=== PATIENT | male | born 1975 | race Caucasian/White ===

== ENCOUNTER 2018-07-30 10:47 | Emergency (ER) | payer MEDICARE, MEDICAID ==
[2018-07-30] MEDS ORDERED: METHYLPREDNISOLONE SOD SUCC 125MG/2ML VIAL ONE (11:43)
[2018-07-30 11:50] LABS: BASOPHILS % (AUTO) 0.8 % (0.0-5.0); EOSINOPHILS % (AUTO) 0.3 % (0.0-8.0); HEMATOCRIT 38.9 % (42-54); LYMPHOCYTES % (AUTO) 15.1 % (21.0-51.0); MEAN CORPUSCULAR HEMOGLOBIN 27.2 pg (27.0-33.0); MEAN CORPUSCULAR HGB CONC 33.5 g/dL (32.0-36.0); MEAN CORPUSCULAR VOLUME 81.3 fL (79-99); MONOCYTES % (AUTO) 5.5 % (3.0-13.0); NEUTROPHILS % (AUTO) 78.3 % (40.0-77.0); PLATELET COUNT (AUTO) 455 K/uL (130-400); RED BLOOD CELL COUNT(AUTO) 4.78 MIL/uL (4.50-6.20); WHITE BLOOD COUNT (AUTO) 10.9 K/uL (4.8-10.8)
[2018-07-30 11:55] LABS: CREATININE 1.1 mg/dL (0.5-1.5); POTASSIUM 3.8 mmol/L (3.5-5.1)
[2018-07-30] MEDS ORDERED: IPRATROPIUM/ALBUTEROL SULFATE 3 ML SOLUTION IH ONE (11:56)
[2018-07-30 12:00] LABS: INR 1.04 (0.85-1.15); PARTIAL THROMBOPLASTIN TIME 33.4 SEC (26.3-35.5); PROTHROMBIN TIME 10.9 SEC (9.6-11.6)
[2018-07-30 12:02] LABS: ALBUMIN 3.5 g/dL (3.5-5.0); BILIRUBIN,TOTAL 0.3 mg/dL (0.2-1.0); TOTAL PROTEIN, SERUM 8.4 g/dL (6.0-8.3)
[2018-07-30 12:13] LABS: B-TYPE NATRIURETIC PEPTIDE 20 pg/mL (0-100)
== END 2018-07-30 13:48 | disposition home or self-care (01) ==
LOC: EDH 10:47
DX: J20.9 Acute bronchitis, unspecified (principal); I87.2 Venous insufficiency (chronic) (peripheral); I10 Essential (primary) hypertension; F41.9 Anxiety disorder, unspecified; F32.9 Major depressive disorder, single episode, unspecified; Z87.891 Personal history of nicotine dependence; Z98.890 Other specified postprocedural states
CPT/HCPCS: 36415; 71045; 80053; 82550; 83880; 84484; 85025; 85610; 85730; 93005; 94640; 96374; 99285; J2930

== ENCOUNTER → 2018-08-22 | Outpatient (CLI) | payer MEDICARE | END | disposition home or self-care (01) | LOC: RAH 08:27 | PROVIDERS: ATTEND Internal Medicine | DX: K44.9 Diaphragmatic hernia without obstruction or gangrene (principal); K80.20 Calculus of gallbladder without cholecystitis without obstruction; M47.814 Spondylosis without myelopathy or radiculopathy, thoracic region; I71.2 Thoracic aortic aneurysm, without rupture; M51.34 Other intervertebral disc degeneration, thoracic region | CPT/HCPCS: 71250 ==

== ENCOUNTER → 2018-08-23 | Outpatient (CLI) | payer MEDICAID, MEDICARE ==
[~2018-08-23] MED LIST: ALBUTEROL SULFATE 0.083% 2.5 MG/3 ML INH IH ONE
== END | disposition home or self-care (01) ==
LOC: RESP 08:52
PROVIDERS: ATTEND Internal Medicine
DX: J40 Bronchitis, not specified as acute or chronic (principal)
CPT/HCPCS: 94060; 94727; 94729

== ENCOUNTER 2018-10-31 16:53 | Emergency (ER) | payer MEDICARE, MEDICAID ==
[2018-10-31 17:30] LABS: APPEARANCE,URINE Clear (CLEAR); BILIRUBIN,URINE Negative (NEGATIVE); COLOR,URINE Yellow (YELLOW); GLUCOSE, URINE (UA) Negative (NEGATIVE); KETONES,URINE Negative (NEGATIVE); LEUKOCYTE ESTERASE ,URINE Trace (NEGATIVE); NITRATE,URINE Negative (NEGATIVE); OCCULT BLOOD,URINE Negative (NEGATIVE); PH,URINE 6.5 (5.0-8.0); PROTEIN,URINE Negative (NEGATIVE); UROBILINOGEN,URINE 0.2 mg/dL (0.2-1.0)
[2018-10-31 17:34] LABS: AMPHET/METH SCREEN,URINE NEGATIVE (NEGATIVE); BARBITURATE SCREEN, URINE NEGATIVE (NEGATIVE); BENZODIAZEPINES SCREEN,URINE NEGATIVE (NEGATIVE); CANNABINOID SCREEN,URINE NEGATIVE (NEGATIVE); COCAINE SCREEN,URINE NEGATIVE (NEGATIVE); OPIATE SCREEN,URINE NEGATIVE (NEGATIVE); PHENCYCLIDINE SCREEN,URINE NEGATIVE (NEGATIVE)
[2018-10-31 17:54] LABS: BACTERIA,URINE Rare /HPF (None Seen); RBC,URINE None Seen /HPF (0-1); SQUAMOUS EPITHELIAL CELL,UR None Seen /HPF (0-2); WBC,URINE 0-1 /HPF (0-1)
[2018-10-31] MEDS ORDERED: MECLIZINE HCL 25 MG TABLET ONE (18:08)
[2018-10-31] MEDS ORDERED: ONDANSETRON HCL 4 MG/2 ML VIAL ONE (18:08)
[2018-10-31] MEDS ORDERED: SODIUM CHLORIDE 0.9% 1000ML 1,000 ML IV ONE (18:08)
[2018-10-31 19:05] LABS: BASOPHILS % (AUTO) 0.6 % (0.0-5.0); HEMATOCRIT 41.4 % (42-54); LYMPHOCYTES % (AUTO) 21.3 % (21.0-51.0); MEAN CORPUSCULAR HEMOGLOBIN 27.1 pg (27.0-33.0); MEAN CORPUSCULAR HGB CONC 32.5 g/dL (32.0-36.0); MEAN CORPUSCULAR VOLUME 83.5 fL (79-99); MONOCYTES % (AUTO) 12.8 % (3.0-13.0); NEUTROPHILS % (AUTO) 63.3 % (40.0-77.0); PLATELET COUNT (AUTO) 434 K/uL (130-400); RED BLOOD CELL COUNT(AUTO) 4.97 MIL/uL (4.50-6.20); RED CELL DISTRIBUTION WIDTH 15.4 % (11.0-15.5); WHITE BLOOD COUNT (AUTO) 10.6 K/uL (4.8-10.8)
[2018-10-31 19:28] LABS: POTASSIUM 3.6 mmol/L (3.5-5.1)
[2018-10-31 19:32] LABS: ALBUMIN 3.3 g/dL (3.5-5.0); BILIRUBIN,TOTAL 0.3 mg/dL (0.2-1.0); TOTAL PROTEIN, SERUM 7.9 g/dL (6.0-8.3)
== END 2018-10-31 19:46 | disposition home or self-care (01) ==
LOC: EDH 16:53
DX: R55 Syncope and collapse (principal); F32.9 Major depressive disorder, single episode, unspecified; I10 Essential (primary) hypertension; F41.9 Anxiety disorder, unspecified; Z98.890 Other specified postprocedural states
CPT/HCPCS: 36415; 70450; 80053; 80305; 81001; 84484; 85025; 93005; 96361; 96374; 99284; J2405; J7030

== ENCOUNTER 2019-01-11 07:30 | Emergency (ER) | payer MEDICARE, MEDICAID ==
[2019-01-11] MEDS ORDERED: ACETAMINOPHEN EXTRA STRENGTH 500 MG TABLET ONE (08:18)
[2019-01-11] MEDS ORDERED: ONDANSETRON HCL 4 MG/2 ML VIAL ONE (08:18)
[2019-01-11 08:22] LABS: BASOPHILS % (AUTO) 0.7 % (0.0-5.0); EOSINOPHILS % (AUTO) 2.6 % (0.0-8.0); HEMATOCRIT 37.6 % (42-54); LYMPHOCYTES % (AUTO) 21.4 % (21.0-51.0); MEAN CORPUSCULAR HEMOGLOBIN 27.3 pg (27.0-33.0); MEAN CORPUSCULAR HGB CONC 34.1 g/dL (32.0-36.0); MEAN CORPUSCULAR VOLUME 80.2 fL (79-99); MONOCYTES % (AUTO) 12.2 % (3.0-13.0); NEUTROPHILS % (AUTO) 63.1 % (40.0-77.0); PLATELET COUNT (AUTO) 396 K/uL (130-400); RED BLOOD CELL COUNT(AUTO) 4.69 MIL/uL (4.50-6.20); RED CELL DISTRIBUTION WIDTH 14.9 % (11.0-15.5); WHITE BLOOD COUNT (AUTO) 7.9 K/uL (4.8-10.8)
[2019-01-11 08:23] LABS: APPEARANCE,URINE Clear (CLEAR); BILIRUBIN,URINE Negative (NEGATIVE); COLOR,URINE Yellow (YELLOW); GLUCOSE, URINE (UA) Negative (NEGATIVE); KETONES,URINE Negative (NEGATIVE); LEUKOCYTE ESTERASE ,URINE Negative (NEGATIVE); NITRATE,URINE Negative (NEGATIVE); OCCULT BLOOD,URINE Negative (NEGATIVE); PROTEIN,URINE Negative (NEGATIVE); UROBILINOGEN,URINE 0.2 mg/dL (0.2-1.0)
[2019-01-11 08:47] LABS: POTASSIUM 3.8 mmol/L (3.5-5.1)
[2019-01-11 08:51] LABS: ALBUMIN 3.2 g/dL (3.5-5.0); BILIRUBIN,TOTAL 0.4 mg/dL (0.2-1.0)
== END 2019-01-11 10:30 | disposition home or self-care (01) ==
LOC: EDH 07:30
DX: R10.32 Left lower quadrant pain (principal); R11.2 Nausea with vomiting, unspecified; I10 Essential (primary) hypertension; F41.9 Anxiety disorder, unspecified; F32.9 Major depressive disorder, single episode, unspecified; Z98.890 Other specified postprocedural states
CPT/HCPCS: 36415; 74176; 80053; 81003; 83690; 85025; 96374; 99285; J2405

== ENCOUNTER 2019-08-05 18:12 | Emergency (ER) | payer MEDICARE, MEDICAID ==
[2019-08-05] MEDS ORDERED: ASPIRIN 81MG TAB.CHEW ONE (19:07)
[2019-08-05 19:35] LABS: BASOPHILS % (AUTO) 0.6 % (0.0-5.0); HEMATOCRIT 37.2 % (42-54); LYMPHOCYTES % (AUTO) 22.4 % (21.0-51.0); MEAN CORPUSCULAR HEMOGLOBIN 26.9 pg (27.0-33.0); MEAN CORPUSCULAR HGB CONC 33.5 g/dL (32.0-36.0); MEAN CORPUSCULAR VOLUME 80.3 fL (79-99); MONOCYTES % (AUTO) 13.3 % (3.0-13.0); NEUTROPHILS % (AUTO) 61.7 % (40.0-77.0); PLATELET COUNT (AUTO) 417 K/uL (130-400); RED BLOOD CELL COUNT(AUTO) 4.63 MIL/uL (4.50-6.20); RED CELL DISTRIBUTION WIDTH 15.3 % (11.0-15.5); WHITE BLOOD COUNT (AUTO) 8.5 K/uL (4.8-10.8)
[2019-08-05 19:41] LABS: APPEARANCE,URINE Clear (CLEAR); BILIRUBIN,URINE Negative (NEGATIVE); COLOR,URINE Yellow (YELLOW); GLUCOSE, URINE (UA) Negative (NEGATIVE); KETONES,URINE Negative (NEGATIVE); LEUKOCYTE ESTERASE ,URINE Negative (NEGATIVE); NITRATE,URINE Negative (NEGATIVE); OCCULT BLOOD,URINE Negative (NEGATIVE); PROTEIN,URINE Negative (NEGATIVE)
[2019-08-05 19:46] LABS: CREATININE 1.1 mg/dL (0.5-1.5); POTASSIUM 3.5 mmol/L (3.5-5.1)
[2019-08-05 19:47] LABS: INR 1.07 (0.85-1.15); PARTIAL THROMBOPLASTIN TIME 35.1 SEC (26.3-35.5); PROTHROMBIN TIME 11.2 SEC (9.6-11.6)
[2019-08-05 19:48] LABS: AMPHET/METH SCREEN,URINE NEGATIVE (NEGATIVE); BARBITURATE SCREEN, URINE NEGATIVE (NEGATIVE); BENZODIAZEPINES SCREEN,URINE NEGATIVE (NEGATIVE); CANNABINOID SCREEN,URINE NEGATIVE (NEGATIVE); COCAINE SCREEN,URINE NEGATIVE (NEGATIVE); OPIATE SCREEN,URINE NEGATIVE (NEGATIVE); PHENCYCLIDINE SCREEN,URINE NEGATIVE (NEGATIVE)
[2019-08-05 19:51] LABS: ALBUMIN 3.1 g/dL (3.5-5.0); BILIRUBIN,TOTAL 0.4 mg/dL (0.2-1.0); TOTAL PROTEIN, SERUM 8.4 g/dL (6.0-8.3)
[2019-08-05] MEDS ORDERED: IOHEXOL-350 75 ML VIAL IV ONE (20:32)
[2019-08-05] MEDS ORDERED: LORAZEPAM 2 MG/ML 1 ML VIAL ONE (20:41)
== END 2019-08-05 23:09 | disposition home or self-care (01) ==
LOC: EDH 18:12
DX: R07.89 Other chest pain (principal); R06.02 Shortness of breath; M79.89 Other specified soft tissue disorders; F41.9 Anxiety disorder, unspecified; F32.9 Major depressive disorder, single episode, unspecified; I10 Essential (primary) hypertension; Z90.49 Acquired absence of other specified parts of digestive tract; Z87.891 Personal history of nicotine dependence
CPT/HCPCS: 36415; 71045; 71275; 80053; 80305; 81003; 82550; 83880; 84484 ×2; 85025; 85378; 85610; 85730; 93005 ×2; 96374; 99285; J2060; Q9967

== ENCOUNTER → 2021-09-13 | Emergency (ER) | payer MEDICAID, MEDICARE | END | disposition left against medical advice (07) | LOC: EDH 12:29 | DX: M25.552 Pain in left hip (principal); Z53.21 Procedure and treatment not carried out due to patient leaving prior to being seen by health care provider ==

== ENCOUNTER 2024-09-19 10:07 | Inpatient (IN) | payer MEDICARE ==
[~2024-09-19] VITALS: Ht 193 cm; Wt 164.7 kg
[2024-09-19] MEDS ORDERED: ceFEPime HCL 1 GM VIAL IVPB SCH (11:00)
[2024-09-19] MEDS: ceFEPime HCL 1 GM VIAL IVPB ONE (11:06)
[2024-09-19 11:16] LABS: BASOPHILS # (AUTO) 0.07 K/uL (0.00-0.20); BASOPHILS % (AUTO) 0.7 % (0.0-5.0); EOSINOPHILS # (AUTO) 0.33 K/uL (0.00-0.70); EOSINOPHILS % (AUTO) 3.2 % (0.0-8.0); HEMATOCRIT 37.5 % (42-54); IMMATURE GRANULOCYTE ABSOLUTE 0.09 K/uL (0-1); LYMPHOCYTES # (AUTO) 1.6 K/uL (1.0-4.8); LYMPHOCYTES % (AUTO) 15.5 % (21.0-51.0); MEAN CORPUSCULAR HEMOGLOBIN 24.3 pg (27.0-33.0); MEAN CORPUSCULAR HGB CONC 31.2 g/dL (32.0-36.0); MONOCYTES # (AUTO) 1.2 K/uL (0.1-1.0); MONOCYTES % (AUTO) 11.3 % (3.0-13.0); NEUTROPHILS % (AUTO) 68.4 % (40.0-77.0); PLATELET COUNT (AUTO) 504 K/uL (130-400); RED BLOOD CELL COUNT(AUTO) 4.81 MIL/uL (4.50-6.20); WHITE BLOOD COUNT (AUTO) 10.2 K/uL (4.8-10.8)
[2024-09-19] MEDS: VANCOMYCIN KIT 1 GM/250 ML IV.KIT IV ONE (11:32)
[2024-09-19 11:43] LABS: CREATININE 1.2 mg/dL (0.5-1.3)
--- NOTE | 2024-09-19 11:55 | ERN ---
General Chief Complaint: Wound Check Stated Complaint: WOUND RT LEG Time Seen by MD: 10:08 History of Present Illness Initial Comments 49-year-old male came in for wound to leg with drainage in his started out as a boil however has been getting worse. Patient is a by had no concerns. Allergies: Coded Allergies: No Known Drug Allergies (Verified Allergy, 10/08/13) Past Medical History Past Medical History: Asthma, Hypertension Medical History Other: LYMPTEDEMA Past Surgical History: Cholecystectomy Surgical History Other: LEE KNEE ROS Dictation CONSTITUTIONAL: Negative except for HPI HEAD/FACE: Negative except for HPI EENT: Negative except for HPI RESPIRATORY: Negative except for HPI GASTROINTESTINAL/ABDOMINAL: Negative except for HPI GENITOURINARY: Negative except for HPI MUSCULOSKELETAL: Negative except for HPI INTEGUMENTARY: Negative except for HPI NEUROLOGICAL/PSYCH: Negative except for HPI HEMATOLOGIC/LYMPHATIC: Negative except for HPI All Systems Negative, Except as noted above. 13 point review of systems assessed and all negative except for above. Physical Exam Physical Exam Dictation There is extensive swelling along with erythema noted on the right leg wound with drainage there is some tenderness on outpatient around the draining site. Results Laboratory and Microbiology Lab and Micro Result Laboratory Tests Test 09/19/24 11:03 White Blood Count 10.2 K/uL (4.8-10.8) Red Blood Count 4.81 MIL/uL (4.50-6.20) Hemoglobin 11.7 g/dL (14.0-18.0) L Hematocrit 37.5 % (42-54) L Mean Corpuscular Volume 78.0 fL (79-99) L Mean Corpuscular Hemoglobin 24.3 pg (27.0-33.0) L Mean Corpuscular Hemoglobin Concent 31.2 g/dL (32.0-36.0) L Red Cell Distribution Width 15.0 % (11.0-15.5) Platelet Count 504 K/uL (130-400) H Mean Platelet Volume 8.5 fL (7.5-10.5) Immature Granulocyte % (Auto) 0.9 % (0-1) Neutrophils (%) (Auto) 68.4 % (40.0-77.0) Lymphocytes (%) (Auto) 15.5 % (21.0-51.0) L Monocytes (%) (Auto) 11.3 % (3.0-13.0) Eosinophils (%) (Auto) 3.2 % (0.0-8.0) Basophils (%) (Auto) 0.7 % (0.0-5.0) Neutrophils # (Auto) 7.0 K/uL (1.8-7.7) Lymphocytes # (Auto) 1.6 K/uL (1.0-4.8) Monocytes # (Auto) 1.2 K/uL (0.1-1.0) H Eosinophils # (Auto) 0.33 K/uL (0.00-0.70) Basophils # (Auto) 0.07 K/uL (0.00-0.20) Absolute Immature Granulocyte (auto 0.09 K/uL (0-1) Nucleated Red Blood Cells 0.0 % (0.0-0.19) Red Blood Cell Morphology See comments Sodium Level 141 mmol/L (136-145) Potassium Level 4.0 mmol/L (3.5-5.1) Chloride Level 105 mmol/L (101-111) Carbon Dioxide Level 31 mmol/L (21-32) Blood Urea Nitrogen 14 mg/dL (7-18) Creatinine 1.2 mg/dL (0.5-1.3) Glomerular Filtration Rate Calc 74 mL/min (>90) Random Glucose 86 mg/dL (70-105) Lactic Acid Level 1.8 mmol/L (0.8-2.5) Total Calcium 9.2 mg/dL (8.5-10.1) MDM MDM: Differential diagnosis: Rationale: Tests considered and ordered secondary to shared decision making include: Previous outside records reviewed: Old ER visits. Risk of complication and/or morbidity or mortality of patient management: None Medications-Per medication reconciliation Need for hospitalization: Patient does meet criteria for hospitalization. Need for emergency major/minor surgery: No There are no social concerns with this patient. Prescription drug management Prescriptions will include symptomatic care Patient's prior external medical records from other ER visits were reviewed by me as indicated. Prior testing and results from previous visits were reviewed. Prior tests were taken into account with medical decision making and resource utilization, independent historian/historians were used to obtain complete medical history. I independently interpreted the test that were performed, results were reviewed by me and considered findings on radiology if ordered. Medical management and examination interpretation discussions were had by me with other qualified healthcare professionals as indicated for the patient's care. ED Course Orders Procedure Category Date Status Time Cbc With Differential LAB 09/19/24 Complete 10:51 Basic Metabolic Panel LAB 09/19/24 Complete 10:51 Lactic Acid LAB 09/19/24 Complete 10:51 Procalcitonin LAB 09/19/24 In Process 10:51 Vancomycin 1g/250ml PHA 09/19/24 Complete Kit (Vancomycin 1g/2 11:00 Cefepime Hcl 1 Gm PHA 09/19/24 Complete Vial (Maxipime 1 Gm Vi 11:00 Cefepime Hcl 1 Gm PHA 09/19/24 Complete Vial (Maxipime 1 Gm Vi 11:00 Current Medications Medications (Trade) Dose Ordered Sig/Enio Route PRN Reason Start Time Stop Time Status Last Admin Dose Admin Cefepime HCl (MAXipime 1 GM vial) 1 gm ONCE IVPB 09/19/24 11:00 09/19/24 10:54 DC Cefepime HCl (MAXipime 1 GM vial) 1 gm ONCE ONCE IVPB 09/19/24 11:00 09/19/24 11:01 DC 09/19/24 11:06 Vancomycin HCl (Vancomycin 1g/ 250ml Kit) 1 gm ONCE ONCE IV 09/19/24 11:00 09/19/24 11:01 DC 09/19/24 11:32 Vital Signs Date Time Temp Pulse Resp B/P (MAP) Pulse Ox O2 Delivery O2 Flow Rate FiO2 09/19/24 10:36 77 18 150/87 99 Room Air* 0 21 09/19/24 10:14 74 16 97 Room Air 0 DX & DISP Disposition: Inpatient Departure Impression: Primary Impression: Cellulitis, leg Additional Impression: Leg abscess Condition: Stable Referrals: TANK BARNEY (PCP) ERASTO CAMPOS MD Sep 19, 2024 11:55
[2024-09-19] MEDS ORDERED: VANCOMYCIN PROTOCOL PER PHARMACY IV SCH (14:00)
[2024-09-19] MEDS ORDERED: ceFEPime HCL 2 GM VIAL IVPB SCH (14:00)
[2024-09-19] MEDS ORDERED: ondanSETRON 4MG INJ IVP PRN (14:00)
[2024-09-19] MEDS ORDERED: morPHINE 2 MG SYG IVP PRN (14:00)
--- NOTE | 2024-09-19 14:00 | HP ---
[facility] HISTORY AND PHYSICAL Date of Service: Sep 19, 2024 Time of Service: 13:49 HISTORY OF PRESENT ILLNESS: [49 [facility] with complaints of Right lower extremity redness, wound drainage and pain. According the patient's mother they saw his leg 3 days a go with a small boil, and it became progressively worse and started draining today, hence they decided to come to the ED for further evaluation. In the ED, his VS reviewed: pulse 74, respiratory rate 16, blood pressure 150/87, pulse oximetry 97% on room air. Laboratory data reviewed, WBC 10.2, HGB 11.7, HCT 37.5, no left shift noted. His chemistry is fairly unremarkable, procalcitonin 0.10. Patient is afebrile. Denies any pain at this time. Patient was seen and examined in ED 19, his right lower extremity noted with draining wound with serosanguineous drainage noted. He was referred to the hospitalist for further evaluation and management. ] REVIEW OF SYSTEMS CONSTITUTIONAL: Denies fevers, chills, or night sweats. No unintentional weight loss reported. NEUROLOGICAL: Denies headache, amaurosis fugax, motor weakness, sensory deficit, vertigo/spinning sensation, gait abnormalities, or tremors. ENT: No hearing loss, otalgia, otorrhea, rhinitis, rhinorrhea, hoarseness, or sore throat. CARDIOVASCULAR: Denies any exertional angina, dyspnea on exertion, orthopnea, paroxysmal nocturnal dyspnea, palpitations, life-threatening arrhythmias, claudication. PULMONARY: Denies any shortness of breath, cough, phlegm/sputum, hemoptysis, pleuritic chest pain. SLEEP: Denies morning headaches, daytime somnolence or napping. Denies difficulty falling asleep, staying asleep, waking from sleep. Denies knowledge of snoring. GASTROINTESTINAL: Denies any type of dysphagia to either liquids or solids. Denies nausea, vomiting, pyrosis, early satiety, abdominal pain, diarrhea, constipation, or changes in stool consistency or caliber. Denies coffee-ground emesis, hematemesis, hematochezia, or melanotic stools. GENITOURINARY: Denies frequency, urgency, nocturia, hematuria or incontinence (Storage/Irritative symptoms.) Low urinary stream, straining to void, urinary intermittency or hesitancy, splitting of the voiding stream, terminal dribbling. ENDOCRINOLOGIC: Denies polyuria, polydipsia, polyphagia or heat/cold intolerances. HEMATOLOGIC: Denies thrombophilia/previous clots, or coagulopathy/bleeding disorders. ONCOLOGIC: Denies personal history of malignancy. DERMATOLOGIC: Reports redness to right LE, with pus noted PSYCHIATRIC: Denies any suicidal or homicidal ideation. Denies hallucinations. PAST MEDICAL HISTORY: [ ] PAST SURGICAL HISTORY: [ ] PAST SOCIAL HISTORY: [ ] FAMILY HISTORY: [ ] Coded Allergies: No Known Drug Allergies (Verified Allergy, 10/08/13) PHYSICAL EXAM GENERAL APPEARANCE: The patient is awake, alert, and oriented, in no acute cardiopulmonary distress. NEUROLOGICAL: Cranial nerves II-XII grossly intact. Motor is 5/5 in bilateral upper and lower extremities proximal to distal. No sensory deficits. HEENT: Face is symmetric. Pupils are equal and reactive. Extraocular movements are intact. NECK: Supple. No JVD. No thyromegaly. No submental, submandibular, pre- /postauricular, occipital or supraclavicular lymphadenopathy. CHEST: Normal chest expansion. No Telemetry. LUNGS: Absence of any rales, rhonchi or any wheezing. CARDIOVASCULAR: Regular. S1 and S2 normal. No appreciable rubs, murmurs or gallops. ABDOMEN: Soft, nontender, and nondistended. There is no rebound, voluntary guarding, or rigidity. : Deferred. No Bennett. EXTREMITIES: BLE lymphedema with right LE drainage noted SKIN: Lymphedema, RLE wound Vital Sign (Last 24 Hours) 09/19/24 12:11 Pulse 80 Resp 16 B/P (MAP) 151/78 Pulse Ox 96 O2 Delivery Room Air* O2 Flow Rate 0 FiO2 21 LABS: Laboratory: Test 09/19/24 11:03 Range/Units White Blood Count 10.2 4.8-10.8 K/uL Red Blood Count 4.81 4.50-6.20 MIL/uL Hemoglobin 11.7 L 14.0-18.0 g/dL Hematocrit 37.5 L 42-54 % Mean Corpuscular Volume 78.0 L 79-99 fL Mean Corpuscular Hemoglobin 24.3 L 27.0-33.0 pg Mean Corpuscular Hemoglobin Concent 31.2 L 32.0-36.0 g/dL Red Cell Distribution Width 15.0 11.0-15.5 % Platelet Count 504 H 130-400 K/uL Mean Platelet Volume 8.5 7.5-10.5 fL Immature Granulocyte % (Auto) 0.9 0-1 % Neutrophils (%) (Auto) 68.4 40.0-77.0 % Lymphocytes (%) (Auto) 15.5 L 21.0-51.0 % Monocytes (%) (Auto) 11.3 3.0-13.0 % Eosinophils (%) (Auto) 3.2 0.0-8.0 % Basophils (%) (Auto) 0.7 0.0-5.0 % Neutrophils # (Auto) 7.0 1.8-7.7 K/uL Lymphocytes # (Auto) 1.6 1.0-4.8 K/uL Monocytes # (Auto) 1.2 H 0.1-1.0 K/uL Eosinophils # (Auto) 0.33 0.00-0.70 K/uL Basophils # (Auto) 0.07 0.00-0.20 K/uL Absolute Immature Granulocyte (auto 0.09 0-1 K/uL Nucleated Red Blood Cells 0.0 0.0-0.19 % Red Blood Cell Morphology See comments Sodium Level 141 136-145 mmol/L Potassium Level 4.0 3.5-5.1 mmol/L Chloride Level 105 101-111 mmol/L Carbon Dioxide Level 31 21-32 mmol/L Blood Urea Nitrogen 14 7-18 mg/dL Creatinine 1.2 0.5-1.3 mg/dL Glomerular Filtration Rate Calc 74 >90 mL/min Random Glucose 86 70-105 mg/dL Lactic Acid Level 1.8 0.8-2.5 mmol/L Total Calcium 9.2 8.5-10.1 mg/dL Procalcitonin 0.10 0.05-0.5 ng/mL Current Medications Medications (Trade) Dose Ordered Sig/Enio Route PRN Reason Start Time Stop Time Status Last Admin Dose Admin Cefepime HCl (MAXipime 1 GM vial) 1 gm ONCE IVPB 09/19/24 11:00 09/19/24 10:54 DC DIAGNOSTICS / RADIOLOGY: [ ] ASSESSMENT: [Right lower extremity cellulitis with abscess, POA Morbid obesity, BMI 48.8 kg/M2 History of bilateral lower extremity lymphedema ] PLAN: [Patient will be admitted in medical-surgical floor We will be consulting general surgeon Patient we will start with IV antibiotic with cefepime and vancomycin per renal protocol We will be consulting Infectious Disease due to abscess and IV antibiotic stewardship We will consult Wound Care team to evaluate and treat We will order hemoglobin A1c, lipid panel Patient will have heart healthy diet We will order arterial Doppler, venous Doppler, soft tissue ultrasound to the right lower extremity and CT without contrast of the right lower extremities We will continue with pain management GI and DVT prophylaxis We will repeat labs tomorrow Patient is a full code Discussed the plan with the patient's mother at bedside, they verbalized understanding and is in agreement with the plan Case discussed with attending physician, Dr. Maurer, above plan was formulated] ADVANCED CARE PLANNING 1. Which of the following were discussed? Hospice Care - Yes / No Therapeutic options - Yes / No Advance Directives - Yes / No Other discussions - 2. Discussed with who? Mother and Patient 3. Voluntary nature of this service was explained to the patient? Yes / No 4. Amount of time spent - _20 mins 5. Reviewed by Physician? (if this service was performed by NPP) Yes / No ATTESTATION BY PHYSICIAN I have seen and examined the patient. I reviewed the documentation, medical decision making, and treatment plan as noted by the mid-level provider above. I agree with the findings and plan of care. REMBERTO MAURER MD, JANICE B AGPCAGBI Sep 19, 2024 14:00
[2024-09-19 14:14] LABS: HEMOGLOBIN A1C 5.5 % (4.0-6.0)
[2024-09-19 14:15] LABS: CHOLESTEROL 123 mg/dL (<200); HDL CHOLESTEROL 43 mg/dL (29-71); LDL DIRECT 67 mg/dL (0-99); TRIGLYCERIDES 65 mg/dL (30-200)
--- NOTE | 2024-09-19 14:26 | NUR ---
WOUND CARE CONSULT: PATIENT REPORT GIVEN TO DR FRANK
--- NOTE | 2024-09-19 14:43 | HMCIMG ---
ULTRASOUND SOFT TISSUE LOWER EXTREMITY RIGHT INDICATION: Abscess evaluation. COMPARISON: None TECHNIQUE: Multiplanar sonographic images of the posterolateral right calf were obtained earlier in real-time using grayscale and color Doppler technique, and subsequently made available for review. FINDINGS/IMPRESSION: 10.3 cm long by 1.9 cm wide complex nonorganized nondrainable fluid collection demonstrated along the posterolateral right calf with surrounding hyperemia, but still suggesting evolving abscess.
--- NOTE | 2024-09-19 15:26 | NUR ---
GEN SURGERY CONSULT: PATIENT REPORT GIVEN TO DR THORNTON.
--- NOTE | 2024-09-19 17:19 | HMCIMG ---
US VENOUS DOPPLER BILATERAL CLINICAL HISTORY: Lower extremity edema COMPARISON: None FINDINGS: Bilateral lower extremity venous Doppler ultrasound was performed. The greater saphenous, common femoral, deep femoral, femoral , popliteal veins are widely patent and easily compressible with the ultrasound probe. Calf veins were not visualized nor was the distal right superficial femoral vein.. IMPRESSION: Limited study with no identified deep venous thrombosis in the visualized veins.
[2024-09-19 18:00] VITALS: BP 158/84; PULSE 78; RESP 18; TEMP 97.9
--- NOTE | 2024-09-19 18:34 | CONS ---
GENERAL SURGERY CONSULTATION NOTE Date/Time Patient Seen: 09/19/2024 3:30 p.m. Requesting Physician: GABI Segura Reason for Consultation: Right lower extremity cellulitis History of Present Illness: This is a 49-year-old male with a history of lymphedema of the right lower extremity. He intermittently uses compression or pneumatic devices to assist in decreasing swelling. Over the last four days patient and mother who was present at the bedside report that redness and pain had developed in the right calf. He has been unable to use his compression or pneumatic devices for about a month. The redness and swelling continued to worsen and began draining about two days ago. They reported a green drainage. The next day the redness improved significantly. He was brought here to the emergency department for antibiotics if necessary. Patient is afebrile and hemodynamically stable. He has no leukocytosis. Ultrasound was performed of the area which showed a complex developing fluid collection in the right calf. Surgery was consulted for possib le abscess. Past Medical History: High blood pressure Past Surgical History: Cholecystectomy Family History: Noncontributory Social History: Nonsmoker Nondrinker Current Medications Medications (Trade) Dose Ordered Sig/Enio Route Start Time Stop Time Status Last Admin Dose Admin Cefepime HCl (MAXipime 1 GM vial) 1 gm ONCE IVPB 09/19/24 11:00 09/19/24 10:54 DC Cefepime HCl (MAXipime 2 gm vial) 2 gm Q8H IVPB 09/19/24 14:00 09/19/24 14:08 DC Cefepime HCl (MAXipime 2 gm vial) 2 gm Q8H IVPB 09/19/24 19:00 09/29/24 18:59 Enoxaparin Sodium (Lovenox (Pharmacy To Dose)) 1 unit Q24H SQ 09/19/24 14:00 09/19/24 14:02 DC Enoxaparin Sodium (Lovenox) 40 mg BID SQ 09/19/24 21:00 10/19/24 20:59 Famotidine (Pepcid 20mg Tab) 20 mg BID PO 09/19/24 21:00 10/19/24 20:59 Vancomycin HCl 250 ml @ 125 mls/hr Q12H IV 09/19/24 23:00 09/29/24 22:59 Vancomycin HCl (Vancomycin Protocol) 1 each AD IV 09/19/24 14:00 10/03/24 13:59 Review of Systems: CONST: No fever, fatigue, or weight changes. EYES: No recent vision problems. ENT: No congestion, ear pain, or sore throat. C/V: No chest pain, palpitations, or edema. RESP: No cough, congestion, wheezing or shortness of breath. GI: No abdominal pain, nausea, vomiting, constipation, or diarrhea. : No incontinence or dysuria. SKIN: Positive erythema at the right calf NEURO: No headache, focal numbness or weakness, dizziness, or seizures. PSYCH: No depression or anxiety. HEME: No abnormal bruising or bleeding. LYMPH: No swollen glands. Physical Examination: GENERAL: No acute distress. HEAD: Normal with no signs of head trauma. LUNGS: Respirations nonlabored HEART: Regular rate and rhythm VASC: Peripheral pulses +2 bilaterally. ABD: Soft, nondistended, nontender, no rebound, no guarding : Not examined LYMPH: No lymphadenopathy noted. EXT: Significant nonpitting edema of the right lower extremity, well-demarcated area of erythema with two punctate draining ulcers. No fluctuance SKIN: No rashes or lesions noted. NEURO: Awake, alert, and oriented x3. No focal sensory or strength deficits noted. Vital Signs (last 8hr) Date Time Temp Pulse Resp B/P (MAP) Pulse Ox O2 Delivery O2 Flow Rate FiO2 09/19/24 16:11 78 16 136/60 99 Room Air* 0 21 09/19/24 14:43 97.9 71 16 151/78 96 Room Air* 0 21 09/19/24 12:11 80 16 151/78 96 Room Air* 0 21 09/19/24 10:36 77 18 150/87 99 Room Air* 0 21 Laboratory: Hematology Labs: Test 09/19/24 11:03 Range/Units White Blood Count 10.2 4.8-10.8 K/uL Red Blood Count 4.81 4.50-6.20 MIL/uL Hemoglobin 11.7 L 14.0-18.0 g/dL Hematocrit 37.5 L 42-54 % Mean Corpuscular Volume 78.0 L 79-99 fL Mean Corpuscular Hemoglobin 24.3 L 27.0-33.0 pg Mean Corpuscular Hemoglobin Concent 31.2 L 32.0-36.0 g/dL Red Cell Distribution Width 15.0 11.0-15.5 % Platelet Count 504 H 130-400 K/uL Mean Platelet Volume 8.5 7.5-10.5 fL Immature Granulocyte % (Auto) 0.9 0-1 % Neutrophils (%) (Auto) 68.4 40.0-77.0 % Lymphocytes (%) (Auto) 15.5 L 21.0-51.0 % Monocytes (%) (Auto) 11.3 3.0-13.0 % Eosinophils (%) (Auto) 3.2 0.0-8.0 % Basophils (%) (Auto) 0.7 0.0-5.0 % Neutrophils # (Auto) 7.0 1.8-7.7 K/uL Lymphocytes # (Auto) 1.6 1.0-4.8 K/uL Monocytes # (Auto) 1.2 H 0.1-1.0 K/uL Eosinophils # (Auto) 0.33 0.00-0.70 K/uL Basophils # (Auto) 0.07 0.00-0.20 K/uL Absolute Immature Granulocyte (auto 0.09 0-1 K/uL Nucleated Red Blood Cells 0.0 0.0-0.19 % Red Blood Cell Morphology See comments Chemistry Labs: Test 09/19/24 11:03 Range/Units Sodium Level 141 136-145 mmol/L Potassium Level 4.0 3.5-5.1 mmol/L Chloride Level 105 101-111 mmol/L Carbon Dioxide Level 31 21-32 mmol/L Blood Urea Nitrogen 14 7-18 mg/dL Creatinine 1.2 0.5-1.3 mg/dL Glomerular Filtration Rate Calc 74 >90 mL/min Random Glucose 86 70-105 mg/dL Hemoglobin A1c 5.5 4.0-6.0 % Estimated Average Glucose (eAG) 111 70-126 mg/dL Lactic Acid Level 1.8 0.8-2.5 mmol/L Total Calcium 9.2 8.5-10.1 mg/dL Triglycerides Level 65 30-200 mg/dL Cholesterol Level 123 <200 mg/dL LDL Cholesterol 67 0-99 mg/dL HDL Cholesterol 43 29-71 mg/dL Procalcitonin 0.10 0.05-0.5 ng/mL Diagnostics / Radiology: PATIENT: RODRIGUE RICHARD MR#: [id number] : 1975 SEX: M AGE: 49 LOCATION: [facility] ORDER 1349 STATUS: ADM IN HOSPITAL REPORT#: [id number] SERVICE 1344 REASON: R/O DVT ORDERING PHYSICIAN: LEVI DAIGLE PROCEDURE: VENOUS LEE - US VENOUS DOPPLER BILATERAL US VENOUS DOPPLER BILATERAL CLINICAL HISTORY: Lower extremity edema COMPARISON: None FINDINGS: Bilateral lower extremity venous Doppler ultrasound was performed. The greater saphenous, common femoral, deep femoral, femoral , popliteal veins are widely patent and easily compressible with the ultrasound probe. Calf veins were not visualized nor was the distal right superficial femoral vein.. IMPRESSION: Limited study with no identified deep venous thrombosis in the visualized veins. DICTATED BY: MAYA MARIO DO DATE: 09/19/241713 ELECTRONICALLY SIGNED BY: MAYA MARIO DO DATE: 09/19/24 171 PATIENT: RODRIGUE RICHARD MR#: [id number] : 1975 SEX: M AGE: 49 LOCATION: [facility] ORDER [id number] STATUS: ADM IN REPORT#: [id number] SERVICE 1405 REASON: ABSCESS ORDERING PHYSICIAN: LEVI DAIGLE PROCEDURE: SOFT LOW E - US SOFT TISSUE LOWER EXTREMITY ULTRASOUND SOFT TISSUE LOWER EXTREMITY RIGHT INDICATION: Abscess evaluation. COMPARISON: None TECHNIQUE: Multiplanar sonographic images of the posterolateral right calf were obtained earlier in real-time using grayscale and color Doppler technique, and subsequently made available for review. FINDINGS/IMPRESSION: 10.3 cm long by 1.9 cm wide complex nonorganized nondrainable fluid collection demonstrated along the posterolateral right calf with surrounding hyperemia, but still suggesting evolving abscess. DICTATED BY: ISA ALTAMIRANO MD DATE: 09/19/24 1439 ELECTRONICALLY SIGNED BY: ISA ALTAMIRANO MD DATE: 09/19/24 1443 Assessment: This is a 49-year-old male with severe right lower extremity lymphedema and skin and soft tissue infection of the right calf. On physical exam there does not appear to be an abscess or drainable fluid collection. Plan: I have asked the nurse to patrick the erythema to assess for improvement over the next 24-48 hours. If the erythema continues to improve patient will not likely need surgical intervention. If the patient is not improving over the next 24-48 hours we will likely take the patient to the OR for exploration and drainage. JIM PAK DO Sep 19, 2024 18:34
[2024-09-19] MEDS ORDERED: LEVO25CA4 PO (18:47)
[2024-09-19] MEDS ORDERED: CITA-108 PO (18:47)
[2024-09-19] MEDS ORDERED: SENN8.6T32 PO (18:57)
[2024-09-19] MEDS ORDERED: OMEP40CA21 PO (18:57)
[2024-09-19] MEDS ORDERED: BUPR-49 PO (18:57)
[2024-09-19] MEDS ORDERED: ASPI-1443 PO (18:57)
[2024-09-19] MEDS ORDERED: FURO80TA3 PO (18:57)
[2024-09-19] MEDS ORDERED: VITAMIN D PO (18:57)
[2024-09-19] MEDS ORDERED: IRBE300T26 PO (18:57)
[2024-09-19] MEDS ORDERED: ALEGRA (18:57)
[2024-09-19] MEDS ORDERED: HYDR25TA67 PO (18:58)
[2024-09-19] MEDS ORDERED: FERR-82 PO (18:59)
[2024-09-19] MEDS ORDERED: TIMXE255OS OS (19:04)
[2024-09-19] MEDS ORDERED: LATA2.5D14 OS (19:04)
[2024-09-19] MEDS ORDERED: BRIM5DRO5 OS (19:04)
[2024-09-19] MEDS ORDERED: LORA-192 PO (19:05)
[2024-09-19] MEDS: ceFEPime HCL 2 GM VIAL IVPB SCH (20:25)
[2024-09-19] MEDS: ENOXAPARIN SODIUM 40 MG/0.4 ML SYRINGE SQ SCH (20:26)
[2024-09-19] MEDS: FAMOTIDINE 20MG TAB PO SCH (20:26)
[2024-09-19 20:31] VITALS: BP 157/83; PULSE 83; RESP 20; TEMP 98.2
[2024-09-19] MEDS ORDERED: COMPOUND IV REFRIGERATED 1 EACH IVSOLN MISC PRN (23:30)
[2024-09-19] MEDS: VANCOMYCIN 1.5 GM/250 ML BAG 250 ML IV SCH (23:48)
[2024-09-20] VITALS (8 sets, daily range): BP systolic 94–174; BP diastolic 45–92; PULSE 75–100; RESP 17–21; TEMP 97.5–98.2; O2SAT 98
[2024-09-20 04:49] LABS: BASOPHILS # (AUTO) 0.04 K/uL (0.00-0.20); BASOPHILS % (AUTO) 0.5 % (0.0-5.0); EOSINOPHILS # (AUTO) 0.21 K/uL (0.00-0.70); EOSINOPHILS % (AUTO) 2.7 % (0.0-8.0); HEMATOCRIT 31.8 % (42-54); IMMATURE GRANULOCYTE ABSOLUTE 0.07 K/uL (0-1); LYMPHOCYTES # (AUTO) 1.4 K/uL (1.0-4.8); LYMPHOCYTES % (AUTO) 17.8 % (21.0-51.0); MEAN CORPUSCULAR HEMOGLOBIN 24.3 pg (27.0-33.0); MEAN CORPUSCULAR HGB CONC 31.1 g/dL (32.0-36.0); MEAN CORPUSCULAR VOLUME 78.1 fL (79-99); MONOCYTES % (AUTO) 12.1 % (3.0-13.0); NEUTROPHILS # (AUTO) 5.2 K/uL (1.8-7.7); PLATELET COUNT (AUTO) 469 K/uL (130-400); RED BLOOD CELL COUNT(AUTO) 4.07 MIL/uL (4.50-6.20); WHITE BLOOD COUNT (AUTO) 7.9 K/uL (4.8-10.8)
[2024-09-20 05:12] LABS: ALBUMIN 2.1 g/dL (3.5-5.0); BILIRUBIN,TOTAL 0.3 mg/dL (0.2-1.0); CREATININE 1.2 mg/dL (0.5-1.3); POTASSIUM 3.3 mmol/L (3.5-5.1); TOTAL PROTEIN, SERUM 6.6 g/dL (6.0-8.3)
[2024-09-20] MEDS: PoTASSium chloRIDE 20MEQ ER 20 MEQ ERTAB PO ONE (06:21)
--- NOTE | 2024-09-20 08:23 | PN ---
[facility] PROGRESS NOTE Date of Service: Sep 20, 2024 Time of Service: 08:23 SUBJECTIVE: The patient is a 49-year-old male with a past medical history of bilateral lower limb lymphedema, hypertension, anemia, hypothyroidism presented to ED yesterday with a chief complaint of right lower extremity calf redness, greenish wound discharge and pain. It started with a small boil 3 days ago and became progressively worsened started draining yesterday. In the emergency department, serosanguineous discharge was noted. Labs were nonsignificant. He was started on cefepime and vancomycin. Ultrasound soft tissue lower extremity showed 10.3 cm long and 1.9 cm wide non drainable fluid collection on the posterolateral right calf with surrounding hyperemia, evolving abscess. He was admitted to [facility] on medical surgical floor for the management of right lower extremity cellulitis with abscess. 09/20/2024- patient was examined at bedside, lying comfortably, not in acute distress. The patient has a dressing over the draining abscess. No any acute overnight episodes, running slightly hypertensive. Labs: Hemoglobin 9.9, thrombocytosis with platelets 469, potassium 3.3, hemoglobin A1c 5.5. Per Dr. Lopez, the patient will be monitored for 24-48 hours for evolving abscess. If the condition not improve, exploration with drainage will be performed. ID recommendations are pending REVIEW OF SYSTEMS CONSTITUTIONAL: Denies fevers, chills, or night sweats. No unintentional weight loss reported. NEUROLOGICAL: Denies headache, amaurosis fugax, motor weakness, sensory deficit, vertigo/spinning sensation, gait abnormalities, or tremors. ENT: No hearing loss, otalgia, otorrhea, rhinitis, rhinorrhea, hoarseness, or sore throat. CARDIOVASCULAR: Denies any exertional angina, dyspnea on exertion, orthopnea, paroxysmal nocturnal dyspnea, palpitations, life-threatening arrhythmias, claudication. PULMONARY: Denies any shortness of breath, cough, phlegm/sputum, hemoptysis, pleuritic chest pain. SLEEP: Denies morning headaches, daytime somnolence or napping. Denies difficulty falling asleep, staying asleep, waking from sleep. Denies knowledge of snoring. GASTROINTESTINAL: Denies any type of dysphagia to either liquids or solids. Denies nausea, vomiting, pyrosis, early satiety, abdominal pain, diarrhea, constipation, or changes in stool consistency or caliber. Denies coffee-ground emesis, hematemesis, hematochezia, or melanotic stools. GENITOURINARY: Denies frequency, urgency, nocturia, hematuria or incontinence (Storage/Irritative symptoms.) Low urinary stream, straining to void, urinary intermittency or hesitancy, splitting of the voiding stream, terminal dribbling. ENDOCRINOLOGIC: Denies polyuria, polydipsia, polyphagia or heat/cold intolerances. HEMATOLOGIC: Denies thrombophilia/previous clots, or coagulopathy/bleeding disorders. ONCOLOGIC: Denies personal history of malignancy. DERMATOLOGIC: Reports redness to right LE, with pus noted, bilateral lymphedema noted PSYCHIATRIC: Denies any suicidal or homicidal ideation. Denies hallucinations. PHYSICAL EXAM GENERAL APPEARANCE: The patient is awake, alert, and oriented, in no acute cardiopulmonary distress. NEUROLOGICAL: Cranial nerves II-XII grossly intact. Motor is 5/5 in bilateral upper and lower extremities proximal to distal. No sensory deficits. HEENT: Face is symmetric. Pupils are equal and reactive. Extraocular movements are intact. NECK: Supple. No JVD. No thyromegaly. No submental, submandibular, pre- /postauricular, occipital or supraclavicular lymphadenopathy. CHEST: Normal chest expansion. No Telemetry. LUNGS: Absence of any rales, rhonchi or any wheezing. CARDIOVASCULAR: Regular. S1 and S2 normal. No appreciable rubs, murmurs or gallops. ABDOMEN: Soft, nontender, and nondistended. There is no rebound, voluntary guarding, or rigidity. : Deferred. No Bennett. EXTREMITIES: BLE lymphedema with right LE drainage noted SKIN: Lymphedema, RLE wound Vital Signs (last 8hr) Date Time Temp Pulse Resp B/P (MAP) Pulse Ox O2 Delivery O2 Flow Rate FiO2 09/20/24 04:54 97.9 100 21 164/88 98 Room Air LABS: Laboratory: Test 09/20/24 04:11 09/19/24 11:03 Range/Units White Blood Count 7.9 4.8-10.8 K/uL Red Blood Count 4.07 L 4.50-6.20 MIL/uL Hemoglobin 9.9 L 14.0-18.0 g/dL Hematocrit 31.8 L 42-54 % Mean Corpuscular Volume 78.1 L 79-99 fL Mean Corpuscular Hemoglobin 24.3 L 27.0-33.0 pg Mean Corpuscular Hemoglobin Concent 31.1 L 32.0-36.0 g/dL Red Cell Distribution Width 15.0 11.0-15.5 % Platelet Count 469 H 130-400 K/uL Mean Platelet Volume 8.5 7.5-10.5 fL Immature Granulocyte % (Auto) 0.9 0-1 % Neutrophils (%) (Auto) 66.0 40.0-77.0 % Lymphocytes (%) (Auto) 17.8 L 21.0-51.0 % Monocytes (%) (Auto) 12.1 3.0-13.0 % Eosinophils (%) (Auto) 2.7 0.0-8.0 % Basophils (%) (Auto) 0.5 0.0-5.0 % Neutrophils # (Auto) 5.2 1.8-7.7 K/uL Lymphocytes # (Auto) 1.4 1.0-4.8 K/uL Monocytes # (Auto) 1.0 0.1-1.0 K/uL Eosinophils # (Auto) 0.21 0.00-0.70 K/uL Basophils # (Auto) 0.04 0.00-0.20 K/uL Absolute Immature Granulocyte (auto 0.07 0-1 K/uL Nucleated Red Blood Cells 0.0 0.0-0.19 % Sodium Level 144 136-145 mmol/L Potassium Level 3.3 L 3.5-5.1 mmol/L Chloride Level 107 101-111 mmol/L Carbon Dioxide Level 27 21-32 mmol/L Blood Urea Nitrogen 14 7-18 mg/dL Creatinine 1.2 0.5-1.3 mg/dL Glomerular Filtration Rate Calc 74 >90 mL/min Random Glucose 106 H 70-105 mg/dL Total Calcium 8.6 8.5-10.1 mg/dL Total Bilirubin 0.3 0.2-1.0 mg/dL Aspartate Amino Transf (AST/SGOT) 19 10-37 U/L Alanine Aminotransferase (ALT/SGPT) 21 12-78 U/L Alkaline Phosphatase 132 50-136 U/L Total Protein 6.6 6.0-8.3 g/dL Albumin 2.1 L 3.5-5.0 g/dL Red Blood Cell Morphology See comments Hemoglobin A1c 5.5 4.0-6.0 % Estimated Average Glucose (eAG) 111 70-126 mg/dL Lactic Acid Level 1.8 0.8-2.5 mmol/L Triglycerides Level 65 30-200 mg/dL Cholesterol Level 123 <200 mg/dL LDL Cholesterol 67 0-99 mg/dL HDL Cholesterol 43 29-71 mg/dL Procalcitonin 0.10 0.05-0.5 ng/mL Current Medications Medications (Trade) Dose Ordered Sig/Enio Route PRN Reason Start Time Stop Time Status Last Admin Dose Admin Acetaminophen (TYLenol 500MG TAB) 500 mg Q6H PRN PO MILD PAIN (1-3) 09/19/24 14:00 10/19/24 13:59 Cefepime HCl (MAXipime 1 GM vial) 1 gm ONCE IVPB 09/19/24 11:00 09/19/24 10:54 DC Cefepime HCl (MAXipime 2 gm vial) 2 gm Q8H IVPB 09/19/24 14:00 09/19/24 14:08 DC Cefepime HCl (MAXipime 2 gm vial) 2 gm Q8H IVPB 09/19/24 19:00 09/29/24 18:59 09/20/24 02:59 2 GM Enoxaparin Sodium (Lovenox (Pharmacy To Dose)) 1 unit Q24H SQ 09/19/24 14:00 09/19/24 14:02 DC Enoxaparin Sodium (Lovenox) 40 mg BID SQ 09/19/24 21:00 10/19/24 20:59 09/19/24 20:26 40 MG Famotidine (Pepcid 20mg Tab) 20 mg BID PO 09/19/24 21:00 10/19/24 20:59 09/19/24 20:26 20 MG Morphine Sulfate (morPHINE 2MG SYG) 2 mg Q4H PRN IVP SEVERE PAIN (7-10) 09/19/24 14:00 09/26/24 13:59 Ondansetron HCl (zoFRAN 4MG INJ) 4 mg Q6H PRN IVP NAUSEA/VOMITING 09/19/24 14:00 10/19/24 13:59 Vancomycin HCl 250 ml @ 125 mls/hr Q12H IV 09/19/24 23:00 09/29/24 22:59 09/19/24 23:48 125 MLS/HR Vancomycin HCl (Vancomycin Protocol) 1 each AD IV 09/19/24 14:00 10/03/24 13:59 DIAGNOSTICS / RADIOLOGY: [facility] [address] [place], [place] [id number] IMAGING REPORT Signed PATIENT: RODRIGUE RICHARD MR#: [id number] : 1975 SEX: M AGE: 49 LOCATION: [facility]BH ORDER 1345 STATUS: ADM IN [facility] REPORT#: [id number] SERVICE 1346 REASON: PAD VS PVD ORDERING PHYSICIAN: LEVI DAIGLE PROCEDURE: ART B LE - US ARTERIAL BILAT LOW EXT DUPL US ARTERIAL BILAT LOW EXT DUPL REASON: PAD VS PVD COMPARISON: None TECHNIQUE: Bilateral lower extremity arterial Doppler was attempted. This was limited due to, particularly on the right, due to patient body habitus and a large amount of edema. FINDINGS: There is triphasic waveform in the right common femoral artery. There is elevated velocity in the proximal superficial femoral artery consistent with stenosis. Mid and distal SFA as well as the popliteal arteries were not visualized, posterior tibial and anterior tibial arteries also appear not well seen. There is triphasic flow present in the dorsalis pedis artery with preservation of flow velocity. Left leg shows triphasic waveforms present from common femoral artery through the popliteal artery, flow velocities are preserved. The posterior tibial and anterior tibial were not well visualized, there is biphasic waveform dorsalis pedis with a normal volume of flow. IMPRESSION: 1. Markedly limited exam with multiple vessels not well seen. 2. There is persistent triphasic waveform right dorsalis pedis artery suggesting absence of significant inflow occlusion. 3. There is biphasic waveform with good flow velocity left dorsalis pedis artery suggestive of absence of significant inflow occlusion. DICTATED BY: JAMES HUITRON MD DATE: 09/20/2442 ELECTRONICALLY SIGNED BY: JAMES HUITRON MD DATE: 09/20/2401 [facility] [address] [place], [place] [id number] IMAGING REPORT Signed PATIENT: RODRIGUE RICHARD MR#: [id number] : 1975 SEX: M AGE: 49 LOCATION: [facility] ORDER 48 STATUS: ADM IN REPORT#: [id number] SERVICE 134 REASON: R/O ABSCESS ORDERING PHYSICIAN: LEVI DAIGLE PROCEDURE: LOW EXT WO - CT LOW EXT W/O CONTRAST CT LOW EXT W/O CONTRAST REASON: R/O ABSCESS COMPARISON: None TECHNIQUE: Images are obtained from distal femur through the tibiotalar joint in the axial plane. Sagittal and coronal reconstruction images were performed. Exam was performed without IV contrast. FINDINGS: There is extensive edema in the subcutaneous soft tissues. Underlying muscle bundles appears unremarkable. There are no discrete focal fluid collections to suggest a drainable abscess. There is no evidence of gas forming infection. The exam is somewhat limited by absence of IV contrast. Bones appear normal. There are no fractures and there is no evidence of osteomyelitis. IMPRESSION: 1. Extensive subcutaneous soft tissue swelling. 2. No focal abscess collection identified. DICTATED BY: JAMES HUITRON MD DATE: 09/20/24 0853 ELECTRONICALLY SIGNED BY: JAMES HUITRON MD DATE: 09/20/[address] [address] IMAGING REPORT Signed PATIENT: RODRIGUE RICHARD MR#: [id number] : 1975 SEX: M AGE: 49 [facility] ORDER 48 [facility]US: [facility]#: [id number] SERVICE 134 REASON: R/O DVT ORDERING PHYSICIAN: LEVI DAIGLE PROCEDURE: VENOUS LEE - US VENOUS DOPPLER BILATERAL US VENOUS DOPPLER BILATERAL CLINICAL HISTORY: Lower extremity edema COMPARISON: None FINDINGS: Bilateral lower extremity venous Doppler ultrasound was performed. The greater saphenous, common femoral, deep femoral, femoral , popliteal veins are widely patent and easily compressible with the ultrasound probe. Calf veins were not visualized nor was the distal right superficial femoral vein.. IMPRESSION: Limited study with no identified deep venous thrombosis in the visualized veins. DICTATED BY: MAYA MARIO DO DATE: 09/19/241713 ELECTRONICALLY SIGNED BY: MAYA MARIO DO DATE: 09/19/241718 [facility] [address] [place] [address] IMAGING REPORT Signed PATIENT: RODRIGUE RICHARD MR#: [id number] : 1975 SEX: M AGE: 49 LOCATION: [facility] ORDER 05 STATUS: ADM IN REPORT#: [id number] SERVICE 140 REASON: ABSCESS ORDERING PHYSICIAN: LEVI DAIGLE PROCEDURE: SOFT LOW E - US SOFT TISSUE LOWER EXTREMITY ULTRASOUND SOFT TISSUE LOWER EXTREMITY RIGHT INDICATION: Abscess evaluation. COMPARISON: None TECHNIQUE: Multiplanar sonographic images of the posterolateral right calf were obtained earlier in real-time using grayscale and color Doppler technique, and subsequently made available for review. FINDINGS/IMPRESSION: 10.3 cm long by 1.9 cm wide complex nonorganized nondrainable fluid collection demonstrated along the posterolateral right calf with surrounding hyperemia, but still suggesting evolving abscess. DICTATED BY: ISA ALTAMIRANO MD DATE: 09/19/241438 ELECTRONICALLY SIGNED BY: ISA ALTAMIRANO MD DATE: 09/19/24 1443 ASSESSMENT: Right lower extremity cellulitis with abscess, POA Morbid obesity, BMI 48.8 kg/M2 History of bilateral lower extremity lymphedema Hypertension Anemia Hypothyroidism PLAN:- The patient remains admitted on the medical surgical floor. Right lower extremity cellulitis with abscess, POA * Continue with IV antibiotic with cefepime and vancomycin per renal protocol * Per general surgery, the patient will be monitored for 24-48 hours for the improvement of the cellulitis and evolving abscess. If the patient's condition does not improve, surgical exploration with drainage will be performed. * Aerobic and anaerobic wound culture is pending. Follow up on the results are available. * Infectious Disease consult is pending. Follow up with the recommendations when available * Wound management consult is pending. Follow up with the recommendations when available * Continue with heart healthy diet. * Blood pressure medications were put on hold because of an episode of hypotension per documented vital signs. Medications will be resumed based on the vitals. * Home medications were resumed. * Continue with pain management * GI prophylaxis famotidine 20 mg p.o. b.i.d. daily * DVT prophylaxis with Lovenox 30 mg subQ daily A.m. labs: CBC, BMP ATTESTATION BY PHYSICIAN I have seen and examined the patient. I reviewed the documentation, medical decision making, and treatment plan as noted by the resident provider above. I agree with the findings and plan of care. Kaleigh Tobar MD, MANALI MD Sep 20, 2024 08:23
--- NOTE | 2024-09-20 08:48 | HMCIMG ---
US ARTERIAL BILAT LOW EXT DUPL REASON: PAD VS PVD COMPARISON: None TECHNIQUE: Bilateral lower extremity arterial Doppler was attempted. This was limited due to, particularly on the right, due to patient body habitus and a large amount of edema. FINDINGS: There is triphasic waveform in the right common femoral artery. There is elevated velocity in the proximal superficial femoral artery consistent with stenosis. Mid and distal SFA as well as the popliteal arteries were not visualized, posterior tibial and anterior tibial arteries also appear not well seen. There is triphasic flow present in the dorsalis pedis artery with preservation of flow velocity. Left leg shows triphasic waveforms present from common femoral artery through the popliteal artery, flow velocities are preserved. The posterior tibial and anterior tibial were not well visualized, there is biphasic waveform dorsalis pedis with a normal volume of flow. IMPRESSION: 1. Markedly limited exam with multiple vessels not well seen. 2. There is persistent triphasic waveform right dorsalis pedis artery suggesting absence of significant inflow occlusion. 3. There is biphasic waveform with good flow velocity left dorsalis pedis artery suggestive of absence of significant inflow occlusion.
--- NOTE | 2024-09-20 08:59 | HMCIMG ---
CT LOW EXT W/O CONTRAST REASON: R/O ABSCESS COMPARISON: None TECHNIQUE: Images are obtained from distal femur through the tibiotalar joint in the axial plane. Sagittal and coronal reconstruction images were performed. Exam was performed without IV contrast. FINDINGS: There is extensive edema in the subcutaneous soft tissues. Underlying muscle bundles appears unremarkable. There are no discrete focal fluid collections to suggest a drainable abscess. There is no evidence of gas forming infection. The exam is somewhat limited by absence of IV contrast. Bones appear normal. There are no fractures and there is no evidence of osteomyelitis. IMPRESSION: 1. Extensive subcutaneous soft tissue swelling. 2. No focal abscess collection identified.
[2024-09-20] MEDS ORDERED: PoTASSium chloRIDE 20MEQ/100ML 100 ML IV PRN (09:00)
[2024-09-20] MEDS ORDERED: PoTASSium chloRIDE 20MEQ ER 20 MEQ ERTAB PO PRN (09:00)
[2024-09-20] MEDS ORDERED: PoTASSium chl 10% ELIXIR 20MEQ 20 MEQ/15 ML UDCUP PO PRN (09:00)
[2024-09-20] MEDS: TIMOLOL MALEATE OS SCH (09:00)
[2024-09-20] MEDS: buPROPion HCL 150 MG TABLET.SA PO SCH (10:31)
--- NOTE | 2024-09-20 13:30 | NUR ---
[facility] Consult: Patient assessed by wound healing team. See wound assessment. Assessment and recommendations provided to primary nurse. Education provided. Wound care done. Addendum: 09/20/24 at 1552 by GROVER HI RN RN/ Amended: Links added.
--- NOTE | 2024-09-20 14:00 | NUR ---
NURSE NOTE vancomycin late, was pending pharmacy to prepare and bring.
--- NOTE | 2024-09-20 14:19 | NUR ---
DCP Pt awake, alert in bed. Mother Amina Tan [phone] at bedside, Pt and mother Amina Tan are [place]. PCP is Nanette Puckett. Pt has a cane, walker, able to perform ADLs. Anticipates discharge is for home. Addendum: 09/20/24 at 1422 by THUY MACEDO RN CM Amended: Links added.
--- NOTE | 2024-09-20 15:55 | CONS ---
CONSULTATION NOTE Date of Service: Sep 20, 2024 Reason for Consultation: [ Right lower extremity cellulitis with evolving abscess ] Requesting Physician: [ Hospitalist ] HISTORY OF PRESENT ILLNESS: [ 09/20/24 49 yo male presents to ED for right lower extremity redness with greenish wound drainage and pain. As per Dr. Lopez, patient will be monitored for evolving abscess. If condition does not improve, exploration with drainage performed. Wound care consulted for right lower extremity cellulitis with abscesses. Pt seen at bedside. Primary nurse Neci at visit. Family present during visit. ] REVIEW OF SYSTEMS CONSTITUTIONAL: Denies fever, chills, or fatigue. HEAD/FACE: No signs of trauma. EENT: Denies eye pain, blurred vision, double vision, or light sensitivity. RESPIRATORY: Denies shortness of breath, cough, wheezing CARDIOVASCULAR: Denies chest pain, palpitation, syncope GASTROINTESTINAL/ABDOMINAL: Denies abdominal pain, constipation, diarrhea, nausea or vomiting GENITOURINARY: Denies dysuria or hematuria. MUSCULOSKELETAL: Denies joint pain, tenderness, or trauma. INTEGUMENTARY: Denies rash or itchiness ; Right lower extremity redness with abscess, pain NEUROLOGICAL/PSYCH: Denies anxiety, depression, heat or cold intolerance. PAST MEDICAL HISTORY: [ Asthma, HTN, bilateral lymphedema, anemia, hypothyroidism ] PAST SURGICAL HISTORY: [ Cholecystectomy, bilateral knees] PAST SOCIAL HISTORY: [Negative ] FAMILY HISTORY: [ Noncontributory ] Coded Allergies: No Known Drug Allergies (Verified Allergy, 10/08/13) PHYSICAL EXAM EYES: Anicteric. Pupils equal and reactive. HENT: No oral thrush seen, moist Oral mucosa NECK: Supple, no JVD or thyromegaly. LUNGS: Good air entry. No rales, no rhonchi. CARDIOVASCULAR: S1, S2 regular. No murmur heard. ABDOMEN: Soft, non tender, bowel sounds present, no organomegaly CENTRAL NERVOUS SYSTEM: Awake, alert, oriented x 3. No focal deficits. SKIN: No rashes, no swelling. LYMPHATICS: No peripheral lymphadenopathy MUSCULOSKELETAL: No joint swelling, erythema or tenderness. EXTREMITIES: No cyanosis or clubbing; Right lower extremity slight erythema, abscess with several small openings, minimal drainage BACK: No deformity, no pressure ulcer. GENITOURINARY: No dysuria or hematuria Vital Sign (Last 24 Hours) 09/20/24 09/20/24 08:00 12:00 Temp 97.5 Pulse 78 Resp 20 B/P (MAP) 156/77 Pulse Ox 98 O2 Delivery Room Air O2 Flow Rate 0 FiO2 21 Intake & Output (last 24hrs) 09/19/24 09/19/24 09/20/24 15:00 23:00 07:00 Intake Total 600 ml Output Total 1050 ml Balance -450 ml LABS: Laboratory: Test 09/20/24 04:11 09/19/24 11:03 Range/Units White Blood Count 7.9 4.8-10.8 K/uL Red Blood Count 4.07 L 4.50-6.20 MIL/uL Hemoglobin 9.9 L 14.0-18.0 g/dL Hematocrit 31.8 L 42-54 % Mean Corpuscular Volume 78.1 L 79-99 fL Mean Corpuscular Hemoglobin 24.3 L 27.0-33.0 pg Mean Corpuscular Hemoglobin Concent 31.1 L 32.0-36.0 g/dL Red Cell Distribution Width 15.0 11.0-15.5 % Platelet Count 469 H 130-400 K/uL Mean Platelet Volume 8.5 7.5-10.5 fL Immature Granulocyte % (Auto) 0.9 0-1 % Neutrophils (%) (Auto) 66.0 40.0-77.0 % Lymphocytes (%) (Auto) 17.8 L 21.0-51.0 % Monocytes (%) (Auto) 12.1 3.0-13.0 % Eosinophils (%) (Auto) 2.7 0.0-8.0 % Basophils (%) (Auto) 0.5 0.0-5.0 % Neutrophils # (Auto) 5.2 1.8-7.7 K/uL Lymphocytes # (Auto) 1.4 1.0-4.8 K/uL Monocytes # (Auto) 1.0 0.1-1.0 K/uL Eosinophils # (Auto) 0.21 0.00-0.70 K/uL Basophils # (Auto) 0.04 0.00-0.20 K/uL Absolute Immature Granulocyte (auto 0.07 0-1 K/uL Nucleated Red Blood Cells 0.0 0.0-0.19 % Sodium Level 144 136-145 mmol/L Potassium Level 3.3 L 3.5-5.1 mmol/L Chloride Level 107 101-111 mmol/L Carbon Dioxide Level 27 21-32 mmol/L Blood Urea Nitrogen 14 7-18 mg/dL Creatinine 1.2 0.5-1.3 mg/dL Glomerular Filtration Rate Calc 74 >90 mL/min Random Glucose 106 H 70-105 mg/dL Total Calcium 8.6 8.5-10.1 mg/dL Total Bilirubin 0.3 0.2-1.0 mg/dL Aspartate Amino Transf (AST/SGOT) 19 10-37 U/L Alanine Aminotransferase (ALT/SGPT) 21 12-78 U/L Alkaline Phosphatase 132 50-136 U/L Total Protein 6.6 6.0-8.3 g/dL Albumin 2.1 L 3.5-5.0 g/dL Red Blood Cell Morphology See comments Hemoglobin A1c 5.5 4.0-6.0 % Estimated Average Glucose (eAG) 111 70-126 mg/dL Lactic Acid Level 1.8 0.8-2.5 mmol/L Triglycerides Level 65 30-200 mg/dL Cholesterol Level 123 <200 mg/dL LDL Cholesterol 67 0-99 mg/dL HDL Cholesterol 43 29-71 mg/dL Procalcitonin 0.10 0.05-0.5 ng/mL DIAGNOSTICS / RADIOLOGY: [ ] PROBLEM LIST : Medical Problems: (1) Cellulitis, leg ICD Codes: L03.119 - Cellulitis of unspecified part of limb (2) Leg abscess ICD Codes: L02.419 - Cutaneous abscess of limb, unspecified PLAN: [ Anicep to abscesses Continue IV medications ] SHELLIE SUMMERS Sep 20, 2024 15:55
[2024-09-20] MEDS: FERROUS SULFATE 325 MG TABLET.DR PO SCH (20:03)
[2024-09-21] VITALS (8 sets, daily range): BP systolic 146–187; BP diastolic 82–103; PULSE 75–86; RESP 17–21; TEMP 97.5–98.7; O2SAT 96–97
[2024-09-21 05:20] LABS: BASOPHILS # (AUTO) 0.05 K/uL (0.00-0.20); BASOPHILS % (AUTO) 0.6 % (0.0-5.0); EOSINOPHILS # (AUTO) 0.24 K/uL (0.00-0.70); EOSINOPHILS % (AUTO) 2.9 % (0.0-8.0); HEMATOCRIT 33.6 % (42-54); IMMATURE GRANULOCYTE ABSOLUTE 0.09 K/uL (0-1); LYMPHOCYTES # (AUTO) 1.4 K/uL (1.0-4.8); LYMPHOCYTES % (AUTO) 17.6 % (21.0-51.0); MEAN CORPUSCULAR HGB CONC 30.1 g/dL (32.0-36.0); MEAN CORPUSCULAR VOLUME 79.8 fL (79-99); MONOCYTES # (AUTO) 1.1 K/uL (0.1-1.0); MONOCYTES % (AUTO) 13.1 % (3.0-13.0); NEUTROPHILS # (AUTO) 5.3 K/uL (1.8-7.7); NEUTROPHILS % (AUTO) 64.7 % (40.0-77.0); PLATELET COUNT (AUTO) 385 K/uL (130-400); RED BLOOD CELL COUNT(AUTO) 4.21 MIL/uL (4.50-6.20); RED CELL DISTRIBUTION WIDTH 14.8 % (11.0-15.5); WHITE BLOOD COUNT (AUTO) 8.2 K/uL (4.8-10.8)
[2024-09-21 05:32] LABS: CREATININE 1.1 mg/dL (0.5-1.3); POTASSIUM 3.7 mmol/L (3.5-5.1)
[2024-09-21] MEDS: levoTHYROxine 25 MCG TABLET PO SCH (05:49)
[2024-09-21] MEDS: LoSARTan 100 MG TABLET PO SCH (08:19)
[2024-09-21] MEDS: furoSEMIDE 40 MG TABLET PO SCH (08:20)
--- NOTE | 2024-09-21 09:58 | PN ---
[facility] PROGRESS NOTE Date of Service: Sep 21, 2024 Time of Service: 09:58 SUBJECTIVE: The patient is a 49-year-old male with a past medical history of bilateral lower limb lymphedema, hypertension, anemia, hypothyroidism presented to ED yesterday with a chief complaint of right lower extremity calf redness, greenish wound discharge and pain. It started with a small boil 3 days ago and became progressively worsened started draining yesterday. In the emergency department, serosanguineous discharge was noted. Labs were nonsignificant. He was started on cefepime and vancomycin. Ultrasound soft tissue lower extremity showed 10.3 cm long and 1.9 cm wide non drainable fluid collection on the posterolateral right calf with surrounding hyperemia, evolving abscess. He was admitted to [facility] on medical surgical floor for the management of right lower extremity cellulitis with abscess. 09/20/2024- patient was examined at bedside, lying comfortably, not in acute distress. The patient has a dressing over the draining abscess. No any acute overnight episodes, running slightly hypertensive. Labs: Hemoglobin 9.9, thrombocytosis with platelets 469, potassium 3.3, hemoglobin A1c 5.5. Per Dr. Lopez, the patient will be monitored for 24-48 hours for evolving abscess. If the condition not improve, exploration with drainage will be performed. ID recommendations are pending REVIEW OF SYSTEMS CONSTITUTIONAL: Denies fevers, chills, or night sweats. No unintentional weight loss reported. NEUROLOGICAL: Denies headache, amaurosis fugax, motor weakness, sensory deficit, vertigo/spinning sensation, gait abnormalities, or tremors. ENT: No hearing loss, otalgia, otorrhea, rhinitis, rhinorrhea, hoarseness, or sore throat. CARDIOVASCULAR: Denies any exertional angina, dyspnea on exertion, orthopnea, paroxysmal nocturnal dyspnea, palpitations, life-threatening arrhythmias, claudication. PULMONARY: Denies any shortness of breath, cough, phlegm/sputum, hemoptysis, pleuritic chest pain. SLEEP: Denies morning headaches, daytime somnolence or napping. Denies difficulty falling asleep, staying asleep, waking from sleep. Denies knowledge of snoring. GASTROINTESTINAL: Denies any type of dysphagia to either liquids or solids. Denies nausea, vomiting, pyrosis, early satiety, abdominal pain, diarrhea, constipation, or changes in stool consistency or caliber. Denies coffee-ground emesis, hematemesis, hematochezia, or melanotic stools. GENITOURINARY: Denies frequency, urgency, nocturia, hematuria or incontinence (Storage/Irritative symptoms.) Low urinary stream, straining to void, urinary intermittency or hesitancy, splitting of the voiding stream, terminal dribbling. ENDOCRINOLOGIC: Denies polyuria, polydipsia, polyphagia or heat/cold intolerances. HEMATOLOGIC: Denies thrombophilia/previous clots, or coagulopathy/bleeding disorders. ONCOLOGIC: Denies personal history of malignancy. DERMATOLOGIC: Reports redness to right LE, with pus noted, bilateral lymphedema noted PSYCHIATRIC: Denies any suicidal or homicidal ideation. Denies hallucinations. PHYSICAL EXAM GENERAL APPEARANCE: The patient is awake, alert, and oriented, in no acute cardiopulmonary distress. NEUROLOGICAL: Cranial nerves II-XII grossly intact. Motor is 5/5 in bilateral upper and lower extremities proximal to distal. No sensory deficits. HEENT: Face is symmetric. Pupils are equal and reactive. Extraocular movements are intact. NECK: Supple. No JVD. No thyromegaly. No submental, submandibular, pre- /postauricular, occipital or supraclavicular lymphadenopathy. CHEST: Normal chest expansion. No Telemetry. LUNGS: Absence of any rales, rhonchi or any wheezing. CARDIOVASCULAR: Regular. S1 and S2 normal. No appreciable rubs, murmurs or gallops. ABDOMEN: Soft, nontender, and nondistended. There is no rebound, voluntary guarding, or rigidity. : Deferred. No Bennett. EXTREMITIES: BLE lymphedema with right LE drainage noted SKIN: Lymphedema, RLE wound Vital Signs (last 8hr) Date Time Temp Pulse Resp B/P (MAP) Pulse Ox O2 Delivery O2 Flow Rate FiO2 09/21/24 08:00 98.8 76 20 155/89 96 Room Air 21 09/21/24 05:12 97.5 86 20 182/94 95 Room Air LABS: Laboratory: Test 09/21/24 04:52 09/20/24 04:11 09/19/24 11:03 Range/Units White Blood Count 8.2 4.8-10.8 K/uL Red Blood Count 4.21 L 4.50-6.20 MIL/uL Hemoglobin 10.1 L 14.0-18.0 g/dL Hematocrit 33.6 L 42-54 % Mean Corpuscular Volume 79.8 79-99 fL Mean Corpuscular Hemoglobin 24.0 L 27.0-33.0 pg Mean Corpuscular Hemoglobin Concent 30.1 L 32.0-36.0 g/dL Red Cell Distribution Width 14.8 11.0-15.5 % Platelet Count 385 130-400 K/uL Mean Platelet Volume 8.3 7.5-10.5 fL Immature Granulocyte % (Auto) 1.1 H 0-1 % Neutrophils (%) (Auto) 64.7 40.0-77.0 % Lymphocytes (%) (Auto) 17.6 L 21.0-51.0 % Monocytes (%) (Auto) 13.1 H 3.0-13.0 % Eosinophils (%) (Auto) 2.9 0.0-8.0 % Basophils (%) (Auto) 0.6 0.0-5.0 % Neutrophils # (Auto) 5.3 1.8-7.7 K/uL Lymphocytes # (Auto) 1.4 1.0-4.8 K/uL Monocytes # (Auto) 1.1 H 0.1-1.0 K/uL Eosinophils # (Auto) 0.24 0.00-0.70 K/uL Basophils # (Auto) 0.05 0.00-0.20 K/uL Absolute Immature Granulocyte (auto 0.09 0-1 K/uL Nucleated Red Blood Cells 0.0 0.0-0.19 % Sodium Level 142 136-145 mmol/L Potassium Level 3.7 3.5-5.1 mmol/L Chloride Level 107 101-111 mmol/L Carbon Dioxide Level 27 21-32 mmol/L Blood Urea Nitrogen 11 7-18 mg/dL Creatinine 1.1 0.5-1.3 mg/dL Glomerular Filtration Rate Calc 82 >90 mL/min Random Glucose 97 70-105 mg/dL Total Calcium 9.0 8.5-10.1 mg/dL Total Bilirubin 0.3 0.2-1.0 mg/dL Aspartate Amino Transf (AST/SGOT) 19 10-37 U/L Alanine Aminotransferase (ALT/SGPT) 21 12-78 U/L Alkaline Phosphatase 132 50-136 U/L Total Protein 6.6 6.0-8.3 g/dL Albumin 2.1 L 3.5-5.0 g/dL Red Blood Cell Morphology See comments Hemoglobin A1c 5.5 4.0-6.0 % Estimated Average Glucose (eAG) 111 70-126 mg/dL Lactic Acid Level 1.8 0.8-2.5 mmol/L Triglycerides Level 65 30-200 mg/dL Cholesterol Level 123 <200 mg/dL LDL Cholesterol 67 0-99 mg/dL HDL Cholesterol 43 29-71 mg/dL Procalcitonin 0.10 0.05-0.5 ng/mL Current Medications Medications (Trade) Dose Ordered Sig/Enio Route PRN Reason Start Time Stop Time Status Last Admin Dose Admin Acetaminophen (TYLenol 500MG TAB) 500 mg Q6H PRN PO MILD PAIN (1-3) 09/19/24 14:00 10/19/24 13:59 Bupropion HCl (WellBUTrin SR 150MG) 300 mg DAILY PO 09/20/24 09:00 10/20/24 08:59 09/21/24 08:19 300 MG Cefepime HCl (MAXipime 1 GM vial) 1 gm ONCE IVPB 09/19/24 11:00 09/19/24 10:54 DC Cefepime HCl (MAXipime 2 gm vial) 2 gm Q8H IVPB 09/19/24 14:00 09/19/24 14:08 DC Cefepime HCl (MAXipime 2 gm vial) 2 gm Q8H IVPB 09/19/24 19:00 09/29/24 18:59 09/21/24 03:59 2 GM Enoxaparin Sodium (Lovenox (Pharmacy To Dose)) 1 unit Q24H SQ 09/19/24 14:00 09/19/24 14:02 DC Enoxaparin Sodium (Lovenox) 40 mg BID SQ 09/19/24 21:00 10/19/24 20:59 09/21/24 08:19 40 MG Famotidine (Pepcid 20mg Tab) 20 mg BID PO 09/19/24 21:00 10/19/24 20:59 09/21/24 08:20 20 MG Ferrous Sulfate (Ferrous Sulfate) 325 mg HS PO 09/20/24 21:00 10/20/24 20:59 09/20/24 20:03 325 MG Furosemide (LASix 40MG TAB) 40 mg DAILY PO 09/21/24 09:00 10/21/24 08:59 09/21/24 08:20 40 MG Home Med (Home Medication) (Timolol Maleate 1 DROP) DAILY OS 09/20/24 09:00 10/20/24 08:59 Levothyroxine Sodium (SYNTHroid 25MCG TAB) 25 mcg SYN PO 09/21/24 06:30 10/21/24 06:29 09/21/24 05:49 25 MCG Losartan Potassium (CozAAR 100MG TAB) 100 mg DAILY PO 09/21/24 09:00 10/21/24 08:59 09/21/24 08:19 100 MG Morphine Sulfate (morPHINE 2MG SYG) 2 mg Q4H PRN IVP SEVERE PAIN (7-10) 09/19/24 14:00 09/26/24 13:59 Ondansetron HCl (zoFRAN 4MG INJ) 4 mg Q6H PRN IVP NAUSEA/VOMITING 09/19/24 14:00 10/19/24 13:59 Potassium Chloride 100 ml @ 100 mls/hr AD PRN IV POTASSIUM PROTOCOL 09/20/24 09:00 10/20/24 08:59 Potassium Chloride (K-Dur/Klor-Con 20meq) 20 meq AD PRN PO POTASSIUM PROTOCOL 09/20/24 09:00 10/20/24 08:59 Potassium Chloride (KCl 10% Elixir 20meq/15ml) 20 meq AD PRN PO POTASSIUM PROTOCOL 09/20/24 09:00 10/20/24 08:59 Vancomycin HCl 250 ml @ 125 mls/hr Q12H IV 09/19/24 23:00 09/29/24 22:59 09/20/24 22:56 125 MLS/HR Vancomycin HCl (Vancomycin Protocol) 1 each AD IV 09/19/24 14:00 10/03/24 13:59 DIAGNOSTICS / RADIOLOGY: [ ] ASSESSMENT: Right lower extremity cellulitis with abscess, POA Morbid obesity, BMI 48.8 kg/M2 History of bilateral lower extremity lymphedema Hypertension Anemia Hypothyroidism PLAN:- The patient remains admitted on the medical surgical floor. Right lower extremity cellulitis with abscess, POA * Continue with IV antibiotic with cefepime and vancomycin per renal protocol * Per general surgery, the patient will be monitored for 24-48 hours for the improvement of the cellulitis and evolving abscess. If the patient's condition does not improve, surgical exploration with drainage will be performed. * Aerobic and anaerobic wound culture is pending. Follow up on the results are available. * Infectious Disease consult is pending. Follow up with the recommendations when available * Wound management consult is pending. Follow up with the recommendations when available * Continue with heart healthy diet. * Blood pressure medications were put on hold because of an episode of hypotension per documented vital signs. Medications will be resumed based on the vitals. * Home medications were resumed. * Continue with pain management * GI prophylaxis famotidine 20 mg p.o. b.i.d. daily * DVT prophylaxis with Lovenox 30 mg subQ daily A.m. labs: CBC, BMP KANDIS ALTAMIRANO MD Sep 21, 2024 09:58
--- NOTE | 2024-09-21 10:57 | PN ---
This is a 49-year-old male with severe right lower extremity lymphedema Interval history: This 49-year-old male seen in his room resting Patient is started back on home medications yesterday with significant improvement of if lift and D with to right lower extremity Less drainage noted Significant regression of erythema from borders marked Labs and vitals unremarkable Physical exam General: Awake alert and oriented Heart: Regular rate and rhythm} Lungs: [Clear to auscultation no distress Abdomen: [Soft, nontender, nondistended significantly less edema noted Assessment : This is a 49-year-old male with severe right lower extremity lymphedema with concerns of potential abscess ruled out on imaging Plan: No immediate surgical intervention planned at this time Dr. Chen updated on patient's status Continue with conservative management Surgery team to be reconsulted if any surgical issues present For now we will sign off patient will continue with current medical management. Thank you Vitals/Labs Vital Signs Date Time Temp Pulse Resp B/P (MAP) Pulse Ox O2 Delivery O2 Flow Rate FiO2 09/21/24 08:00 98.8 76 20 155/89 96 Room Air 21 09/20/24 20:00 0 Laboratory Tests 09/21/24 04:52 Medications Current Medications Vancomycin HCl 1 gm ONCE ONCE IV Last administered on 09/19/24at 11:32; Start 09/19/24 at 11:00; Stop 09/19/24 at 11:01; Status DC Cefepime HCl 1 gm ONCE IVPB; Start 09/19/24 at 11:00; Stop 09/19/24 at 10:54; Status DC Cefepime HCl 1 gm ONCE ONCE IVPB Last administered on 09/19/24at 11:06; Start 09/19/24 at 11:00; Stop 09/19/24 at 11:01; Status DC Cefepime HCl 2 gm Q8H IVPB; Start 09/19/24 at 14:00; Stop 09/19/24 at 14:08; Status DC Vancomycin HCl 1 each AD IV; Start 09/19/24 at 14:00; Stop 10/03/24 at 13:59 Acetaminophen 500 mg Q6H PRN PO; Start 09/19/24 at 14:00; Stop 10/19/24 at 13:59 Ondansetron HCl 4 mg Q6H PRN IVP; Start 09/19/24 at 14:00; Stop 10/19/24 at 13:59 Morphine Sulfate 2 mg Q4H PRN IVP; Start 09/19/24 at 14:00; Stop 09/26/24 at 13:59 Famotidine 20 mg BID PO Last administered on 09/21/24at 08:20; Start 09/19/24 at 21:00; Stop 10/19/24 at 20:59 Enoxaparin Sodium 1 unit Q24H SQ; Start 09/19/24 at 14:00; Stop 09/19/24 at 14:02; Status DC Vancomycin HCl 250 ml @ 125 mls/hr Q12H IV Last administered on 09/20/24at 22:56; Start 09/19/24 at 23:00; Stop 09/21/24 at 10:45; Status DC Enoxaparin Sodium 40 mg BID SQ Last administered on 09/21/24at 08:19; Start 09/19/24 at 21:00; Stop 10/19/24 at 20:59 Cefepime HCl 2 gm Q8H IVPB Last administered on 09/21/24at 03:59; Start 09/19/24 at 19:00; Stop 09/29/24 at 18:59 Potassium Chloride 40 meq ONCE ONCE PO Last administered on 09/20/24at 06:21; Start 09/20/24 at 06:30; Stop 09/20/24 at 06:31; Status DC Bupropion HCl 300 mg DAILY PO Last administered on 09/21/24at 08:19; Start 09/20/24 at 09:00; Stop 10/20/24 at 08:59 Ferrous Sulfate 325 mg HS PO Last administered on 09/20/24at 20:03; Start 09/20/24 at 21:00; Stop 10/20/24 at 20:59 Levothyroxine Sodium 25 mcg SYN PO Last administered on 09/21/24at 05:49; Start 09/21/24 at 06:30; Stop 10/21/24 at 06:29 Home Med (Timolol Maleate 1 DROP) DAILY OS; Start 09/20/24 at 09:00; Stop 10/20/24 at 08:59 Potassium Chloride 100 ml @ 100 mls/hr AD PRN IV; Start 09/20/24 at 09:00; Stop 10/20/24 at 08:59 Potassium Chloride 20 meq AD PRN PO; Start 09/20/24 at 09:00; Stop 10/20/24 at 08:59 Potassium Chloride 20 meq AD PRN PO; Start 09/20/24 at 09:00; Stop 10/20/24 at 08:59 Furosemide 40 mg DAILY PO Last administered on 09/21/24at 08:20; Start 09/21/24 at 09:00; Stop 10/21/24 at 08:59 Losartan Potassium 100 mg DAILY PO Last administered on 09/21/24at 08:19; Start 09/21/24 at 09:00; Stop 10/21/24 at 08:59 THEODORE SONI Jr. Sep 21, 2024 10:57
--- NOTE | 2024-09-21 10:57 | PN ---
Date of service 11/18/2024, unable to dictate yesterday due to system being down Interval history: This 49-year-old male seen in his room resting Patient reports significant improvement of swelling to lower extremity. Minor seeping concerning site on the leg No extension of erythema from borders marked yesterday No fluctuance present palpation No abscesses seen on imaging White count and vitals unremarkable Physical exam General: Awake alert and oriented Heart: Regular rate and rhythm} Lungs: Clear to auscultation no distress Abdomen: Soft, nontender, nondistended Right lower extremity with continued edema no fluctuance and minor seeping Assessment : This is a 49-year-old male with severe right lower extremity lymphedema with concerns of potential abscess ruled out on imaging Plan: Patient to start back on home meds Possible repeat imaging in the next several days Continue to monitor progression of erythema No immediate surgical intervention planned at this time Vitals/Labs Vital Signs Date Time Temp Pulse Resp B/P (MAP) Pulse Ox O2 Delivery O2 Flow Rate FiO2 09/21/24 08:00 98.8 76 20 155/89 96 Room Air 21 09/20/24 20:00 0 Laboratory Tests 09/21/24 04:52 Medications Current Medications Vancomycin HCl 1 gm ONCE ONCE IV Last administered on 09/19/24at 11:32; Start 09/19/24 at 11:00; Stop 09/19/24 at 11:01; Status DC Cefepime HCl 1 gm ONCE IVPB; Start 09/19/24 at 11:00; Stop 09/19/24 at 10:54; Status DC Cefepime HCl 1 gm ONCE ONCE IVPB Last administered on 09/19/24at 11:06; Start 09/19/24 at 11:00; Stop 09/19/24 at 11:01; Status DC Cefepime HCl 2 gm Q8H IVPB; Start 09/19/24 at 14:00; Stop 09/19/24 at 14:08; Status DC Vancomycin HCl 1 each AD IV; Start 09/19/24 at 14:00; Stop 10/03/24 at 13:59 Acetaminophen 500 mg Q6H PRN PO; Start 09/19/24 at 14:00; Stop 10/19/24 at 13:59 Ondansetron HCl 4 mg Q6H PRN IVP; Start 09/19/24 at 14:00; Stop 10/19/24 at 13:59 Morphine Sulfate 2 mg Q4H PRN IVP; Start 09/19/24 at 14:00; Stop 09/26/24 at 13:59 Famotidine 20 mg BID PO Last administered on 09/21/24at 08:20; Start 09/19/24 at 21:00; Stop 10/19/24 at 20:59 Enoxaparin Sodium 1 unit Q24H SQ; Start 09/19/24 at 14:00; Stop 09/19/24 at 14:02; Status DC Vancomycin HCl 250 ml @ 125 mls/hr Q12H IV Last administered on 09/20/24at 22:56; Start 09/19/24 at 23:00; Stop 09/21/24 at 10:45; Status DC Enoxaparin Sodium 40 mg BID SQ Last administered on 09/21/24at 08:19; Start 09/19/24 at 21:00; Stop 10/19/24 at 20:59 Cefepime HCl 2 gm Q8H IVPB Last administered on 09/21/24at 03:59; Start 09/19/24 at 19:00; Stop 09/29/24 at 18:59 Potassium Chloride 40 meq ONCE ONCE PO Last administered on 09/20/24at 06:21; Start 09/20/24 at 06:30; Stop 09/20/24 at 06:31; Status DC Bupropion HCl 300 mg DAILY PO Last administered on 09/21/24at 08:19; Start 09/20/24 at 09:00; Stop 10/20/24 at 08:59 Ferrous Sulfate 325 mg HS PO Last administered on 09/20/24at 20:03; Start 09/20/24 at 21:00; Stop 10/20/24 at 20:59 Levothyroxine Sodium 25 mcg SYN PO Last administered on 09/21/24at 05:49; Start 09/21/24 at 06:30; Stop 10/21/24 at 06:29 Home Med (Timolol Maleate 1 DROP) DAILY OS; Start 09/20/24 at 09:00; Stop 10/20/24 at 08:59 Potassium Chloride 100 ml @ 100 mls/hr AD PRN IV; Start 09/20/24 at 09:00; Stop 10/20/24 at 08:59 Potassium Chloride 20 meq AD PRN PO; Start 09/20/24 at 09:00; Stop 10/20/24 at 08:59 Potassium Chloride 20 meq AD PRN PO; Start 09/20/24 at 09:00; Stop 10/20/24 at 08:59 Furosemide 40 mg DAILY PO Last administered on 09/21/24at 08:20; Start 09/21/24 at 09:00; Stop 10/21/24 at 08:59 Losartan Potassium 100 mg DAILY PO Last administered on 09/21/24at 08:19; Start 09/21/24 at 09:00; Stop 10/21/24 at 08:59 THEODORE SONI Jr. Sep 21, 2024 10:57
[2024-09-21] MEDS: VANCOMYCIN 1.25 GM/250 ML BAG 250 ML IV SCH (12:39)
--- NOTE | 2024-09-21 15:15 | PN ---
[facility] PROGRESS NOTE Date of Service: Sep 21, 2024 Time of Service: 15:06 SUBJECTIVE: The patient is a 49-year-old male with a past medical history of bilateral lower limb lymphedema, hypertension, anemia, hypothyroidism presented to ED yesterday with a chief complaint of right lower extremity calf redness, greenish wound discharge and pain. It started with a small boil 3 days ago and became progressively worsened started draining yesterday. In the emergency department, serosanguineous discharge was noted. Labs were nonsignificant. He was started on cefepime and vancomycin. Ultrasound soft tissue lower extremity showed 10.3 cm long and 1.9 cm wide non drainable fluid collection on the posterolateral right calf with surrounding hyperemia, evolving abscess. He was admitted to [facility] on medical surgical floor for the management of right lower extremity cellulitis with abscess. 09/20/2024- patient was examined at bedside, lying comfortably, not in acute distress. The patient has a dressing over the draining abscess. No any acute overnight episodes, running slightly hypertensive. Labs: Hemoglobin 9.9, thrombocytosis with platelets 469, potassium 3.3, hemoglobin A1c 5.5. Per Dr. Lopez, the patient will be monitored for 24-48 hours for evolving abscess. If the condition not improve, exploration with drainage will be performed. ID recommendations are pending. 09/21/24- The patient was examined today at bedside, lying comfortably, not in acute distress. The abscess has significantly drained and appears to be improved. He has been running hypertensive with SBP in 150s and 160s. Home medications were resumed, we will closely monitor vitals. No any acute overnight episodes were noted. Per Surgery, no surgical intervention. We will continue with IV antibiotics Cefepime and Vancomycin today. REVIEW OF SYSTEMS CONSTITUTIONAL: Denies fevers, chills, or night sweats. No unintentional weight loss reported. NEUROLOGICAL: Denies headache, amaurosis fugax, motor weakness, sensory deficit, vertigo/spinning sensation, gait abnormalities, or tremors. ENT: No hearing loss, otalgia, otorrhea, rhinitis, rhinorrhea, hoarseness, or sore throat. CARDIOVASCULAR: Denies any exertional angina, dyspnea on exertion, orthopnea, paroxysmal nocturnal dyspnea, palpitations, life-threatening arrhythmias, claudication. PULMONARY: Denies any shortness of breath, cough, phlegm/sputum, hemoptysis, pleuritic chest pain. SLEEP: Denies morning headaches, daytime somnolence or napping. Denies difficulty falling asleep, staying asleep, waking from sleep. Denies knowledge of snoring. GASTROINTESTINAL: Denies any type of dysphagia to either liquids or solids. Denies nausea, vomiting, pyrosis, early satiety, abdominal pain, diarrhea, constipation, or changes in stool consistency or caliber. Denies coffee-ground emesis, hematemesis, hematochezia, or melanotic stools. GENITOURINARY: Denies frequency, urgency, nocturia, hematuria or incontinence (Storage/Irritative symptoms.) Low urinary stream, straining to void, urinary intermittency or hesitancy, splitting of the voiding stream, terminal dribbling. ENDOCRINOLOGIC: Denies polyuria, polydipsia, polyphagia or heat/cold intolerances. HEMATOLOGIC: Denies thrombophilia/previous clots, or coagulopathy/bleeding disorders. ONCOLOGIC: Denies personal history of malignancy. DERMATOLOGIC: Reports redness to right LE, with pus noted, bilateral lymphedema noted PSYCHIATRIC: Denies any suicidal or homicidal ideation. Denies hallucinations. PHYSICAL EXAM GENERAL APPEARANCE: The patient is awake, alert, and oriented, in no acute cardiopulmonary distress. NEUROLOGICAL: Cranial nerves II-XII grossly intact. Motor is 5/5 in bilateral upper and lower extremities proximal to distal. No sensory deficits. HEENT: Face is symmetric. Pupils are equal and reactive. Extraocular movements are intact. NECK: Supple. No JVD. No thyromegaly. No submental, submandibular, pre- /postauricular, occipital or supraclavicular lymphadenopathy. CHEST: Normal chest expansion. No Telemetry. LUNGS: Absence of any rales, rhonchi or any wheezing. CARDIOVASCULAR: Regular. S1 and S2 normal. No appreciable rubs, murmurs or gallops. ABDOMEN: Soft, nontender, and nondistended. There is no rebound, voluntary guarding, or rigidity. : Deferred. No Bennett. EXTREMITIES: BLE lymphedema with right LE drainage noted SKIN: Lymphedema, RLE wound Vital Signs (last 8hr) Date Time Temp Pulse Resp B/P (MAP) Pulse Ox O2 Delivery O2 Flow Rate FiO2 09/21/24 12:00 82 146/82 1/3/25 11:50 98.2 75 18 187/103 98 Room Air 21 09/21/24 08:00 98.8 76 20 155/89 96 Room Air 21 09/21/24 08:00 96 Room Air* 0 21 LABS: Laboratory: Test 09/21/24 10:05 09/21/24 04:52 09/20/24 04:11 Range/Units Vancomycin Level Trough 19.6 10.0-20.0 UG/ML White Blood Count 8.2 4.8-10.8 K/uL Red Blood Count 4.21 L 4.50-6.20 MIL/uL Hemoglobin 10.1 L 14.0-18.0 g/dL Hematocrit 33.6 L 42-54 % Mean Corpuscular Volume 79.8 79-99 fL Mean Corpuscular Hemoglobin 24.0 L 27.0-33.0 pg Mean Corpuscular Hemoglobin Concent 30.1 L 32.0-36.0 g/dL Red Cell Distribution Width 14.8 11.0-15.5 % Platelet Count 385 130-400 K/uL Mean Platelet Volume 8.3 7.5-10.5 fL Immature Granulocyte % (Auto) 1.1 H 0-1 % Neutrophils (%) (Auto) 64.7 40.0-77.0 % Lymphocytes (%) (Auto) 17.6 L 21.0-51.0 % Monocytes (%) (Auto) 13.1 H 3.0-13.0 % Eosinophils (%) (Auto) 2.9 0.0-8.0 % Basophils (%) (Auto) 0.6 0.0-5.0 % Neutrophils # (Auto) 5.3 1.8-7.7 K/uL Lymphocytes # (Auto) 1.4 1.0-4.8 K/uL Monocytes # (Auto) 1.1 H 0.1-1.0 K/uL Eosinophils # (Auto) 0.24 0.00-0.70 K/uL Basophils # (Auto) 0.05 0.00-0.20 K/uL Absolute Immature Granulocyte (auto 0.09 0-1 K/uL Nucleated Red Blood Cells 0.0 0.0-0.19 % Sodium Level 142 136-145 mmol/L Potassium Level 3.7 3.5-5.1 mmol/L Chloride Level 107 101-111 mmol/L Carbon Dioxide Level 27 21-32 mmol/L Blood Urea Nitrogen 11 7-18 mg/dL Creatinine 1.1 0.5-1.3 mg/dL Glomerular Filtration Rate Calc 82 >90 mL/min Random Glucose 97 70-105 mg/dL Total Calcium 9.0 8.5-10.1 mg/dL Total Bilirubin 0.3 0.2-1.0 mg/dL Aspartate Amino Transf (AST/SGOT) 19 10-37 U/L Alanine Aminotransferase (ALT/SGPT) 21 12-78 U/L Alkaline Phosphatase 132 50-136 U/L Total Protein 6.6 6.0-8.3 g/dL Albumin 2.1 L 3.5-5.0 g/dL Current Medications Medications (Trade) Dose Ordered Sig/Enio Route PRN Reason Start Time Stop Time Status Last Admin Dose Admin Acetaminophen (TYLenol 500MG TAB) 500 mg Q6H PRN PO MILD PAIN (1-3) 09/19/24 14:00 10/19/24 13:59 Bupropion HCl (WellBUTrin SR 150MG) 300 mg DAILY PO 09/20/24 09:00 10/20/24 08:59 09/21/24 08:19 300 MG Cefepime HCl (MAXipime 1 GM vial) 1 gm ONCE IVPB 09/19/24 11:00 09/19/24 10:54 DC Cefepime HCl (MAXipime 2 gm vial) 2 gm Q8H IVPB 09/19/24 14:00 09/19/24 14:08 DC Cefepime HCl (MAXipime 2 gm vial) 2 gm Q8H IVPB 09/19/24 19:00 09/29/24 18:59 09/21/24 11:07 2 GM Enoxaparin Sodium (Lovenox (Pharmacy To Dose)) 1 unit Q24H SQ 09/19/24 14:00 09/19/24 14:02 DC Enoxaparin Sodium (Lovenox) 40 mg BID SQ 09/19/24 21:00 10/19/24 20:59 09/21/24 08:19 40 MG Famotidine (Pepcid 20mg Tab) 20 mg BID PO 09/19/24 21:00 10/19/24 20:59 09/21/24 08:20 20 MG Ferrous Sulfate (Ferrous Sulfate) 325 mg HS PO 09/20/24 21:00 10/20/24 20:59 09/20/24 20:03 325 MG Furosemide (LASix 40MG TAB) 40 mg DAILY PO 09/21/24 09:00 10/21/24 08:59 09/21/24 08:20 40 MG Home Med (Home Medication) (Timolol Maleate 1 DROP) DAILY OS 09/20/24 09:00 10/20/24 08:59 Levothyroxine Sodium (SYNTHroid 25MCG TAB) 25 mcg SYN PO 09/21/24 06:30 10/21/24 06:29 09/21/24 05:49 25 MCG Losartan Potassium (CozAAR 100MG TAB) 100 mg DAILY PO 09/21/24 09:00 10/21/24 08:59 09/21/24 08:19 100 MG Morphine Sulfate (morPHINE 2MG SYG) 2 mg Q4H PRN IVP SEVERE PAIN (7-10) 09/19/24 14:00 09/26/24 13:59 Ondansetron HCl (zoFRAN 4MG INJ) 4 mg Q6H PRN IVP NAUSEA/VOMITING 09/19/24 14:00 10/19/24 13:59 Potassium Chloride 100 ml @ 100 mls/hr AD PRN IV POTASSIUM PROTOCOL 09/20/24 09:00 10/20/24 08:59 Potassium Chloride (K-Dur/Klor-Con 20meq) 20 meq AD PRN PO POTASSIUM PROTOCOL 09/20/24 09:00 10/20/24 08:59 Potassium Chloride (KCl 10% Elixir 20meq/15ml) 20 meq AD PRN PO POTASSIUM PROTOCOL 09/20/24 09:00 10/20/24 08:59 Vancomycin HCl 250 ml @ 125 mls/hr Q12H IV 09/19/24 23:00 09/21/24 10:45 DC 09/20/24 22:56 125 MLS/HR Vancomycin HCl 250 ml @ 125 mls/hr Q12H IV 09/21/24 11:00 10/01/24 10:59 09/21/24 12:39 125 MLS/HR Vancomycin HCl (Vancomycin Protocol) 1 each AD IV 09/19/24 14:00 10/03/24 13:59 DIAGNOSTICS / RADIOLOGY: [facility] [address] [place] [address] IMAGING REPORT Signed PATIENT: RODRIGUE RICHARD MR#: [id number] : 1975 SEX: M AGE: 49 LOCATION: 4BH ORDER STATUS: [facility] REPORT#: [id number] SERVICE 43 REASON: PAD VS PVD ORDERING PHYSICIAN: LEVI DAIGLE PROCEDURE: ART B LE - US ARTERIAL BILAT LOW EXT DUPL US ARTERIAL BILAT LOW EXT DUPL REASON: PAD VS PVD COMPARISON: None TECHNIQUE: Bilateral lower extremity arterial Doppler was attempted. This was limited due to, particularly on the right, due to patient body habitus and a large amount of edema. FINDINGS: There is triphasic waveform in the right common femoral artery. There is elevated velocity in the proximal superficial femoral artery consistent with stenosis. Mid and distal SFA as well as the popliteal arteries were not visualized, posterior tibial and anterior tibial arteries also appear not well seen. There is triphasic flow present in the dorsalis pedis artery with preservation of flow velocity. Left leg shows triphasic waveforms present from common femoral artery through the popliteal artery, flow velocities are preserved. The posterior tibial and anterior tibial were not well visualized, there is biphasic waveform dorsalis pedis with a normal volume of flow. IMPRESSION: 1. Markedly limited exam with multiple vessels not well seen. 2. There is persistent triphasic waveform right dorsalis pedis artery suggesting absence of significant inflow occlusion. 3. There is biphasic waveform with good flow velocity left dorsalis pedis artery suggestive of absence of significant inflow occlusion. DICTATED BY: JAMES HUITRON MD DATE: 09/20/24841 ELECTRONICALLY SIGNED BY: JAMES HUITRON MD DATE: 09/20/2448 [facility] [address] [place] [address] IMAGING REPORT Signed PATIENT: RODRIGUE RICHARD MR#: [id number] : 1975 SEX: M AGE: 49 LOCATION: 4BH ORDER STATUS: ADM IN REPORT#: [id number] SERVICE 134 REASON: R/O ABSCESS ORDERING PHYSICIAN: LEVI DAIGLE PROCEDURE: LOW EXT WO - CT LOW EXT W/O CONTRAST CT LOW EXT W/O CONTRAST REASON: R/O ABSCESS COMPARISON: None TECHNIQUE: Images are obtained from distal femur through the tibiotalar joint in the axial plane. Sagittal and coronal reconstruction images were performed. Exam was performed without IV contrast. FINDINGS: There is extensive edema in the subcutaneous soft tissues. Underlying muscle bundles appears unremarkable. There are no discrete focal fluid collections to suggest a drainable abscess. There is no evidence of gas forming infection. The exam is somewhat limited by absence of IV contrast. Bones appear normal. There are no fractures and there is no evidence of osteomyelitis. IMPRESSION: 1. Extensive subcutaneous soft tissue swelling. 2. No focal abscess collection identified. DICTATED BY: JAMES HUITRON MD DATE: 09/20/2453 ELECTRONICALLY SIGNED BY: JAMES HUITRON MD DATE: 09/20/24 0859 [place] [address] [address] IMAGING REPORT Signed PATIENT: RODRIGUE RICHARD MR#: [id number] : 1975 SEX: M AGE: 49 LOCATION: [facility] ORDER 48 STATUS: [facility] REPORT#: [id number] SERVICE [id number] REASON: R/O DVT ORDERING PHYSICIAN: LEVI DAIGLE PROCEDURE: VENOUS LEE - US VENOUS DOPPLER BILATERAL US VENOUS DOPPLER BILATERAL CLINICAL HISTORY: Lower extremity edema COMPARISON: None FINDINGS: Bilateral lower extremity venous Doppler ultrasound was performed. The greater saphenous, common femoral, deep femoral, femoral , popliteal veins are widely patent and easily compressible with the ultrasound probe. Calf veins were not visualized nor was the distal right superficial femoral vein.. IMPRESSION: Limited study with no identified deep venous thrombosis in the visualized veins. DICTATED BY: MAYA MARIO DO DATE: 09/19/241713 ELECTRONICALLY SIGNED BY: MAYA MARIO DO DATE: 09/19/241718 [place] [address] [place] [address] IMAGING REPORT Signed PATIENT: RODRIGUE RICHARD MR#: [id number] : 1975 SEX: M AGE: 49 LOCATION: ED[facility]IP ORDER 140 STATUS: ADM IN REPORT#: [id number] SERVICE 140 REASON: ABSCESS ORDERING PHYSICIAN: LEVI DAIGLE PROCEDURE: SOFT LOW E - US SOFT TISSUE LOWER EXTREMITY ULTRASOUND SOFT TISSUE LOWER EXTREMITY RIGHT INDICATION: Abscess evaluation. COMPARISON: None TECHNIQUE: Multiplanar sonographic images of the posterolateral right calf were obtained earlier in real-time using grayscale and color Doppler technique, and subsequently made available for review. FINDINGS/IMPRESSION: 10.3 cm long by 1.9 cm wide complex nonorganized nondrainable fluid collection demonstrated along the posterolateral right calf with surrounding hyperemia, but still suggesting evolving abscess. DICTATED BY: ISA ALTAMIRANO MD DATE: 09/19/241438 ELECTRONICALLY SIGNED BY: ISA ALTAMIRANO MD DATE: 09/19/24 144 ASSESSMENT: Right lower extremity cellulitis with abscess, improving POA Morbid obesity, BMI 48.8 kg/M2 History of bilateral lower extremity lymphedema Hypertension Anemia Hypothyroidism PLAN:- The patient remains admitted on the medical surgical floor. Right lower extremity cellulitis with abscess, POA * Continue with IV antibiotic with cefepime and vancomycin per renal protocol * Aerobic and anaerobic wound culture is pending. Follow up on the results are available. * Per surgery team, no surgical intervention required. They have signed off from the case, recommendations appreciated. * Anicep to abscesses per wound management. Recommendations appreciated. * Continue with heart healthy diet. * Continue with pain management * GI prophylaxis famotidine 20 mg p.o. b.i.d. daily * DVT prophylaxis with Lovenox 30 mg subQ daily We will evaluate the draining abscess tomorrow a.m. Wound aerobic and anaerobic cultures are pending. Patient is a possible discharge tomorrow, can be sent home with oral antibiotics based on the cultures and sensitivity. ATTESTATION BY PHYSICIAN I have seen and examined the patient. I reviewed the documentation, medical decision making, and treatment plan as noted by the resident provider above. I agree with the findings and plan of care. Kaleigh Tobar MD, MANALI MD Sep 21, 2024 15:15
[2024-09-22] VITALS (8 sets, daily range): BP systolic 146–166; BP diastolic 80–95; PULSE 72–82; RESP 17–20; TEMP 97.7–98.1; O2SAT 97
--- NOTE | 2024-09-22 11:11 | PN ---
This is a 49-year-old male with cysts severe obesity that has been follow because of cellulitis into the right leg. Patient has started spontaneously draining in the area of the right leg and the cellulitis erythema has not getting any worse. I probed that area and I instructed the nurses to pack it with iodoform gauze. At this point we agree with current management continue packing and like previous note says there is no surgical intervention at this point because there is no imaging showing any presence of an abscess. We will send of the case and please let us know something changes in the clinical condition of the patient Vitals/Labs Vital Signs Date Time Temp Pulse Resp B/P (MAP) Pulse Ox O2 Delivery O2 Flow Rate FiO2 09/22/24 08:25 97.9 74 20 166/87 97 Room Air 09/21/24 20:43 0 21 TRISHA PAZ MD Sep 22, 2024 11:11
--- NOTE | 2024-09-22 12:29 | PN ---
[facility] PROGRESS NOTE Date of Service: Sep 22, 2024 Time of Service: 12:26 SUBJECTIVE: The patient is a 49-year-old male with a past medical history of bilateral lower limb lymphedema, hypertension, anemia, hypothyroidism presented to ED yesterday with a chief complaint of right lower extremity calf redness, greenish wound discharge and pain. It started with a small boil 3 days ago and became progressively worsened started draining yesterday. In the emergency department, serosanguineous discharge was noted. Labs were nonsignificant. He was started on cefepime and vancomycin. Ultrasound soft tissue lower extremity showed 10.3 cm long and 1.9 cm wide non drainable fluid collection on the posterolateral right calf with surrounding hyperemia, evolving abscess. He was admitted to [facility] on medical surgical floor for the management of right lower extremity cellulitis with abscess. 09/20/2024- patient was examined at bedside, lying comfortably, not in acute distress. The patient has a dressing over the draining abscess. No any acute overnight episodes, running slightly hypertensive. Labs: Hemoglobin 9.9, thrombocytosis with platelets 469, potassium 3.3, hemoglobin A1c 5.5. Per Dr. Lopez, the patient will be monitored for 24-48 hours for evolving abscess. If the condition not improve, exploration with drainage will be performed. ID recommendations are pending. 09/21/24- The patient was examined today at bedside, lying comfortably, not in acute distress. The abscess has significantly drained and appears to be improved. He has been running hypertensive with SBP in 150s and 160s. Home medications were resumed, we will closely monitor vitals. No any acute overnight episodes were noted. Per Surgery, no surgical intervention. We will continue with IV antibiotics Cefepime and Vancomycin today. 09/22/24- patient was evaluated in the room with his mother at bedside. I discussed lab results and culture results as patient is positive with Staphylococcus aureus on the wound culture. We will continue with current IV antibiotics. We are consulting Infectious Disease, pending to be seen. So far patient is afebrile. We will continue to monitor. REVIEW OF SYSTEMS CONSTITUTIONAL: Denies fevers, chills, or night sweats. No unintentional weight loss reported. NEUROLOGICAL: Denies headache, amaurosis fugax, motor weakness, sensory deficit, vertigo/spinning sensation, gait abnormalities, or tremors. ENT: No hearing loss, otalgia, otorrhea, rhinitis, rhinorrhea, hoarseness, or sore throat. CARDIOVASCULAR: Denies any exertional angina, dyspnea on exertion, orthopnea, paroxysmal nocturnal dyspnea, palpitations, life-threatening arrhythmias, claudication. PULMONARY: Denies any shortness of breath, cough, phlegm/sputum, hemoptysis, pleuritic chest pain. SLEEP: Denies morning headaches, daytime somnolence or napping. Denies difficulty falling asleep, staying asleep, waking from sleep. Denies knowledge of snoring. GASTROINTESTINAL: Denies any type of dysphagia to either liquids or solids. Denies nausea, vomiting, pyrosis, early satiety, abdominal pain, diarrhea, constipation, or changes in stool consistency or caliber. Denies coffee-ground emesis, hematemesis, hematochezia, or melanotic stools. GENITOURINARY: Denies frequency, urgency, nocturia, hematuria or incontinence (Storage/Irritative symptoms.) Low urinary stream, straining to void, urinary intermittency or hesitancy, splitting of the voiding stream, terminal dribbling. ENDOCRINOLOGIC: Denies polyuria, polydipsia, polyphagia or heat/cold intolerances. HEMATOLOGIC: Denies thrombophilia/previous clots, or coagulopathy/bleeding disorders. ONCOLOGIC: Denies personal history of malignancy. DERMATOLOGIC: Reports redness to right LE, with pus noted, bilateral lymphedema noted PSYCHIATRIC: Denies any suicidal or homicidal ideation. Denies hallucinations. PHYSICAL EXAM GENERAL APPEARANCE: The patient is awake, alert, and oriented, in no acute cardiopulmonary distress. NEUROLOGICAL: Cranial nerves II-XII grossly intact. Motor is 5/5 in bilateral upper and lower extremities proximal to distal. No sensory deficits. HEENT: Face is symmetric. Pupils are equal and reactive. Extraocular movements are intact. NECK: Supple. No JVD. No thyromegaly. No submental, submandibular, pre- /postauricular, occipital or supraclavicular lymphadenopathy. CHEST: Normal chest expansion. No Telemetry. LUNGS: Absence of any rales, rhonchi or any wheezing. CARDIOVASCULAR: Regular. S1 and S2 normal. No appreciable rubs, murmurs or gallops. ABDOMEN: Soft, nontender, and nondistended. There is no rebound, voluntary guarding, or rigidity. : Deferred. No Bennett. EXTREMITIES: BLE lymphedema with right LE drainage noted SKIN: Lymphedema, RLE wound Vital Signs (last 8hr) Date Time Temp Pulse Resp B/P (MAP) Pulse Ox O2 Delivery O2 Flow Rate FiO2 09/22/24 11:21 97.9 76 20 154/90 97 Room Air 09/22/24 08:25 97.9 74 20 166/87 97 Room Air LABS: Laboratory: Test 09/21/24 10:05 09/21/24 04:52 Range/Units Vancomycin Level Trough 19.6 10.0-20.0 UG/ML White Blood Count 8.2 4.8-10.8 K/uL Red Blood Count 4.21 L 4.50-6.20 MIL/uL Hemoglobin 10.1 L 14.0-18.0 g/dL Hematocrit 33.6 L 42-54 % Mean Corpuscular Volume 79.8 79-99 fL Mean Corpuscular Hemoglobin 24.0 L 27.0-33.0 pg Mean Corpuscular Hemoglobin Concent 30.1 L 32.0-36.0 g/dL Red Cell Distribution Width 14.8 11.0-15.5 % Platelet Count 385 130-400 K/uL Mean Platelet Volume 8.3 7.5-10.5 fL Immature Granulocyte % (Auto) 1.1 H 0-1 % Neutrophils (%) (Auto) 64.7 40.0-77.0 % Lymphocytes (%) (Auto) 17.6 L 21.0-51.0 % Monocytes (%) (Auto) 13.1 H 3.0-13.0 % Eosinophils (%) (Auto) 2.9 0.0-8.0 % Basophils (%) (Auto) 0.6 0.0-5.0 % Neutrophils # (Auto) 5.3 1.8-7.7 K/uL Lymphocytes # (Auto) 1.4 1.0-4.8 K/uL Monocytes # (Auto) 1.1 H 0.1-1.0 K/uL Eosinophils # (Auto) 0.24 0.00-0.70 K/uL Basophils # (Auto) 0.05 0.00-0.20 K/uL Absolute Immature Granulocyte (auto 0.09 0-1 K/uL Nucleated Red Blood Cells 0.0 0.0-0.19 % Sodium Level 142 136-145 mmol/L Potassium Level 3.7 3.5-5.1 mmol/L Chloride Level 107 101-111 mmol/L Carbon Dioxide Level 27 21-32 mmol/L Blood Urea Nitrogen 11 7-18 mg/dL Creatinine 1.1 0.5-1.3 mg/dL Glomerular Filtration Rate Calc 82 >90 mL/min Random Glucose 97 70-105 mg/dL Total Calcium 9.0 8.5-10.1 mg/dL Current Medications Medications (Trade) Dose Ordered Sig/Enio Route PRN Reason Start Time Stop Time Status Last Admin Dose Admin Acetaminophen (TYLenol 500MG TAB) 500 mg Q6H PRN PO MILD PAIN (1-3) 09/19/24 14:00 10/19/24 13:59 Aspirin (Aspirin 81mg Ec Tab) 81 mg DAILY PO 09/23/24 09:00 10/23/24 08:59 Brimonidine Tartrate (Alphagan P) 1 DROP OS HS HS OS 09/22/24 21:00 10/22/24 20:59 Bupropion HCl (WellBUTrin SR 150MG) 300 mg DAILY PO 09/20/24 09:00 10/20/24 08:59 09/22/24 08:45 300 MG Cefepime HCl (MAXipime 1 GM vial) 1 gm ONCE IVPB 09/19/24 11:00 09/19/24 10:54 DC Cefepime HCl (MAXipime 2 gm vial) 2 gm Q8H IVPB 09/19/24 14:00 09/19/24 14:08 DC Cefepime HCl (MAXipime 2 gm vial) 2 gm Q8H IVPB 09/19/24 19:00 09/29/24 18:59 09/22/24 11:26 2 GM Citalopram Hydrobromide (CeleXA 20MG TAB) 90 mg DAILY PO 09/23/24 09:00 10/23/24 08:59 Enoxaparin Sodium (Lovenox (Pharmacy To Dose)) 1 unit Q24H SQ 09/19/24 14:00 09/19/24 14:02 DC Enoxaparin Sodium (Lovenox) 40 mg BID SQ 09/19/24 21:00 10/19/24 20:59 09/22/24 08:47 40 MG Famotidine (Pepcid 20mg Tab) 20 mg BID PO 09/19/24 21:00 10/19/24 20:59 09/22/24 08:45 20 MG Ferrous Sulfate (Ferrous Sulfate) 325 mg HS PO 09/20/24 21:00 10/20/24 20:59 09/21/24 20:35 325 MG Furosemide (LASix 40MG TAB) 40 mg DAILY PO 09/21/24 09:00 10/21/24 08:59 09/22/24 08:45 40 MG Home Med (Home Medication) (Timolol Maleate 1 DROP) DAILY OS 09/20/24 09:00 10/20/24 08:59 Hydralazine HCl (VMWIUVOcns29MH TAB) 50 mg BID PO 09/22/24 21:00 10/22/24 20:59 Latanoprost (Xalatan) 1 DROP OS HS HS OS 09/22/24 21:00 10/22/24 20:59 Levothyroxine Sodium (SYNTHroid 25MCG TAB) 25 mcg SYN PO 09/21/24 06:30 10/21/24 06:29 09/22/24 06:04 25 MCG Losartan Potassium (CozAAR 100MG TAB) 100 mg DAILY PO 09/21/24 09:00 10/21/24 08:59 09/22/24 08:45 100 MG Morphine Sulfate (morPHINE 2MG SYG) 2 mg Q4H PRN IVP SEVERE PAIN (7-10) 09/19/24 14:00 09/26/24 13:59 Ondansetron HCl (zoFRAN 4MG INJ) 4 mg Q6H PRN IVP NAUSEA/VOMITING 09/19/24 14:00 10/19/24 13:59 Potassium Chloride 100 ml @ 100 mls/hr AD PRN IV POTASSIUM PROTOCOL 09/20/24 09:00 10/20/24 08:59 Potassium Chloride (K-Dur/Klor-Con 20meq) 20 meq AD PRN PO POTASSIUM PROTOCOL 09/20/24 09:00 10/20/24 08:59 Potassium Chloride (KCl 10% Elixir 20meq/15ml) 20 meq AD PRN PO POTASSIUM PROTOCOL 09/20/24 09:00 10/20/24 08:59 Vancomycin HCl 250 ml @ 125 mls/hr Q12H IV 09/19/24 23:00 09/21/24 10:45 DC 09/20/24 22:56 125 MLS/HR Vancomycin HCl 250 ml @ 125 mls/hr Q12H IV 09/21/24 11:00 10/01/24 10:59 09/21/24 23:20 125 MLS/HR Vancomycin HCl (Vancomycin Protocol) 1 each AD IV 09/19/24 14:00 10/03/24 13:59 DIAGNOSTICS / RADIOLOGY: [ ] ASSESSMENT: Right lower extremity cellulitis with abscess, improving POA Morbid obesity, BMI 48.8 kg/M2 History of bilateral lower extremity lymphedema Hypertension Anemia Hypothyroidism PLAN:- The patient remains admitted on the medical surgical floor. Right lower extremity cellulitis with abscess, POA * Continue with IV antibiotic with cefepime and vancomycin per renal protocol * Aerobic and anaerobic wound culture is positive with Staphylococcus aureus. Infectious disease consulted, continue with vancomycin and cefepime * Per surgery team, no surgical intervention required. They have signed off from the case, recommendations appreciated. * Anicep to abscesses per wound management. Recommendations appreciated. * Continue with heart healthy diet. * Continue with pain management * GI prophylaxis famotidine 20 mg p.o. b.i.d. daily * DVT prophylaxis with Lovenox 30 mg subQ daily Case discussed with Dr. Maurer, above was formulated ATTESTATION BY PHYSICIAN I have seen and examined the patient. I reviewed the documentation, medical decision making, and treatment plan as noted by the mid-level provider above. I agree with the findings and plan of care. REMBERTO MAURER MD, [facility] Sep 22, 2024 12:29
[2024-09-22] MEDS: BRIMONIDINE TARTRATE 0.2% 5 ML BOTTLE OS SCH (21:00)
[2024-09-22] MEDS: LATANOPROST 2.5 ML DROPS OS SCH (21:00)
[2024-09-22] MEDS: hydrALAZine 25MG TABLET PO SCH (21:04)
[2024-09-22] MEDS: SENNOSIDES 8.6 MG TABLET PO SCH (21:04)
[2024-09-23] VITALS (8 sets, daily range): BP systolic 152–156; BP diastolic 81–101; PULSE 68–78; RESP 16–20; TEMP 98–98.6; O2SAT 96–98
[2024-09-23] MEDS: ceFEPime HCL 2 GM VIAL IVPB SCH (05:31)
--- NOTE | 2024-09-23 05:49 | CONS ---
INFECTIOUS DISEASE CONSULTATION DATE OF SERVICE: 09/22/2024 REQUESTING PHYSICIAN: Imelda Holland NP REASON FOR CONSULTATION: Right leg abscess and cellulitis. HISTORY OF PRESENT ILLNESS: A 49-year-old male with history of hypertension, morbid obesity, lymphedema, presented to the hospital with right leg pain, swelling and redness. The patient also complained of subjective fever and chills. No history of trauma or fall. The patient had imaging done, which showed area of abscess formation. The patient's wound culture is growing MSSA. The patient is presently on vancomycin and cefepime. The patient has been seen by surgical team. Denied trauma or fall. PAST MEDICAL HISTORY: * Asthma. * Morbid obesity. * Hypertension. * Chronic lymphedema. PAST SURGICAL HISTORY: * Cholecystectomy. * Bilateral knee surgery. ALLERGIES: No known drug allergy. CURRENT MEDICATIONS: Reviewed. SOCIAL HISTORY: Lives with parents. The patient is from [place]. No alcohol, tobacco or illicit drug use. FAMILY HISTORY: Noncontributory. REVIEW OF SYSTEMS: CONSTITUTIONAL: No fever or chills. No weight loss or night sweats. EYES: No eye pain, no photophobia or diplopia. HENT: No sore throat, no rhinorrhea or earache. NECK: No neck pain or neck swelling. RESPIRATORY: No cough, no hemoptysis or pleuritic pain. CARDIOVASCULAR: No chest pain, no palpitation or orthopnea. GASTROINTESTINAL: Denied nausea, vomiting or abdominal pain. GENITOURINARY: No dysuria, urgency or urinary frequency. CENTRAL NERVOUS SYSTEM: No headache, dizziness or slurred speech. PSYCHIATRY: No depression, no suicidal ideation. EXTREMITIES: Positive for right leg pain, swelling and redness. PHYSICAL EXAMINATION: GENERAL: Young male, awake. VITAL SIGNS: Temperature 97.9, pulse 76, respiratory rate 20, BP 154/90. EYES: No icterus. Pupils equal and reactive. HENT: No oral thrush seen. Moist oral mucosa. NECK: Supple. No JVD or thyromegaly. LUNGS: Good air entry. No rales, no rhonchi. CARDIOVASCULAR: S1, S2 regular. No murmur heard. ABDOMEN: Morbidly obese, soft, nontender. Bowel sound is present. CENTRAL NERVOUS SYSTEM: Awake, alert, oriented x 3. No focal deficits. SKIN: No rashes, no itchiness. LYMPHATIC: Right inguinal lymphadenopathy. BACK: No deformity, no pressure ulcer. EXTREMITIES: Lymphedema of both lower extremities. Area of with abscess involving the right lower leg. There is surrounding cellulitis. LABORATORY DATA: Sodium 142, potassium 3.3, BUN 11, creatinine 1.1. WBC 8.2, hemoglobin 10.1, platelets 385. Right leg wound culture growing Staphylococcus aureus. RADIOLOGY: Venous Doppler negative. ASSESSMENT: A 49-year-old male presented with right leg pain, swelling, redness. Current problems include: * Right leg abscess. * Right lower extremity cellulitis. * Morbid obesity. * Lymphedema. * Possible obstructive sleep apnea. * Anemia. PLAN: * Follow up cultures. * Continue wound care. * Continue cefepime. * Continue vancomycin. * Continue DVT prophylaxis. * Continue pain management. * Continue antiemetic. The patient will need surgical intervention, incision and drainage. Thank you for allowing me to participate in the care of this patient. TID: [id number] RECEIPT: [id number]
[2024-09-23] MEDS: ASPIRIN 81 MG EC TAB PO SCH (08:50)
[2024-09-23] MEDS: citaLOPram 20 MG TABLET PO SCH (08:50)
[2024-09-23 10:05] LABS: BASOPHILS # (AUTO) 0.06 K/uL (0.00-0.20); BASOPHILS % (AUTO) 0.8 % (0.0-5.0); EOSINOPHILS # (AUTO) 0.25 K/uL (0.00-0.70); EOSINOPHILS % (AUTO) 3.2 % (0.0-8.0); HEMATOCRIT 33.9 % (42-54); IMMATURE GRANULOCYTE ABSOLUTE 0.09 K/uL (0-1); LYMPHOCYTES # (AUTO) 1.4 K/uL (1.0-4.8); LYMPHOCYTES % (AUTO) 17.4 % (21.0-51.0); MEAN CORPUSCULAR HEMOGLOBIN 23.7 pg (27.0-33.0); MEAN CORPUSCULAR HGB CONC 30.7 g/dL (32.0-36.0); MEAN CORPUSCULAR VOLUME 77.4 fL (79-99); MONOCYTES # (AUTO) 1.1 K/uL (0.1-1.0); MONOCYTES % (AUTO) 14.1 % (3.0-13.0); NEUTROPHILS # (AUTO) 4.9 K/uL (1.8-7.7); NEUTROPHILS % (AUTO) 63.3 % (40.0-77.0); PLATELET COUNT (AUTO) 391 K/uL (130-400); RED BLOOD CELL COUNT(AUTO) 4.38 MIL/uL (4.50-6.20); RED CELL DISTRIBUTION WIDTH 15.1 % (11.0-15.5); WHITE BLOOD COUNT (AUTO) 7.7 K/uL (4.8-10.8)
[2024-09-23 10:17] LABS: ALBUMIN 2.2 g/dL (3.5-5.0); BILIRUBIN,TOTAL 0.3 mg/dL (0.2-1.0); CREATININE 1.1 mg/dL (0.5-1.3); POTASSIUM 3.6 mmol/L (3.5-5.1)
--- NOTE | 2024-09-23 12:44 | PN ---
[facility] PROGRESS NOTE Date of Service: Sep 23, 2024 Time of Service: 12:41 SUBJECTIVE: The patient is a 49-year-old male with a past medical history of bilateral lower limb lymphedema, hypertension, anemia, hypothyroidism presented to ED yesterday with a chief complaint of right lower extremity calf redness, greenish wound discharge and pain. It started with a small boil 3 days ago and became progressively worsened started draining yesterday. In the emergency department, serosanguineous discharge was noted. Labs were nonsignificant. He was started on cefepime and vancomycin. Ultrasound soft tissue lower extremity showed 10.3 cm long and 1.9 cm wide non drainable fluid collection on the posterolateral right calf with surrounding hyperemia, evolving abscess. He was admitted to [facility] on medical surgical floor for the management of right lower extremity cellulitis with abscess. 09/20/2024- patient was examined at bedside, lying comfortably, not in acute distress. The patient has a dressing over the draining abscess. No any acute overnight episodes, running slightly hypertensive. Labs: Hemoglobin 9.9, thrombocytosis with platelets 469, potassium 3.3, hemoglobin A1c 5.5. Per Dr. Lopez, the patient will be monitored for 24-48 hours for evolving abscess. If the condition not improve, exploration with drainage will be performed. ID recommendations are pending. 09/21/24- The patient was examined today at bedside, lying comfortably, not in acute distress. The abscess has significantly drained and appears to be improved. He has been running hypertensive with SBP in 150s and 160s. Home medications were resumed, we will closely monitor vitals. No any acute overnight episodes were noted. Per Surgery, no surgical intervention. We will continue with IV antibiotics Cefepime and Vancomycin today. 09/22/24- patient was evaluated in the room with his mother at bedside. I discussed lab results and culture results as patient is positive with Staphylococcus aureus on the wound culture. We will continue with current IV antibiotics. We are consulting Infectious Disease, pending to be seen. So far patient is afebrile. We will continue to monitor. 09/23/24 patient was evaluated in the room, mother at bedside. Patient has been evaluated by Infectious Disease who recommended to continue with vancomycin and cefepime. We will follow up with general surgeon on further recommendations. REVIEW OF SYSTEMS CONSTITUTIONAL: Denies fevers, chills, or night sweats. No unintentional weight loss reported. NEUROLOGICAL: Denies headache, amaurosis fugax, motor weakness, sensory deficit, vertigo/spinning sensation, gait abnormalities, or tremors. ENT: No hearing loss, otalgia, otorrhea, rhinitis, rhinorrhea, hoarseness, or sore throat. CARDIOVASCULAR: Denies any exertional angina, dyspnea on exertion, orthopnea, paroxysmal nocturnal dyspnea, palpitations, life-threatening arrhythmias, claudi cation. PULMONARY: Denies any shortness of breath, cough, phlegm/sputum, hemoptysis, pleuritic chest pain. SLEEP: Denies morning headaches, daytime somnolence or napping. Denies difficulty falling asleep, staying asleep, waking from sleep. Denies knowledge of snoring. GASTROINTESTINAL: Denies any type of dysphagia to either liquids or solids. Denies nausea, vomiting, pyrosis, early satiety, abdominal pain, diarrhea, constipation, or changes in stool consistency or caliber. Denies coffee-ground emesis, hematemesis, hematochezia, or melanotic stools. GENITOURINARY: Denies frequency, urgency, nocturia, hematuria or incontinence (Storage/Irritative symptoms.) Low urinary stream, straining to void, urinary intermittency or hesitancy, splitting of the voiding stream, terminal dribbling. ENDOCRINOLOGIC: Denies polyuria, polydipsia, polyphagia or heat/cold intolerances. HEMATOLOGIC: Denies thrombophilia/previous clots, or coagulopathy/bleeding disorders. ONCOLOGIC: Denies personal history of malignancy. DERMATOLOGIC: Reports redness to right LE, with pus noted, bilateral lymphedema noted PSYCHIATRIC: Denies any suicidal or homicidal ideation. Denies hallucinations. PHYSICAL EXAM GENERAL APPEARANCE: The patient is awake, alert, and oriented, in no acute cardiopulmonary distress. NEUROLOGICAL: Cranial nerves II-XII grossly intact. Motor is 5/5 in bilateral upper and lower extremities proximal to distal. No sensory deficits. HEENT: Face is symmetric. Pupils are equal and reactive. Extraocular movements are intact. NECK: Supple. No JVD. No thyromegaly. No submental, submandibular, pre- /postauricular, occipital or supraclavicular lymphadenopathy. CHEST: Normal chest expansion. No Telemetry. LUNGS: Absence of any rales, rhonchi or any wheezing. CARDIOVASCULAR: Regular. S1 and S2 normal. No appreciable rubs, murmurs or gallops. ABDOMEN: Soft, nontender, and nondistended. There is no rebound, voluntary guarding, or rigidity. : Deferred. No Bennett. EXTREMITIES: BLE lymphedema with right LE drainage noted SKIN: Lymphedema, RLE wound Vital Signs (last 8hr) Date Time Temp Pulse Resp B/P (MAP) Pulse Ox O2 Delivery O2 Flow Rate FiO2 09/23/24 11:20 98.6 72 20 155/101 100 Room Air 09/23/24 08:16 98.6 70 16 155/99 98 Room Air 09/23/24 08:00 98 Room Air* 0 21 LABS: Laboratory: Test 09/23/24 09:41 Range/Units White Blood Count 7.7 4.8-10.8 K/uL Red Blood Count 4.38 L 4.50-6.20 MIL/uL Hemoglobin 10.4 L 14.0-18.0 g/dL Hematocrit 33.9 L 42-54 % Mean Corpuscular Volume 77.4 L 79-99 fL Mean Corpuscular Hemoglobin 23.7 L 27.0-33.0 pg Mean Corpuscular Hemoglobin Concent 30.7 L 32.0-36.0 g/dL Red Cell Distribution Width 15.1 11.0-15.5 % Platelet Count 391 130-400 K/uL Mean Platelet Volume 8.1 7.5-10.5 fL Immature Granulocyte % (Auto) 1.2 H 0-1 % Neutrophils (%) (Auto) 63.3 40.0-77.0 % Lymphocytes (%) (Auto) 17.4 L 21.0-51.0 % Monocytes (%) (Auto) 14.1 H 3.0-13.0 % Eosinophils (%) (Auto) 3.2 0.0-8.0 % Basophils (%) (Auto) 0.8 0.0-5.0 % Neutrophils # (Auto) 4.9 1.8-7.7 K/uL Lymphocytes # (Auto) 1.4 1.0-4.8 K/uL Monocytes # (Auto) 1.1 H 0.1-1.0 K/uL Eosinophils # (Auto) 0.25 0.00-0.70 K/uL Basophils # (Auto) 0.06 0.00-0.20 K/uL Absolute Immature Granulocyte (auto 0.09 0-1 K/uL Nucleated Red Blood Cells 0.0 0.0-0.19 % Sodium Level 144 136-145 mmol/L Potassium Level 3.6 3.5-5.1 mmol/L Chloride Level 106 101-111 mmol/L Carbon Dioxide Level 32 21-32 mmol/L Blood Urea Nitrogen 12 7-18 mg/dL Creatinine 1.1 0.5-1.3 mg/dL Glomerular Filtration Rate Calc 82 >90 mL/min Random Glucose 99 70-105 mg/dL Total Calcium 8.8 8.5-10.1 mg/dL Total Bilirubin 0.3 0.2-1.0 mg/dL Aspartate Amino Transf (AST/SGOT) 26 10-37 U/L Alanine Aminotransferase (ALT/SGPT) 25 12-78 U/L Alkaline Phosphatase 140 H 50-136 U/L Total Protein 7.0 6.0-8.3 g/dL Albumin 2.2 L 3.5-5.0 g/dL Vancomycin Level Trough 22.1 H 10.0-20.0 UG/ML Current Medications Medications (Trade) Dose Ordered Sig/Enio Route PRN Reason Start Time Stop Time Status Last Admin Dose Admin Acetaminophen (TYLenol 500MG TAB) 500 mg Q6H PRN PO MILD PAIN (1-3) 09/19/24 14:00 10/19/24 13:59 Aspirin (Aspirin 81mg Ec Tab) 81 mg DAILY PO 09/23/24 09:00 10/23/24 08:59 09/23/24 08:50 81 MG Brimonidine Tartrate (Alphagan P) 1 DROP OS HS HS OS 09/22/24 21:00 10/22/24 20:59 Bupropion HCl (WellBUTrin SR 150MG) 300 mg DAILY PO 09/20/24 09:00 10/20/24 08:59 09/23/24 08:52 300 MG Cefepime HCl (MAXipime 1 GM vial) 1 gm ONCE IVPB 09/19/24 11:00 09/19/24 10:54 DC Cefepime HCl (MAXipime 2 gm vial) 2 gm Q8H IVPB 09/19/24 14:00 09/19/24 14:08 DC Cefepime HCl (MAXipime 2 gm vial) 2 gm Q8H IVPB 09/19/24 19:00 09/23/24 03:37 DC 09/22/24 21:07 2 GM Cefepime HCl (MAXipime 2 gm vial) 2 gm Q8H IVPB 09/23/24 06:00 09/29/24 05:59 09/23/24 05:31 2 GM Citalopram Hydrobromide (CeleXA 20MG TAB) 90 mg DAILY PO 09/23/24 09:00 10/23/24 08:59 09/23/24 08:50 90 MG Enoxaparin Sodium (Lovenox (Pharmacy To Dose)) 1 unit Q24H SQ 09/19/24 14:00 09/19/24 14:02 DC Enoxaparin Sodium (Lovenox) 40 mg BID SQ 09/19/24 21:00 10/19/24 20:59 09/23/24 08:52 40 MG Famotidine (Pepcid 20mg Tab) 20 mg BID PO 09/19/24 21:00 10/19/24 20:59 09/23/24 08:49 20 MG Ferrous Sulfate (Ferrous Sulfate) 325 mg HS PO 09/20/24 21:00 10/20/24 20:59 09/22/24 21:04 325 MG Furosemide (LASix 40MG TAB) 40 mg DAILY PO 09/21/24 09:00 10/21/24 08:59 09/23/24 08:50 40 MG Home Med (Home Medication) (Timolol Maleate 1 DROP) DAILY OS 09/20/24 09:00 10/20/24 08:59 Hydralazine HCl ([id number] TAB) 25 mg TID PO 09/23/24 14:00 10/23/24 13:59 Hydralazine HCl ([id number] TAB) 50 mg BID PO 09/22/24 21:00 09/23/24 11:24 DC 09/23/24 08:51 50 MG Latanoprost (Xalatan) 1 DROP OS HS HS OS 09/22/24 21:00 10/22/24 20:59 Levothyroxine Sodium (SYNTHroid 25MCG TAB) 25 mcg SYN PO 09/21/24 06:30 10/21/24 06:29 09/23/24 05:31 25 MCG Losartan Potassium (CozAAR 100MG TAB) 100 mg DAILY PO 09/21/24 09:00 10/21/24 08:59 09/23/24 08:50 100 MG Morphine Sulfate (morPHINE 2MG SYG) 2 mg Q4H PRN IVP SEVERE PAIN (7-10) 09/19/24 14:00 09/26/24 13:59 Ondansetron HCl (zoFRAN 4MG INJ) 4 mg Q6H PRN IVP NAUSEA/VOMITING 09/19/24 14:00 10/19/24 13:59 Potassium Chloride 100 ml @ 100 mls/hr AD PRN IV POTASSIUM PROTOCOL 09/20/24 09:00 10/20/24 08:59 Potassium Chloride (K-Dur/Klor-Con 20meq) 20 meq AD PRN PO POTASSIUM PROTOCOL 09/20/24 09:00 10/20/24 08:59 Potassium Chloride (KCl 10% Elixir 20meq/15ml) 20 meq AD PRN PO POTASSIUM PROTOCOL 09/20/24 09:00 10/20/24 08:59 Sennosides (Senna) 2 tab BID PO 09/22/24 21:00 10/22/24 20:59 09/23/24 08:50 2 TAB Vancomycin HCl 250 ml @ 125 mls/hr Q12H IV 09/19/24 23:00 09/21/24 10:45 DC 09/20/24 22:56 125 MLS/HR Vancomycin HCl 250 ml @ 125 mls/hr Q12H IV 09/21/24 11:00 09/23/24 10:39 DC 09/22/24 23:04 125 MLS/HR Vancomycin HCl 250 ml @ 125 mls/hr Q12H IV 09/23/24 23:00 10/03/24 22:59 Vancomycin HCl (Vancomycin Protocol) 1 each AD IV 09/19/24 14:00 10/03/24 13:59 DIAGNOSTICS / RADIOLOGY: [ ] ASSESSMENT: Right lower extremity cellulitis with abscess, improving POA Morbid obesity, BMI 48.8 kg/M2 History of bilateral lower extremity lymphedema Hypertension Anemia Hypothyroidism PLAN:- The patient remains admitted on the medical surgical floor. Right lower extremity cellulitis with abscess, POA * Continue with IV antibiotic with cefepime and vancomycin per renal protocol * Aerobic and anaerobic wound culture is positive with Staphylococcus aureus. Infectious disease consulted, continue with vancomycin and cefepime * We will reconsult surgery, we will continue to follow * Anicep to abscesses per wound management. Recommendations appreciated. * Continue with heart healthy diet. * Continue with pain management * GI prophylaxis famotidine 20 mg p.o. b.i.d. daily * DVT prophylaxis with Lovenox 30 mg subQ daily Case discussed with Dr. Maurer, above was formulated ATTESTATION BY PHYSICIAN I have seen and examined the patient. I reviewed the documentation, medical decision making, and treatment plan as noted by the mid-level provider above. I agree with the findings and plan of care. REMBERTO MAURER MD, [facility] Sep 23, 2024 12:44
[2024-09-23] MEDS: hydrALAZine 25MG TABLET PO SCH (13:51)
[2024-09-23] MEDS: ceFAZolin SODIUM 2 GM VIAL IVPB SCH (13:52)
--- NOTE | 2024-09-23 20:24 | PN ---
DATE OF 09/23/2024 INFECTIOUS DISEASE FOLLOWUP NOTE SUBJECTIVE: The patient is seen. No fever, no chills. No bleeding tendency. No chest pain, no palpitation or orthopnea. Denied depression. No suicidal ideation. Has continued with the antibiotic. Pain and swelling to the right leg are better. PHYSICAL EXAMINATION: VITAL SIGNS: Temperature today 98.1. EYES: No icterus. Pupils equal and reactive. HENT: No oral thrush seen. Moist oral mucosa. NECK: Supple. No JVD or thyromegaly. LUNGS: Good air entry. No rales, no rhonchi. CARDIOVASCULAR SYSTEM: S1, S2 regular. No murmur heard. ABDOMEN: Morbidly obese, soft, nontender. Bowel sounds are still present. CENTRAL NERVOUS SYSTEM: Awake, alert, and oriented x 3. No focal deficits. SKIN: No rashes, no itchiness. LYMPHATICS: There is right inguinal lymphadenopathy. BACK: No deformity, no pressure ulcer. EXTREMITIES: Area of cellulitis and abscess involving the lateral aspect of the right lower leg. ASSESSMENT: A 49-year-old male with multiple problems including: * Right lower extremity abscess. * Right leg cellulitis. * Lymphedema. * Morbid obesity. * Obstructive sleep apnea. PLAN: * Continue wound care. * Continue pain management. * Continue antibiotic. * Continue DVT prophylaxis. * Monitor electrolytes. * The patient will need incision and drainage of abscess. TID: [id number] RECEIPT: [id number] MTDD
[2024-09-23] MEDS: LORazepam 1 MG TABLET PO PRN (20:36)
[2024-09-23] MEDS ORDERED: VANCOMYCIN 1G/250ML KIT 250 ML IV SCH (23:00)
[2024-09-24] VITALS (27 sets, daily range): BP systolic 101–207; BP diastolic 34–104; PULSE 66–87; RESP 15–20; TEMP 97.3–98.1; O2SAT 96–97
[2024-09-24] MEDS ORDERED: LIDOCAINE PF 100MG/5ML (2%) SYRINGE 5ML ONE (07:53)
[2024-09-24] MEDS ORDERED: FENTanyl CITRate PF 50 MCG/1 ML 2ML VIAL ONE (07:54)
[2024-09-24] MEDS ORDERED: rocuRONium bROMide 10MG/1ML 5ML VL ONE (07:54)
[2024-09-24] MEDS ORDERED: MIDAZOLAM HCL 1 MG/ML 2ML VIAL ONE ×2 (07:54→09:53)
[2024-09-24] MEDS ORDERED: proPOFol 10 MG/ML 20ML VIAL IV ONE (07:54)
[2024-09-24] MEDS ORDERED: ketaMINE 50MG/ML SYRINGE 50 MG/ML DISP.SYRIN ONE (09:26)
[2024-09-24] MEDS ORDERED: GLYCOPYRROLATE 0.2 MG/ML 5 ML VIAL ONE (09:27)
[2024-09-24] MEDS ORDERED: ALBUTEROL INHALER 90MCG/INH IH ONE (09:37)
[2024-09-24] MEDS: BUPIvacaine/PF 0.5% 30ML VIAL ONE (09:53)
--- NOTE | 2024-09-24 10:05 | OP ---
Operative Note: DATE OF PROCEDURE: 09/24/24 SURGEON: TRISHA PAZ MD [employer] CONSULTANT: [] ANESTHESIA: [] Conscious sedation and local ANESTHESIOLOGIST/INSURANCE AGENCY OWNER: [] PREOPERATIVE DIAGNOSIS: [] Abscess of the right lower leg POSTOPERATIVE DIAGNOSIS: [] The same SYNOPSIS: [] PROCEDURE: [] Incision and drainage of right lower leg abscess ESTIMATED BLOOD LOSS: [] INDICATIONS: [] DESCRIPTION OF PROCEDURE: [] Minimal with the patient prepped in usual fashion with conscious sedation I injected 5 cc of Marcaine. I then make an incision about 10 cm long in the elliptical. A cavity was found in the superficial subcutaneous tissue in the right lower leg. No significant pus was able to be obtained. Of the irrigation I packed the wound with the iodoform gauze. Procedure was completed we then any complication TRISHA PAZ MD Sep 24, 2024 10:05
--- NOTE | 2024-09-24 14:00 | PN ---
[facility] PROGRESS NOTE Date of Service: Sep 24, 2024 Time of Service: 13:46 SUBJECTIVE: The patient is a 49-year-old male with a past medical history of bilateral lower limb lymphedema, hypertension, anemia, hypothyroidism presented to ED yesterday with a chief complaint of right lower extremity calf redness, greenish wound discharge and pain. It started with a small boil 3 days ago and became progressively worsened started draining yesterday. In the emergency department, serosanguineous discharge was noted. Labs were nonsignificant. He was started on cefepime and vancomycin. Ultrasound soft tissue lower extremity showed 10.3 cm long and 1.9 cm wide non drainable fluid collection on the posterolateral right calf with surrounding hyperemia, evolving abscess. He was admitted to [facility] on medical surgical floor for the management of right lower extremity cellulitis with abscess. 09/20/2024- patient was examined at bedside, lying comfortably, not in acute distress. The patient has a dressing over the draining abscess. No any acute overnight episodes, running slightly hypertensive. Labs: Hemoglobin 9.9, thrombocytosis with platelets 469, potassium 3.3, hemoglobin A1c 5.5. Per Dr. Lopez, the patient will be monitored for 24-48 hours for evolving abscess. If the condition not improve, exploration with drainage will be performed. ID recommendations are pending. 09/21/24- The patient was examined today at bedside, lying comfortably, not in acute distress. The abscess has significantly drained and appears to be improved. He has been running hypertensive with SBP in 150s and 160s. Home medications were resumed, we will closely monitor vitals. No any acute overnight episodes were noted. Per Surgery, no surgical intervention. We will continue with IV antibiotics Cefepime and Vancomycin today. 09/22/24- patient was evaluated in the room with his mother at bedside. I discussed lab results and culture results as patient is positive with Staphylococcus aureus on the wound culture. We will continue with current IV antibiotics. We are consulting Infectious Disease, pending to be seen. So far patient is afebrile. We will continue to monitor. 09/23/24 patient was evaluated in the room, mother at bedside. Patient has been evaluated by Infectious Disease who recommended to continue with vancomycin and cefepime. We will follow up with general surgeon on further recommendations. 1/6/25 the patient was seen this morning following incision and drainage of a right lower extremity abscess. The patient reports feeling significantly better and denies any pain. Vital signs are stable, although blood pressure is elevated at 161/86. The patient will be monitored closely to assess blood pressure trends and determine if antihypertensive medication is necessary to add. Laboratory results from today include: WBC: 7.7 Previously 8.2. Myoglobin: 10.4 Previously 10.1. Platelets: 391 previously 385. Sodium: 144 Previously 142. Potassium 3.6 previously 3.7. Creatinine: 1.1. The abscess culture is positive for Staphylococcus areas. Infectious Disease has discontinued vancomycin and initiated cefazolin therapy. Patient will remain under observation with ongoing management per Infectious Disease and General surgery recommendations. REVIEW OF SYSTEMS CONSTITUTIONAL: Denies fevers, chills, or night sweats. No unintentional weight loss reported. NEUROLOGICAL: Denies headache, amaurosis fugax, motor weakness, sensory deficit, vertigo/spinning sensation, gait abnormalities, or tremors. ENT: No hearing loss, otalgia, otorrhea, rhinitis, rhinorrhea, hoarseness, or sore throat. CARDIOVASCULAR: Denies any exertional angina, dyspnea on exertion, orthopnea, paroxysmal nocturnal dyspnea, palpitations, life-threatening arrhythmias, claudication. PULMONARY: Denies any shortness of breath, cough, phlegm/sputum, hemoptysis, pleuritic chest pain. SLEEP: Denies morning headaches, daytime somnolence or napping. Denies difficulty falling asleep, staying asleep, waking from sleep. Denies knowledge of snoring. GASTROINTESTINAL: Denies any type of dysphagia to either liquids or solids. Denies nausea, vomiting, pyrosis, early satiety, abdominal pain, diarrhea, constipation, or changes in stool consistency or caliber. Denies coffee-ground emesis, hematemesis, hematochezia, or melanotic stools. GENITOURINARY: Denies frequency, urgency, nocturia, hematuria or incontinence (Storage/Irritative symptoms.) Low urinary stream, straining to void, urinary intermittency or hesitancy, splitting of the voiding stream, terminal dribbling. ENDOCRINOLOGIC: Denies polyuria, polydipsia, polyphagia or heat/cold intolerances. HEMATOLOGIC: Denies thrombophilia/previous clots, or coagulopathy/bleeding disorders. ONCOLOGIC: Denies personal history of malignancy. DERMATOLOGIC: Reports redness to right LE, with pus noted, bilateral lymphedema noted PSYCHIATRIC: Denies any suicidal or homicidal ideation. Denies hallucinations. PHYSICAL EXAM GENERAL APPEARANCE: The patient is awake, alert, and oriented, in no acute cardiopulmonary distress. NEUROLOGICAL: Cranial nerves II-XII grossly intact. Motor is 5/5 in bilateral upper and lower extremities proximal to distal. No sensory deficits. HEENT: Face is symmetric. Pupils are equal and reactive. Extraocular movements are intact. NECK: Supple. No JVD. No thyromegaly. No submental, submandibular, pre- /postauricular, occipital or supraclavicular lymphadenopathy. CHEST: Normal chest expansion. No Telemetry. LUNGS: Absence of any rales, rhonchi or any wheezing. CARDIOVASCULAR: Regular. S1 and S2 normal. No appreciable rubs, murmurs or gallops. ABDOMEN: Soft, nontender, and nondistended. There is no rebound, voluntary guarding, or rigidity. : Deferred. No Bennett. EXTREMITIES: BLE lymphedema with right LE drainage noted SKIN: Lymphedema, RLE wound Vital Signs (last 8hr) Date Time Temp Pulse Resp B/P (MAP) Pulse Ox O2 Delivery O2 Flow Rate FiO2 09/24/24 12:30 78 19 158/71 95 Room Air 09/24/24 12:00 71 19 135/64 95 Room Air 09/24/24 11:45 86 19 181/55 96 Room Air 09/24/24 11:30 71 19 147/73 95 Room Air 09/24/24 11:15 66 18 154/90 95 Room Air 09/24/24 11:00 72 18 162/94 95 Room Air 09/24/24 11:00 97 Room Air* 0 09/24/24 10:59 97.5 69 18 160/89 95 Room Air 09/24/24 10:55 97.3 70 16 153/86 94 Room Air 09/24/24 10:50 97.3 76 16 156/84 94 Room Air 09/24/24 10:45 97.3 76 16 158/85 94 Room Air 09/24/24 10:40 97.3 82 15 157/87 94 Room Air 09/24/24 10:35 97.3 76 15 159/83 95 Room Air 21 09/24/24 10:30 97.3 79 15 157/86 97 Room Air 21 09/24/24 10:25 97.3 75 15 161/89 97 Room Air 21 09/24/24 10:20 97.3 72 15 159/87 97 Nasal Cannula 1.0 22 09/24/24 10:15 97.3 72 15 157/89 97 Nasal Cannula 2.0 24 09/24/24 10:10 97.3 68 15 152/85 97 Nasal Cannula 3.0 28 09/24/24 08:00 97.9 71 19 161/86 96 Room Air LABS: Laboratory: Test 09/23/24 09:41 Range/Units White Blood Count 7.7 4.8-10.8 K/uL Red Blood Count 4.38 L 4.50-6.20 MIL/uL Hemoglobin 10.4 L 14.0-18.0 g/dL Hematocrit 33.9 L 42-54 % Mean Corpuscular Volume 77.4 L 79-99 fL Mean Corpuscular Hemoglobin 23.7 L 27.0-33.0 pg Mean Corpuscular Hemoglobin Concent 30.7 L 32.0-36.0 g/dL Red Cell Distribution Width 15.1 11.0-15.5 % Platelet Count 391 130-400 K/uL Mean Platelet Volume 8.1 7.5-10.5 fL Immature Granulocyte % (Auto) 1.2 H 0-1 % Neutrophils (%) (Auto) 63.3 40.0-77.0 % Lymphocytes (%) (Auto) 17.4 L 21.0-51.0 % Monocytes (%) (Auto) 14.1 H 3.0-13.0 % Eosinophils (%) (Auto) 3.2 0.0-8.0 % Basophils (%) (Auto) 0.8 0.0-5.0 % Neutrophils # (Auto) 4.9 1.8-7.7 K/uL Lymphocytes # (Auto) 1.4 1.0-4.8 K/uL Monocytes # (Auto) 1.1 H 0.1-1.0 K/uL Eosinophils # (Auto) 0.25 0.00-0.70 K/uL Basophils # (Auto) 0.06 0.00-0.20 K/uL Absolute Immature Granulocyte (auto 0.09 0-1 K/uL Nucleated Red Blood Cells 0.0 0.0-0.19 % Sodium Level 144 136-145 mmol/L Potassium Level 3.6 3.5-5.1 mmol/L Chloride Level 106 101-111 mmol/L Carbon Dioxide Level 32 21-32 mmol/L Blood Urea Nitrogen 12 7-18 mg/dL Creatinine 1.1 0.5-1.3 mg/dL Glomerular Filtration Rate Calc 82 >90 mL/min Random Glucose 99 70-105 mg/dL Total Calcium 8.8 8.5-10.1 mg/dL Total Bilirubin 0.3 0.2-1.0 mg/dL Aspartate Amino Transf (AST/SGOT) 26 10-37 U/L Alanine Aminotransferase (ALT/SGPT) 25 12-78 U/L Alkaline Phosphatase 140 H 50-136 U/L Total Protein 7.0 6.0-8.3 g/dL Albumin 2.2 L 3.5-5.0 g/dL Vancomycin Level Trough 22.1 H 10.0-20.0 UG/ML Current Medications Medications (Trade) Dose Ordered Sig/Enio Route PRN Reason Start Time Stop Time Status Last Admin Dose Admin Acetaminophen (TYLenol 500MG TAB) 500 mg Q6H PRN PO MILD PAIN (1-3) 09/19/24 14:00 10/19/24 13:59 Aspirin (Aspirin 81mg Ec Tab) 81 mg DAILY PO 09/23/24 09:00 10/23/24 08:59 09/24/24 11:23 81 MG Brimonidine Tartrate (Alphagan P) 1 DROP OS HS HS OS 09/22/24 21:00 10/22/24 20:59 Bupropion HCl (WellBUTrin SR 150MG) 300 mg DAILY PO 09/20/24 09:00 10/20/24 08:59 09/24/24 11:23 300 MG Cefazolin Sodium (Ancef) 2 gm Q8H IVPB 09/23/24 13:30 10/03/24 13:29 09/24/24 13:39 2 GM Cefepime HCl (MAXipime 1 GM vial) 1 gm ONCE IVPB 09/19/24 11:00 09/19/24 10:54 DC Cefepime HCl (MAXipime 2 gm vial) 2 gm Q8H IVPB 09/19/24 14:00 09/19/24 14:08 DC Cefepime HCl (MAXipime 2 gm vial) 2 gm Q8H IVPB 09/19/24 19:00 09/23/24 03:37 DC 09/22/24 21:07 2 GM Cefepime HCl (MAXipime 2 gm vial) 2 gm Q8H IVPB 09/23/24 06:00 09/23/24 13:11 DC 09/23/24 05:31 2 GM Citalopram Hydrobromide (CeleXA 20MG TAB) 90 mg DAILY PO 09/23/24 09:00 10/23/24 08:59 09/24/24 11:24 90 MG Enoxaparin Sodium (Lovenox (Pharmacy To Dose)) 1 unit Q24H SQ 09/19/24 14:00 09/19/24 14:02 DC Enoxaparin Sodium (Lovenox) 40 mg BID SQ 09/19/24 21:00 10/19/24 20:59 09/24/24 11:26 40 MG Famotidine (Pepcid 20mg Tab) 20 mg BID PO 09/19/24 21:00 10/19/24 20:59 09/24/24 11:23 20 MG Ferrous Sulfate (Ferrous Sulfate) 325 mg HS PO 09/20/24 21:00 10/20/24 20:59 09/23/24 20:36 325 MG Furosemide (LASix 40MG TAB) 40 mg DAILY PO 09/21/24 09:00 10/21/24 08:59 09/24/24 11:23 40 MG Home Med (Home Medication) (Timolol Maleate 1 DROP) DAILY OS 09/20/24 09:00 10/20/24 08:59 Hydralazine HCl ([id number] TAB) 25 mg TID PO 09/23/24 14:00 10/23/24 13:59 09/24/24 11:23 25 MG Hydralazine HCl ([id number] TAB) 50 mg BID PO 09/22/24 21:00 09/23/24 11:24 DC 09/23/24 08:51 50 MG Latanoprost (Xalatan) 1 DROP OS HS HS OS 09/22/24 21:00 10/22/24 20:59 Levothyroxine Sodium (SYNTHroid 25MCG TAB) 25 mcg SYN PO 09/21/24 06:30 10/21/24 06:29 09/23/24 05:31 25 MCG Lorazepam (AtiVAN) 1 mg Q6H PRN PO anxiety 09/23/24 19:00 10/23/24 18:59 09/23/24 20:36 1 MG Losartan Potassium (CozAAR 100MG TAB) 100 mg DAILY PO 09/21/24 09:00 10/21/24 08:59 09/24/24 11:23 100 MG Morphine Sulfate (morPHINE 2MG SYG) 2 mg Q4H PRN IVP SEVERE PAIN (7-10) 09/19/24 14:00 09/26/24 13:59 Ondansetron HCl (zoFRAN 4MG INJ) 4 mg Q6H PRN IVP NAUSEA/VOMITING 09/19/24 14:00 10/19/24 13:59 Potassium Chloride 100 ml @ 100 mls/hr AD PRN IV POTASSIUM PROTOCOL 09/20/24 09:00 10/20/24 08:59 Potassium Chloride (K-Dur/Klor-Con 20meq) 20 meq AD PRN PO POTASSIUM PROTOCOL 09/20/24 09:00 10/20/24 08:59 Potassium Chloride (KCl 10% Elixir 20meq/15ml) 20 meq AD PRN PO POTASSIUM PROTOCOL 09/20/24 09:00 10/20/24 08:59 Sennosides (Senna) 2 tab BID PO 09/22/24 21:00 10/22/24 20:59 09/24/24 11:24 2 TAB Vancomycin HCl 250 ml @ 125 mls/hr Q12H IV 09/19/24 23:00 09/21/24 10:45 DC 09/20/24 22:56 125 MLS/HR Vancomycin HCl 250 ml @ 125 mls/hr Q12H IV 09/21/24 11:00 09/23/24 10:39 DC 09/22/24 23:04 125 MLS/HR Vancomycin HCl 250 ml @ 125 mls/hr Q12H IV 09/23/24 23:00 09/23/24 13:11 DC Vancomycin HCl (Vancomycin Protocol) 1 each AD IV 09/19/24 14:00 09/23/24 13:11 DC DIAGNOSTICS / RADIOLOGY: [ ] ASSESSMENT: Right lower extremity cellulitis with abscess, improving POA Morbid obesity, BMI 48.8 kg/M2 History of bilateral lower extremity lymphedema Hypertension Anemia Hypothyroidism PLAN:- The patient remains admitted on the medical surgical floor. Right lower extremity cellulitis with abscess, POA * Aerobic and anaerobic wound culture is positive with Staphylococcus aureus. Infectious disease consulted, Discontinue vancomycin and start cefazolin. * Consult surgery, we will continue to follow recommendations * Continue with heart healthy diet. * Continue with hypertension management IV hydralazine p.r.n. * Continue with pain management * GI prophylaxis famotidine 20 mg p.o. b.i.d. daily * DVT prophylaxis with Lovenox 30 mg subQ daily ATTESTATION BY PHYSICIAN I have seen and examined the patient. I reviewed the documentation, medical deci ladonna making, and treatment plan as noted by the resident provider above. I agree with the findings and plan of care. Kaleigh Tobar MD, GERARDO MD Sep 24, 2024 14:00
[2024-09-24] MEDS: hydrALAZine 20MG/ML VIAL IV PRN (17:13)
--- NOTE | 2024-09-24 17:37 | NUR ---
Patient noted with mild-moderate bleeding to right lateral lower extremity incision site. Post op dressing changed due to being saturated with blood. Clean, 4x4 gauze with pressure dressing applied over incision site. Charge nurse Kevin aware, patient denies any discomfort or pain at this time. Vitals as charted, will follow up with Dr. Prado.
[2024-09-24] MEDS: acetaMINOPHEN 500 MG TABLET PO PRN (21:26)
--- NOTE | 2024-09-24 21:42 | PN ---
INFECTIOUS DISEASE FOLLOWUP NOTE DATE OF SERVICE: 09/24/2024 SUBJECTIVE: The patient is seen and examined at bedside today. The patient has no fever, no chills. No nausea, no vomiting. Still has pain to the right leg. No palpitation, no orthopnea. Denied depression. No suicidal ideation. No dysuria or urinary frequency. PHYSICAL EXAMINATION: VITAL SIGNS: Temperature 97.3. EYES: No icterus. Pupils equal and reactive. HENT: No oral thrush seen. Moist oral mucosa. NECK: Supple, no JVD or thyromegaly. LUNGS: Good air entry. No rales, no rhonchi. CARDIOVASCULAR: S1, S2 regular. No murmur heard. ABDOMEN: Obese, soft, nontender. Bowel sounds present. CENTRAL NERVOUS SYSTEM: Awake, alert, oriented x 3. No focal deficits. SKIN: No rashes, no itchiness. LYMPHATIC: Has inguinal lymphadenopathy. BACK: No deformity, no pressure ulcer. EXTREMITIES: Area of cellulitis involving the right lower leg. ASSESSMENT: A 49-year-old male with multiple problems which include: * Right lower leg abscess. * Lymphedema. * Right lower extremity cellulitis. * Morbid obesity. * Obstructive sleep apnea. PLAN: * Continue wound care. * Continue cefazolin. * Continue pain management. * Continue DVT prophylaxis. * Monitor electrolytes. * Continue nutritional support. TID: [id number] RECEIPT: [id number]
[2024-09-25] VITALS (7 sets, daily range): BP systolic 141–164; BP diastolic 81–91; PULSE 66–79; RESP 18–20; TEMP 97.6–98; O2SAT 97
[2024-09-25 04:49] LABS: BASOPHILS # (AUTO) 0.07 K/uL (0.00-0.20); BASOPHILS % (AUTO) 0.8 % (0.0-5.0); EOSINOPHILS # (AUTO) 0.38 K/uL (0.00-0.70); EOSINOPHILS % (AUTO) 4.1 % (0.0-8.0); IMMATURE GRANULOCYTE ABSOLUTE 0.13 K/uL (0-1); LYMPHOCYTES # (AUTO) 1.9 K/uL (1.0-4.8); LYMPHOCYTES % (AUTO) 20.8 % (21.0-51.0); MEAN CORPUSCULAR HEMOGLOBIN 23.6 pg (27.0-33.0); MEAN CORPUSCULAR HGB CONC 29.7 g/dL (32.0-36.0); MEAN CORPUSCULAR VOLUME 79.4 fL (79-99); MONOCYTES # (AUTO) 1.2 K/uL (0.1-1.0); MONOCYTES % (AUTO) 12.5 % (3.0-13.0); NEUTROPHILS # (AUTO) 5.6 K/uL (1.8-7.7); NEUTROPHILS % (AUTO) 60.4 % (40.0-77.0); PLATELET COUNT (AUTO) 404 K/uL (130-400); RED BLOOD CELL COUNT(AUTO) 4.41 MIL/uL (4.50-6.20); RED CELL DISTRIBUTION WIDTH 15.2 % (11.0-15.5); WHITE BLOOD COUNT (AUTO) 9.3 K/uL (4.8-10.8)
[2024-09-25 05:07] LABS: ALBUMIN 2.2 g/dL (3.5-5.0); BILIRUBIN,TOTAL 0.3 mg/dL (0.2-1.0); POTASSIUM 4.4 mmol/L (3.5-5.1)
--- NOTE | 2024-09-25 10:39 | PN ---
This is a 49-year-old male postop day one for I and D to right lower extremity abscess Interval history: This 49-year-old male seen in his room resting WBCs 9.3 with a hemoglobin of 10.4 No significant discomfort noted Packing in place to lower extremity Cultures pending Physical exam General: Awake alert and oriented Heart: Regular rate and rhythm} Lungs: Clear to auscultation no distress Abdomen: [Soft, nontender, nondistended Left lower extremity with packing in place Assessment : This is a 49-year-old male status post I and to right lower extremity Plan: Surgical team to recommend case management consult for potential home health and wound care to the right lower extremity Continue with IV antibiotics Family to be instructed on appropriate wound care Dr. Prado to be updated in patient's status Vitals/Labs Vital Signs Date Time Temp Pulse Resp B/P (MAP) Pulse Ox O2 Delivery O2 Flow Rate FiO2 09/25/24 09:05 97 Room Air* 0 21 09/25/24 07:35 97.9 78 18 164/81 Laboratory Tests 09/25/24 04:22 Medications Current Medications Vancomycin HCl 1 gm ONCE ONCE IV Last administered on 09/19/24at 11:32; Start 09/19/24 at 11:00; Stop 09/19/24 at 11:01; Status DC Cefepime HCl 1 gm ONCE IVPB; Start 09/19/24 at 11:00; Stop 09/19/24 at 10:54; Status DC Cefepime HCl 1 gm ONCE ONCE IVPB Last administered on 09/19/24at 11:06; Start 09/19/24 at 11:00; Stop 09/19/24 at 11:01; Status DC Cefepime HCl 2 gm Q8H IVPB; Start 09/19/24 at 14:00; Stop 09/19/24 at 14:08; Status DC Vancomycin HCl 1 each AD IV; Start 09/19/24 at 14:00; Stop 09/23/24 at 13:11; Status DC Acetaminophen 500 mg Q6H PRN PO Last administered on 09/24/24at 21:26; Start 09/19/24 at 14:00; Stop 10/19/24 at 13:59 Ondansetron HCl 4 mg Q6H PRN IVP; Start 09/19/24 at 14:00; Stop 10/19/24 at 13:59 Morphine Sulfate 2 mg Q4H PRN IVP; Start 09/19/24 at 14:00; Stop 09/24/24 at 16:59; Status DC Famotidine 20 mg BID PO Last administered on 09/25/24at 08:28; Start 09/19/24 at 21:00; Stop 10/19/24 at 20:59 Enoxaparin Sodium 1 unit Q24H SQ; Start 09/19/24 at 14:00; Stop 09/19/24 at 14:02; Status DC Vancomycin HCl 250 ml @ 125 mls/hr Q12H IV Last administered on 09/20/24at 22:56; Start 09/19/24 at 23:00; Stop 09/21/24 at 10:45; Status DC Enoxaparin Sodium 40 mg BID SQ Last administered on 09/25/24at 08:29; Start 09/19/24 at 21:00; Stop 10/19/24 at 20:59 Cefepime HCl 2 gm Q8H IVPB Last administered on 09/22/24at 21:07; Start 09/19/24 at 19:00; Stop 09/23/24 at 03:37; Status DC Potassium Chloride 40 meq ONCE ONCE PO Last administered on 09/20/24at 06:21; Start 09/20/24 at 06:30; Stop 09/20/24 at 06:31; Status DC Bupropion HCl 300 mg DAILY PO Last administered on 09/25/24at 08:28; Start 09/20/24 at 09:00; Stop 10/20/24 at 08:59 Ferrous Sulfate 325 mg HS PO Last administered on 09/24/24at 20:28; Start 09/20/24 at 21:00; Stop 10/20/24 at 20:59 Levothyroxine Sodium 25 mcg SYN PO Last administered on 09/25/24at 05:28; Start 09/21/24 at 06:30; Stop 10/21/24 at 06:29 Home Med (Timolol Maleate 1 DROP) DAILY OS; Start 09/20/24 at 09:00; Stop 10/20/24 at 08:59 Potassium Chloride 100 ml @ 100 mls/hr AD PRN IV; Start 09/20/24 at 09:00; Stop 10/20/24 at 08:59 Potassium Chloride 20 meq AD PRN PO; Start 09/20/24 at 09:00; Stop 10/20/24 at 08:59 Potassium Chloride 20 meq AD PRN PO; Start 09/20/24 at 09:00; Stop 10/20/24 at 08:59 Furosemide 40 mg DAILY PO Last administered on 09/25/24at 08:28; Start 09/21/24 at 09:00; Stop 10/21/24 at 08:59 Losartan Potassium 100 mg DAILY PO Last administered on 09/25/24at 08:28; Start 09/21/24 at 09:00; Stop 10/21/24 at 08:59 Vancomycin HCl 250 ml @ 125 mls/hr Q12H IV Last administered on 09/22/24at 23:04; Start 09/21/24 at 11:00; Stop 09/23/24 at 10:39; Status DC Aspirin 81 mg DAILY PO Last administered on 09/25/24at 08:28; Start 09/23/24 at 09:00; Stop 10/23/24 at 08:59 Hydralazine HCl 50 mg BID PO Last administered on 09/23/24at 08:51; Start 09/22/24 at 21:00; Stop 09/23/24 at 11:24; Status DC Citalopram Hydrobromide 90 mg DAILY PO Last administered on 09/25/24at 08:28; Start 09/23/24 at 09:00; Stop 10/23/24 at 08:59 Brimonidine Tartrate 1 DROP OS HS HS OS; Start 09/22/24 at 21:00; Stop 10/22/24 at 20:59 Latanoprost 1 DROP OS HS HS OS; Start 09/22/24 at 21:00; Stop 10/22/24 at 20:59 Sennosides 2 tab BID PO Last administered on 09/24/24at 20:29; Start 09/22/24 at 21:00; Stop 10/22/24 at 20:59 Cefepime HCl 2 gm Q8H IVPB Last administered on 09/23/24at 05:31; Start 09/23/24 at 06:00; Stop 09/23/24 at 13:11; Status DC Vancomycin HCl 250 ml @ 125 mls/hr Q12H IV; Start 09/23/24 at 23:00; Stop 09/23/24 at 13:11; Status DC Hydralazine HCl 25 mg TID PO Last administered on 09/25/24at 08:28; Start 09/23/24 at 14:00; Stop 09/25/24 at 10:33; Status DC Cefazolin Sodium 2 gm Q8H IVPB Last administered on 09/25/24at 05:28; Start 09/23/24 at 13:30; Stop 10/03/24 at 13:29 Lorazepam 1 mg Q6H PRN PO Last administered on 09/24/24at 21:26; Start 09/23/24 at 19:00; Stop 10/23/24 at 18:59 Lidocaine HCl 100 mg STK-MED ONCE .ROUTE; Start 09/24/24 at 07:53; Stop 09/24/24 at 07:59; Status DC Midazolam HCl 2 mg STK-MED ONCE .ROUTE; Start 09/24/24 at 07:54; Stop 09/24/24 at 07:59; Status DC Propofol 200 mg STK-MED ONCE IV; Start 09/24/24 at 07:54; Stop 09/24/24 at 07:59; Status DC Rocuronium Bruc[place] 50 mg STK-MED ONCE .ROUTE; Start 09/24/24 at 07:54; Stop 09/24/24 at 07:59; Status DC Fentanyl Citrate 100 mcg STK-MED ONCE .ROUTE; Start 09/24/24 at 07:54; Stop 09/24/24 at 07:59; Status DC Bupivacaine HCl 5 mg STK-MED ONCE .ROUTE Last administered on 09/24/24at 09:53; Start 09/24/24 at 09:17; Stop 09/24/24 at 09:18; Status DC Ketamine HCl 50 mg STK-MED ONCE .ROUTE; Start 09/24/24 at 09:26; Stop 09/24/24 at 09:26; Status DC Glycopyrrolate 1 mg STK-MED ONCE .ROUTE; Start 09/24/24 at 09:27; Stop 09/24/24 at 09:27; Status DC Albuterol Sulfate 1 inh STK-MED ONCE IH; Start 09/24/24 at 09:37; Stop 09/24/24 at 09:37; Status DC Midazolam HCl 2 mg STK-MED ONCE .ROUTE; Start 09/24/24 at 09:53; Stop 09/24/24 at 09:54; Status DC Hydralazine HCl 10 mg Q6H PRN IV Last administered on 09/24/24at 17:13; Start 09/24/24 at 17:00; Stop 10/24/24 at 16:59 Hydralazine HCl 50 mg BID PO; Start 09/25/24 at 21:00; Stop 10/23/24 at 13:59 Hydralazine HCl 25 mg ONCE ONCE PO; Start 09/25/24 at 12:30; Stop 09/25/24 at 12:31 THEODORE SONI Jr. Sep 25, 2024 10:39
[2024-09-25] MEDS: hydrALAZine 25MG TABLET PO ONE (12:42)
[2024-09-25 13:40] LABS: INR 1.07 (0.85-1.15); PROTHROMBIN TIME 11.9 SEC (9.6-11.6)
--- NOTE | 2024-09-25 14:58 | NUR ---
[facility] Follow-up: Patient re-assessed by wound healing team. See wound assessment. Assessment and recommendations provided to primary nurse. Education provided. Addendum: 09/26/24 at 1538 by GROVER HI RN RN/ Amended: Links added.
--- NOTE | 2024-09-25 15:15 | PN ---
[facility] PROGRESS NOTE Date of Service: Sep 25, 2024 Time of Service: 15:02 SUBJECTIVE: The patient is a 49-year-old male with a past medical history of bilateral lower limb lymphedema, hypertension, anemia, hypothyroidism presented to ED yesterday with a chief complaint of right lower extremity calf redness, greenish wound discharge and pain. It started with a small boil 3 days ago and became progressively worsened started draining yesterday. In the emergency department, serosanguineous discharge was noted. Labs were nonsignificant. He was started on cefepime and vancomycin. Ultrasound soft tissue lower extremity showed 10.3 cm long and 1.9 cm wide non drainable fluid collection on the posterolateral right calf with surrounding hyperemia, evolving abscess. He was admitted to [facility] on medical surgical floor for the management of right lower extremity cellulitis with abscess. 09/20/2024- patient was examined at bedside, lying comfortably, not in acute distress. The patient has a dressing over the draining abscess. No any acute overnight episodes, running slightly hypertensive. Labs: Hemoglobin 9.9, thrombocytosis with platelets 469, potassium 3.3, hemoglobin A1c 5.5. Per Dr. Lopez, the patient will be monitored for 24-48 hours for evolving abscess. If the condition not improve, exploration with drainage will be performed. ID recommendations are pending. 09/21/24- The patient was examined today at bedside, lying comfortably, not in acute distress. The abscess has significantly drained and appears to be improved. He has been running hypertensive with SBP in 150s and 160s. Home medications were resumed, we will closely monitor vitals. No any acute overnight episodes were noted. Per Surgery, no surgical intervention. We will continue with IV antibiotics Cefepime and Vancomycin today. 09/22/24- patient was evaluated in the room with his mother at bedside. I discussed lab results and culture results as patient is positive with Staphylococcus aureus on the wound culture. We will continue with current IV antibiotics. We are consulting Infectious Disease, pending to be seen. So far patient is afebrile. We will continue to monitor. 09/23/24 patient was evaluated in the room, mother at bedside. Patient has been evaluated by Infectious Disease who recommended to continue with vancomycin and cefepime. We will follow up with general surgeon on further recommendations. 09/24/24 the patient was seen this morning following incision and drainage of a right lower extremity abscess. The patient reports feeling significantly better and denies any pain. Vital signs are stable, although blood pressure is elevated at 161/86. The patient will be monitored closely to assess blood pressure trends and determine if antihypertensive medication is necessary to add. Laboratory results from today include: WBC: 7.7 Previously 8.2. Myoglobin: 10.4 Previously 10.1. Platelets: 391 previously 385. Sodium: 144 Previously 142. Potassium 3.6 previously 3.7. Creatinine: 1.1. The abscess culture is positive for Staphylococcus areas. Infectious Disease has discontinued vancomycin and initiated cefazolin therapy. Patient will remain under observation with ongoing management per Infectious Disease and General surgery recommendations. 09/25/24 the patient was seen this morning at the [facility] and is alert and oriented to person, place, and time. Vital signs are stable. The patient's hydralazine dose was adjusted from 25 mg t.i.d. to 50 mg b.i.d. the patient remains on IV cefazolin. Today's laboratory results are as follows: WBC 9.3, hemoglobin 10.4, platelets 404, sodium 141, potassium 4.4, creatinine 1.0, GFR 92. Infectious Disease has recommended placing a PICC line, and the patient will continue IV antibiotic therapy for 4 weeks. Case management is coordinating discharge to a care home facility to complete the treatment. REVIEW OF SYSTEMS CONSTITUTIONAL: Denies fevers, chills, or night sweats. No unintentional weight loss reported. NEUROLOGICAL: Denies headache, amaurosis fugax, motor weakness, sensory deficit, vertigo/spinning sensation, gait abnormalities, or tremors. ENT: No hearing loss, otalgia, otorrhea, rhinitis, rhinorrhea, hoarseness, or sore throat. CARDIOVASCULAR: Denies any exertional angina, dyspnea on exertion, orthopnea, paroxysmal nocturnal dyspnea, palpitations, life-threatening arrhythmias, claudication. PULMONARY: Denies any shortness of breath, cough, phlegm/sputum, hemoptysis, pleuritic chest pain. SLEEP: Denies morning headaches, daytime somnolence or napping. Denies difficulty falling asleep, staying asleep, waking from sleep. Denies knowledge of snoring. GASTROINTESTINAL: Denies any type of dysphagia to either liquids or solids. D enies nausea, vomiting, pyrosis, early satiety, abdominal pain, diarrhea, constipation, or changes in stool consistency or caliber. Denies coffee-ground emesis, hematemesis, hematochezia, or melanotic stools. GENITOURINARY: Denies frequency, urgency, nocturia, hematuria or incontinence (Storage/Irritative symptoms.) Low urinary stream, straining to void, urinary intermittency or hesitancy, splitting of the voiding stream, terminal dribbling. ENDOCRINOLOGIC: Denies polyuria, polydipsia, polyphagia or heat/cold intolerances. HEMATOLOGIC: Denies thrombophilia/previous clots, or coagulopathy/bleeding disorders. ONCOLOGIC: Denies personal history of malignancy. DERMATOLOGIC: Reports redness to right LE, with pus noted, bilateral lymphedema noted PSYCHIATRIC: Denies any suicidal or homicidal ideation. Denies hallucinations. PHYSICAL EXAM GENERAL APPEARANCE: The patient is awake, alert, and oriented, in no acute cardiopulmonary distress. NEUROLOGICAL: Cranial nerves II-XII grossly intact. Motor is 5/5 in bilateral upper and lower extremities proximal to distal. No sensory deficits. HEENT: Face is symmetric. Pupils are equal and reactive. Extraocular movements are intact. NECK: Supple. No JVD. No thyromegaly. No submental, submandibular, pre- /postauricular, occipital or supraclavicular lymphadenopathy. CHEST: Normal chest expansion. No Telemetry. LUNGS: Absence of any rales, rhonchi or any wheezing. CARDIOVASCULAR: Regular. S1 and S2 normal. No appreciable rubs, murmurs or gallops. ABDOMEN: Soft, nontender, and nondistended. There is no rebound, voluntary guarding, or rigidity. : Deferred. No Bennett. EXTREMITIES: BLE lymphedema with right LE drainage noted SKIN: Lymphedema, RLE wound Vital Signs (last 8hr) Date Time Temp Pulse Resp B/P (MAP) Pulse Ox O2 Delivery O2 Flow Rate FiO2 09/25/24 11:59 97.5 77 18 141/86 98 Room Air 21 09/25/24 09:05 97 Room Air* 0 21 09/25/24 07:35 97.9 78 18 164/81 100 Room Air 21 LABS: Laboratory: Test 09/25/24 13:20 09/25/24 04:22 Range/Units Prothrombin Time 11.9 H 9.6-11.6 SEC Prothromb Time International Ratio 1.07 0.85-1.15 White Blood Count 9.3 4.8-10.8 K/uL Red Blood Count 4.41 L 4.50-6.20 MIL/uL Hemoglobin 10.4 L 14.0-18.0 g/dL Hematocrit 35.0 L 42-54 % Mean Corpuscular Volume 79.4 79-99 fL Mean Corpuscular Hemoglobin 23.6 L 27.0-33.0 pg Mean Corpuscular Hemoglobin Concent 29.7 L 32.0-36.0 g/dL Red Cell Distribution Width 15.2 11.0-15.5 % Platelet Count 404 H 130-400 K/uL Mean Platelet Volume 8.5 7.5-10.5 fL Immature Granulocyte % (Auto) 1.4 H 0-1 % Neutrophils (%) (Auto) 60.4 40.0-77.0 % Lymphocytes (%) (Auto) 20.8 L 21.0-51.0 % Monocytes (%) (Auto) 12.5 3.0-13.0 % Eosinophils (%) (Auto) 4.1 0.0-8.0 % Basophils (%) (Auto) 0.8 0.0-5.0 % Neutrophils # (Auto) 5.6 1.8-7.7 K/uL Lymphocytes # (Auto) 1.9 1.0-4.8 K/uL Monocytes # (Auto) 1.2 H 0.1-1.0 K/uL Eosinophils # (Auto) 0.38 0.00-0.70 K/uL Basophils # (Auto) 0.07 0.00-0.20 K/uL Absolute Immature Granulocyte (auto 0.13 0-1 K/uL Nucleated Red Blood Cells 0.0 0.0-0.19 % Sodium Level 141 136-145 mmol/L Potassium Level 4.4 3.5-5.1 mmol/L Chloride Level 104 101-111 mmol/L Carbon Dioxide Level 31 21-32 mmol/L Blood Urea Nitrogen 14 7-18 mg/dL Creatinine 1.0 0.5-1.3 mg/dL Glomerular Filtration Rate Calc 92 >90 mL/min Random Glucose 87 70-105 mg/dL Total Calcium 8.8 8.5-10.1 mg/dL Total Bilirubin 0.3 0.2-1.0 mg/dL Aspartate Amino Transf (AST/SGOT) 25 10-37 U/L Alanine Aminotransferase (ALT/SGPT) 19 12-78 U/L Alkaline Phosphatase 142 H 50-136 U/L Total Protein 7.0 6.0-8.3 g/dL Albumin 2.2 L 3.5-5.0 g/dL Current Medications Medications (Trade) Dose Ordered Sig/Enio Route PRN Reason Start Time Stop Time Status Last Admin Dose Admin Acetaminophen (TYLenol 500MG TAB) 500 mg Q6H PRN PO MILD PAIN (1-3) 09/19/24 14:00 10/19/24 13:59 09/24/24 21:26 500 MG Aspirin (Aspirin 81mg Ec Tab) 81 mg DAILY PO 09/23/24 09:00 10/23/24 08:59 09/25/24 08:28 81 MG Brimonidine Tartrate (Alphagan P) 1 DROP OS HS HS OS 09/22/24 21:00 10/22/24 20:59 Bupropion HCl (WellBUTrin SR 150MG) 300 mg DAILY PO 09/20/24 09:00 10/20/24 08:59 09/25/24 08:28 300 MG Cefazolin Sodium (Ancef) 2 gm Q8H IVPB 09/23/24 13:30 10/03/24 13:29 09/25/24 12:42 2 GM Cefepime HCl (MAXipime 1 GM vial) 1 gm ONCE IVPB 09/19/24 11:00 09/19/24 10:54 DC Cefepime HCl (MAXipime 2 gm vial) 2 gm Q8H IVPB 09/19/24 14:00 09/19/24 14:08 DC Cefepime HCl (MAXipime 2 gm vial) 2 gm Q8H IVPB 09/19/24 19:00 09/23/24 03:37 DC 09/22/24 21:07 2 GM Cefepime HCl (MAXipime 2 gm vial) 2 gm Q8H IVPB 09/23/24 06:00 09/23/24 13:11 DC 09/23/24 05:31 2 GM Citalopram Hydrobromide (CeleXA 20MG TAB) 90 mg DAILY PO 09/23/24 09:00 10/23/24 08:59 09/25/24 08:28 90 MG Enoxaparin Sodium (Lovenox (Pharmacy To Dose)) 1 unit Q24H SQ 09/19/24 14:00 09/19/24 14:02 DC Enoxaparin Sodium (Lovenox) 40 mg BID SQ 09/19/24 21:00 10/19/24 20:59 09/25/24 08:29 40 MG Famotidine (Pepcid 20mg Tab) 20 mg BID PO 09/19/24 21:00 10/19/24 20:59 09/25/24 08:28 20 MG Ferrous Sulfate (Ferrous Sulfate) 325 mg HS PO 09/20/24 21:00 10/20/24 20:59 09/24/24 20:28 325 MG Furosemide (LASix 40MG TAB) 40 mg DAILY PO 09/21/24 09:00 10/21/24 08:59 09/25/24 08:28 40 MG Home Med (Home Medication) (Timolol Maleate 1 DROP) DAILY OS 09/20/24 09:00 10/20/24 08:59 Hydralazine HCl (APRESOLine 20MG INJ) 10 mg Q6H PRN IV ADMINISTER FOR SBP > 160 09/24/24 17:00 10/24/24 16:59 09/24/24 17:13 10 MG Hydralazine HCl ([id number] TAB) 25 mg TID PO 09/23/24 14:00 09/25/24 10:33 DC 09/25/24 08:28 25 MG Hydralazine HCl ([id number] TAB) 50 mg BID PO 09/22/24 21:00 09/23/24 11:24 DC 09/23/24 08:51 50 MG Hydralazine HCl ([id number] TAB) 50 mg BID PO 09/25/24 21:00 10/23/24 13:59 Latanoprost (Xalatan) 1 DROP OS HS HS OS 09/22/24 21:00 10/22/24 20:59 Levothyroxine Sodium (SYNTHroid 25MCG TAB) 25 mcg SYN PO 09/21/24 06:30 10/21/24 06:29 09/25/24 05:28 25 MCG Lorazepam (AtiVAN) 1 mg Q6H PRN PO anxiety 09/23/24 19:00 10/23/24 18:59 09/24/24 21:26 1 MG Losartan Potassium (CozAAR 100MG TAB) 100 mg DAILY PO 09/21/24 09:00 10/21/24 08:59 09/25/24 08:28 100 MG Morphine Sulfate (morPHINE 2MG SYG) 2 mg Q4H PRN IVP SEVERE PAIN (7-10) 09/19/24 14:00 09/24/24 16:59 DC Ondansetron HCl (zoFRAN 4MG INJ) 4 mg Q6H PRN IVP NAUSEA/VOMITING 09/19/24 14:00 10/19/24 13:59 Potassium Chloride 100 ml @ 100 mls/hr AD PRN IV POTASSIUM PROTOCOL 09/20/24 09:00 10/20/24 08:59 Potassium Chloride (K-Dur/Klor-Con 20meq) 20 meq AD PRN PO POTASSIUM PROTOCOL 09/20/24 09:00 10/20/24 08:59 Potassium Chloride (KCl 10% Elixir 20meq/15ml) 20 meq AD PRN PO POTASSIUM PROTOCOL 09/20/24 09:00 10/20/24 08:59 Sennosides (Senna) 2 tab BID PO 09/22/24 21:00 10/22/24 20:59 09/24/24 20:29 2 TAB Vancomycin HCl 250 ml @ 125 mls/hr Q12H IV 09/19/24 23:00 09/21/24 10:45 DC 09/20/24 22:56 125 MLS/HR Vancomycin HCl 250 ml @ 125 mls/hr Q12H IV 09/21/24 11:00 09/23/24 10:39 DC 09/22/24 23:04 125 MLS/HR Vancomycin HCl 250 ml @ 125 mls/hr Q12H IV 09/23/24 23:00 09/23/24 13:11 DC Vancomycin HCl (Vancomycin Protocol) 1 each AD IV 09/19/24 14:00 09/23/24 13:11 DC DIAGNOSTICS / RADIOLOGY: [ ] ASSESSMENT: Right lower extremity cellulitis with abscess, improving POA Morbid obesity, BMI 48.8 kg/M2 History of bilateral lower extremity lymphedema Hypertension Anemia Hypothyroidism PLAN:- The patient remains admitted on the medical surgical floor. Right lower extremity cellulitis with abscess, POA * Aerobic and anaerobic wound culture is positive with Staphylococcus aureus. Infectious disease consulted, Discontinue vancomycin and start cefazolin. * Consult surgery, we will continue to follow recommendations * A PICC line will be placed to facilitate long-term antibiotic therapy * the patient is being evaluated by case management for transfer to [facility] to continue antibiotic treatment * Continue with heart healthy diet. * Continue with hypertension management IV hydralazine p.r.n. * Continue with pain management * GI prophylaxis famotidine 20 mg p.o. b.i.d. daily * DVT prophylaxis with Lovenox 30 mg subQ daily ATTESTATION BY PHYSICIAN I have seen and examined the patient. I reviewed the documentation, medical decision making, and treatment plan as noted by the resident provider above. I agree with the findings and plan of care. Kaleigh Tobar MD, GERARDO MD Sep 25, 2024 15:15
--- NOTE | 2024-09-25 16:59 | NUR ---
EDITH NOTE: [facility]ITH MET WITH PT MOTHER IN ROOM, DISCUSSED MD RECOMMENDATIONS FOR SHORT TERM PLACEMENT PT WILL NEED IV ABX X 4 WEEKS. GIVEN IN NETWORK FACILITIES, CONSENT SIGNED HENRIK FOR [facility] AND [facility]. CM SENT ORDER, CLINICALS, PASRR TO [facility] AND [facility] VIA SECURE EMAIL. CM SPOKE TO [facility] VISITED PATIENT, VERBALIZED PT WEIGHTS > 350LBS, PT CURRENTLY AT 398LBS, FACILITY ONLY ABLE TO ACCOMMODATE UP TO 350LBS. PT WAS IND PRIOR TO ADMISSION, PENDING PT EVAL, REP WILL LOOK AT PT EVAL ONCE DONE AND SEE IF FACILITY WILL BE ABLE TO MAKE EXCEPTIONS, IF UNABLE PLAN B IS [facility]. CM SENT PACKET TO [facility] VIA EMAIL. CM SPOKE TO [facility], MADE AWARE OF ABOVE, WILL EVALUATE PT, REP VERBALIZED THEY'RE ABLE TO ACCEPT UP TO 400LBS, BUT WOULD LIKE TO SEE ALSO IF PT ABLE TO MOVE/AMBULATE FIRST. PT PENDING PT EVAL AT THIS TIME, WILL SEND NOTES ONCE AVAILABLE. INSTRUCTED PRIMARY NURSE MATTHIAS TO START PT ON TELEM IN CASE PT NOT ON TELEM FOR [facility] PLACEMENT IF SNF UNABLE TO ACCEPT. PT PENDING TO SECURE FACILITY. DR VELASQUEZ UPDATED. CM TO CONTINUE TO FOLLOW UP. Addendum: 09/25/24 at 1705 by JOSE SONI LVN CM Amended: Links added.
--- NOTE | 2024-09-25 17:05 | PN ---
INFECTIOUS DISEASE PROGRESS NOTE Date of Service: Sep 25, 2024 SUBJECTIVE: This is a 49-year-old male patient with past medical history of chronic lymphedema who presented to the hospital with chief complaint of a right lower extremity draining wound and redness. A right lower extremity ultrasound done on admission showed a 10.3 x 1.9 cm nondrainable fluid collection on the posterolateral right calf suggestive of evolving abscess. General surgery was consulted and patient underwent an incision and drainage on 09/24/2024. Patient was seen and examined at bedside in room 406. Patient is awake, alert and oriented x3. Patient is status post incision and drainage of the right lower leg abscess day #1. No fever this morning, temperature is 97.9 and a WBC of 9.3. The wound culture from the right leg came back positive for methicillin sensitive Staphylococcus aureus. Patient continues on cefazolin 2 g IV every 8 hours. Case management to evaluate for referral to LTAC. We will continue to monitor patient's care. PHYSICAL EXAM EYES: Anicteric. Pupils equal and reactive. HENT: No oral thrush seen, moist Oral mucosa NECK: Supple, no JVD or thyromegaly. LUNGS: Good air entry. No rales, no rhonchi. CARDIOVASCULAR: S1, S2 regular. No murmur heard. ABDOMEN: Soft, non tender, bowel sounds present, no organomegaly CENTRAL NERVOUS SYSTEM: Awake, alert, oriented x 3. No focal deficits. SKIN: No rashes, no swelling. LYMPHATICS: No peripheral lymphadenopathy MUSCULOSKELETAL: No joint swelling, erythema or tenderness. EXTREMITIES: No cyanosis or clubbing BACK: No deformity, no pressure ulcer. GENITOURINARY: No dysuria or hematuria Vital Sign (Last 12 Hours) 09/25/24 09/25/24 09/25/24 09/25/24 07:35 09:05 11:59 15:15 Temp 97.9 97.5 97.9 Pulse 78 77 78 Resp 18 18 18 B/P (MAP) 164/81 141/86 154/83 Pulse Ox 100 97 98 97 O2 Delivery Room Air Room Air* Room Air Room Air O2 Flow Rate 0 FiO2 21 21 21 21 Intake & Output (last 24hrs) 09/24/24 09/24/24 09/25/24 15:00 23:00 07:00 Intake Total 100.0 ml 1000 ml 200.0 ml Output Total 400 ml 1800 ml 600 ml Balance -300.0 ml -800 ml -400.0 ml LABS: Laboratory: Test 09/25/24 13:20 09/25/24 04:22 Range/Units Prothrombin Time 11.9 H 9.6-11.6 SEC Prothromb Time International Ratio 1.07 0.85-1.15 White Blood Count 9.3 4.8-10.8 K/uL Red Blood Count 4.41 L 4.50-6.20 MIL/uL Hemoglobin 10.4 L 14.0-18.0 g/dL Hematocrit 35.0 L 42-54 % Mean Corpuscular Volume 79.4 79-99 fL Mean Corpuscular Hemoglobin 23.6 L 27.0-33.0 pg Mean Corpuscular Hemoglobin Concent 29.7 L 32.0-36.0 g/dL Red Cell Distribution Width 15.2 11.0-15.5 % Platelet Count 404 H 130-400 K/uL Mean Platelet Volume 8.5 7.5-10.5 fL Immature Granulocyte % (Auto) 1.4 H 0-1 % Neutrophils (%) (Auto) 60.4 40.0-77.0 % Lymphocytes (%) (Auto) 20.8 L 21.0-51.0 % Monocytes (%) (Auto) 12.5 3.0-13.0 % Eosinophils (%) (Auto) 4.1 0.0-8.0 % Basophils (%) (Auto) 0.8 0.0-5.0 % Neutrophils # (Auto) 5.6 1.8-7.7 K/uL Lymphocytes # (Auto) 1.9 1.0-4.8 K/uL Monocytes # (Auto) 1.2 H 0.1-1.0 K/uL Eosinophils # (Auto) 0.38 0.00-0.70 K/uL Basophils # (Auto) 0.07 0.00-0.20 K/uL Absolute Immature Granulocyte (auto 0.13 0-1 K/uL Nucleated Red Blood Cells 0.0 0.0-0.19 % Sodium Level 141 136-145 mmol/L Potassium Level 4.4 3.5-5.1 mmol/L Chloride Level 104 101-111 mmol/L Carbon Dioxide Level 31 21-32 mmol/L Blood Urea Nitrogen 14 7-18 mg/dL Creatinine 1.0 0.5-1.3 mg/dL Glomerular Filtration Rate Calc 92 >90 mL/min Random Glucose 87 70-105 mg/dL Total Calcium 8.8 8.5-10.1 mg/dL Total Bilirubin 0.3 0.2-1.0 mg/dL Aspartate Amino Transf (AST/SGOT) 25 10-37 U/L Alanine Aminotransferase (ALT/SGPT) 19 12-78 U/L Alkaline Phosphatase 142 H 50-136 U/L Total Protein 7.0 6.0-8.3 g/dL Albumin 2.2 L 3.5-5.0 g/dL DIAGNOSTICS / RADIOLOGY: PATIENT: RODRIGUE RICHARD ACCT: [id number] LOC: [facility] U: [id number] AGE/SX: 49/M ROOM: [facility] RE09/19/[address]: REMBERTO MAURER MD : [id number] BED: 1 DIS: STATUS: ADM IN TLOC: SPEC: [id number] DAVID: 09/19/24 STATUS: COMP REQ: [id number] RECD: 09/19/24 [facility] DR: LEVI DAIGLE AGPCNP SOURCE: LEG ENTR: 09/19/24-[address] [facility] [address]: JEFF RICHARDS MD SPDESC: REMBERTO GALLOWAY MD, MARIA E. FNP RODRIGUEZ, JOSE MARIANO MD ORDERED: LILIANA CULTURE, AEROBIC CULTURE Procedure Result Rock Date-Time ANAEROBIC CULTURE Final 09/23/24-832 MRL COLONY DESCRIPTION: REPORT 1: NO ANAEROBES AT 24-35 HOURS; STUDIES TO CONTINUE REPORT 2: NO ANAEROBES AT 48-59 HOURS; STUDIES TO CONTINUE REPORT 3: NO ANAEROBES AT 72-96 HOURS Test(s) performed by: [facility] [address] [facility] [address] AEROBIC CULTURE Final 09/22/24-09 MRL COLONY DESCRIPTION: REPORT 1: 1+ GRAM POSITIVE COCCI IN CLUSTERS STAPHYLOCOCCUS AUREUS SENSITIVITY TO FOLLOW REPORT 2: NO FURTHER WORK-UP DONE STAPHYLOCOCCUS AUREUS S. AUREUS M.I.C. RX --------- ---- ERYTHROMYCIN <=0.5 S GENTAMICIN <=4 S LEVOFLOXACIN >4 R VANCOMYCIN 1 S OXACILLIN ROLAN 1 S RIFAMPIN <=1 S PENICILLIN >8 Jonathan TRIMETHOPRIM/SUFLAMETHOXAZOLE <=0.5/9.5 S -- ASSESSMENT: Right lower leg abscess, s/p incision and drainage on 09/24/2024. Infection with methicillin sensitive Staphylococcus aureus. Bilateral lower extremity lymphedema. Morbid obesity. PLAN: Continue cefazolin2 g IV every8 hours. Continue wound care. Continue pain management. Continue GI prophylaxis. Case management to evaluate for referral to LTAC. We will monitor electrolytes. This case was reviewed and discussed with my supervising physician and the above assessment and plan was formulated and agreed upon. ATTESTATION BY PHYSICIAN I have seen and examined the patient. I reviewed the documentation, medical decision making, and treatment plan as noted by the mid-level provider above. I agree with the findings and plan of care. JEFF RICHARDS MD, MIRTA L [facility] Sep 25, 2024 17:05
[2024-09-25] MEDS: hydrALAZine 25MG TABLET PO SCH (20:01)
--- NOTE | 2024-09-25 20:11 | NUR ---
SYLWIA MARIE HELD PT HAD LARGE BOWEL MOVEMENT TODAY
[2024-09-26] VITALS (8 sets, daily range): BP systolic 132–162; BP diastolic 76–87; PULSE 67–80; RESP 18–20; TEMP 97.9–98.7; O2SAT 95–100
[2024-09-26 05:01] LABS: BASOPHILS # (AUTO) 0.09 K/uL (0.00-0.20); BASOPHILS % (AUTO) 0.9 % (0.0-5.0); EOSINOPHILS # (AUTO) 0.32 K/uL (0.00-0.70); EOSINOPHILS % (AUTO) 3.3 % (0.0-8.0); HEMATOCRIT 35.8 % (42-54); IMMATURE GRANULOCYTE ABSOLUTE 0.15 K/uL (0-1); LYMPHOCYTES # (AUTO) 2.4 K/uL (1.0-4.8); LYMPHOCYTES % (AUTO) 25.2 % (21.0-51.0); MEAN CORPUSCULAR HEMOGLOBIN 23.9 pg (27.0-33.0); MEAN CORPUSCULAR HGB CONC 30.2 g/dL (32.0-36.0); MEAN CORPUSCULAR VOLUME 79.4 fL (79-99); MONOCYTES # (AUTO) 1.2 K/uL (0.1-1.0); MONOCYTES % (AUTO) 12.7 % (3.0-13.0); NEUTROPHILS # (AUTO) 5.4 K/uL (1.8-7.7); NEUTROPHILS % (AUTO) 56.3 % (40.0-77.0); PLATELET COUNT (AUTO) 417 K/uL (130-400); RED BLOOD CELL COUNT(AUTO) 4.51 MIL/uL (4.50-6.20); RED CELL DISTRIBUTION WIDTH 15.5 % (11.0-15.5); WHITE BLOOD COUNT (AUTO) 9.7 K/uL (4.8-10.8)
[2024-09-26 05:17] LABS: ALBUMIN 2.4 g/dL (3.5-5.0); BILIRUBIN,TOTAL 0.2 mg/dL (0.2-1.0); CREATININE 1.1 mg/dL (0.5-1.3); POTASSIUM 4.2 mmol/L (3.5-5.1); TOTAL PROTEIN, SERUM 7.2 g/dL (6.0-8.3)
[2024-09-26] MEDS: citaLOPram 20 MG TABLET PO SCH (09:23)
--- NOTE | 2024-09-26 09:54 | NUR ---
CM NOTE: [facility] ACCEPTANCE CM SPOKE TO AYDE RECEIVED PT EVAL NOTES, PER REP PT HAS ACCEPTANCE. EMS ARRANGED FOR TODAY IN CASE NEEDED, PRIMARY NURSE TO CALL [facility] ONCE PT READY TO DC. PRIMARY NURSE MADE AWARE VIA NURSING COMMUNICATION ORDER. DR VELASQUEZ UPDATED. CM TO CONTINUE TO FOLLOW UP.
--- NOTE | 2024-09-26 10:04 | NUR ---
WOUND CARE PROVIDED TO RIGHT LOWER EXT. PER MD ORDERS. PATIENT DENIES PAIN AT THIS TIME. MODERATE SEROSANGUINEOUS DRAINAGE NOTED, SURROUNDING WOUND BED FREE FROM ERYTHEMA OR WARMTH.
--- NOTE | 2024-09-26 14:59 | PN ---
[facility] PROGRESS NOTE Date of Service: Sep 26, 2024 Time of Service: 14:51 SUBJECTIVE: The patient is a 49-year-old male with a past medical history of bilateral lower limb lymphedema, hypertension, anemia, hypothyroidism presented to ED yesterday with a chief complaint of right lower extremity calf redness, greenish wound discharge and pain. It started with a small boil 3 days ago and became progressively worsened started draining yesterday. In the emergency department, serosanguineous discharge was noted. Labs were nonsignificant. He was started on cefepime and vancomycin. Ultrasound soft tissue lower extremity showed 10.3 cm long and 1.9 cm wide non drainable fluid collection on the posterolateral right calf with surrounding hyperemia, evolving abscess. He was admitted to [facility] on medical surgical floor for the management of right lower extremity cellulitis with abscess. 09/20/2024- patient was examined at bedside, lying comfortably, not in acute distress. The patient has a dressing over the draining abscess. No any acute overnight episodes, running slightly hypertensive. Labs: Hemoglobin 9.9, thrombocytosis with platelets 469, potassium 3.3, hemoglobin A1c 5.5. Per Dr. Lopez, the patient will be monitored for 24-48 hours for evolving abscess. If the condition not improve, exploration with drainage will be performed. ID recommendations are pending. 09/21/24- The patient was examined today at bedside, lying comfortably, not in acute distress. The abscess has significantly drained and appears to be improved. He has been running hypertensive with SBP in 150s and 160s. Home medications were resumed, we will closely monitor vitals. No any acute overnight episodes were noted. Per Surgery, no surgical intervention. We will continue with IV antibiotics Cefepime and Vancomycin today. 09/22/24- patient was evaluated in the room with his mother at bedside. I discussed lab results and culture results as patient is positive with Staphylococcus aureus on the wound culture. We will continue with current IV antibiotics. We are consulting Infectious Disease, pending to be seen. So far patient is afebrile. We will continue to monitor. 09/23/24 patient was evaluated in the room, mother at bedside. Patient has been evaluated by Infectious Disease who recommended to continue with vancomycin and cefepime. We will follow up with general surgeon on further recommendations. 09/24/24 the patient was seen this morning following incision and drainage of a right lower extremity abscess. The patient reports feeling significantly better and denies any pain. Vital signs are stable, although blood pressure is elevated at 161/86. The patient will be monitored closely to assess blood pressure trends and determine if antihypertensive medication is necessary to add. Laboratory results from today include: WBC: 7.7 Previously 8.2. Myoglobin: 10.4 Previously 10.1. Platelets: 391 previously 385. Sodium: 144 Previously 142. Potassium 3.6 previously 3.7. Creatinine: 1.1. The abscess culture is positive for Staphylococcus areas. Infectious Disease has discontinued vancomycin and initiated cefazolin therapy. Patient will remain under observation with ongoing management per Infectious Disease and General surgery recommendations. 09/25/24 [facility] and is alert and oriented to person, place, and time. Vital signs are stable. The patient's hydralazine dose was adjusted from 25 mg t.i.d. to 50 mg b.i.d. the patient remains on IV cefazolin. Today's laboratory results are as follows: WBC 9.3, hemoglobin 10.4, platelets 404, sodium 141, potassium 4.4, creatinine 1.0, GFR 92. Infectious Disease has recommended placing a PICC line, and the patient will continue IV antibiotic therapy for 4 weeks. Case management is coordinating discharge to a group home facility to complete the treatment. 09/26/24 patient was visited this morning at bedside and is oriented to person, place, and time. Infectious Disease recommended continuing the antibiotic jaymie tment for the patient's condition. Consequently, the treatment plan has been approved for transfer to [facility]. This morning, the patient was informed that the best option for continuing treatment will be to transfer to a group home facility to complete 2 weeks of intravenous antibiotics, wound care, and physical therapy. These recommendation is due to the patient overweight status and lymphedema in both legs. The patient expresses preference to be discharged home and receive IV antibiotic therapy at a clinic. It was explained to the patient that if this option is chosen, I will care coverage we will only include IV therapy at the clinic and not wound care at home. As a result, family member specifically the patient's mother we will need to be trained to performed wound care at home. The family has not yet made a decision regarding the patient's discharge plan. Additionally, placement of a PICC line remains pending and must be completed before the patient can be discharged to either the SNF or home. From our perspective, the SNF is the most appropriate setting to ensure comprehensive care, including IV antibiotics, wound care, physical therapy. REVIEW OF SYSTEMS CONSTITUTIONAL: Denies fevers, chills, or night sweats. No unintentional weight loss reported. NEUROLOGICAL: Denies headache, amaurosis fugax, motor weakness, sensory deficit, vertigo/spinning sensation, gait abnormalities, or tremors. ENT: No hearing loss, otalgia, otorrhea, rhinitis, rhinorrhea, hoarseness, or sore throat. CARDIOVASCULAR: Denies any exertional angina, dyspnea on exertion, orthopnea, paroxysmal nocturnal dyspnea, palpitations, life-threatening arrhythmias, claudication. PULMONARY: Denies any shortness of breath, cough, phlegm/sputum, hemoptysis, pleuritic chest pain. SLEEP: Denies morning headaches, daytime somnolence or napping. Denies difficul ty falling asleep, staying asleep, waking from sleep. Denies knowledge of snoring. GASTROINTESTINAL: Denies any type of dysphagia to either liquids or solids. Denies nausea, vomiting, pyrosis, early satiety, abdominal pain, diarrhea, constipation, or changes in stool consistency or caliber. Denies coffee-ground emesis, hematemesis, hematochezia, or melanotic stools. GENITOURINARY: Denies frequency, urgency, nocturia, hematuria or incontinence (Storage/Irritative symptoms.) Low urinary stream, straining to void, urinary intermittency or hesitancy, splitting of the voiding stream, terminal dribbling. ENDOCRINOLOGIC: Denies polyuria, polydipsia, polyphagia or heat/cold intole rances. HEMATOLOGIC: Denies thrombophilia/previous clots, or coagulopathy/bleeding disorders. ONCOLOGIC: Denies personal history of malignancy. DERMATOLOGIC: Reports redness to right LE, with pus noted, bilateral lymphedema noted PSYCHIATRIC: Denies any suicidal or homicidal ideation. Denies hallucinations. PHYSICAL EXAM GENERAL APPEARANCE: The patient is awake, alert, and oriented, in no acute cardiopulmonary distress. NEUROLOGICAL: Cranial nerves II-XII grossly intact. Motor is 5/5 in bilateral upper and lower extremities proximal to distal. No sensory deficits. HEENT: Face is symmetric. Pupils are equal and reactive. Extraocular movements are intact. NECK: Supple. No JVD. No thyromegaly. No submental, submandibular, pre-/p ostauricular, occipital or supraclavicular lymphadenopathy. CHEST: Normal chest expansion. No Telemetry. LUNGS: Absence of any rales, rhonchi or any wheezing. CARDIOVASCULAR: Regular. S1 and S2 normal. No appreciable rubs, murmurs or gallops. ABDOMEN: Soft, nontender, and nondistended. There is no rebound, voluntary guarding, or rigidity. : Deferred. No Bennett. EXTREMITIES: BLE lymphedema with right LE drainage noted SKIN: Lymphedema, RLE wound Vital Signs (last 8hr) Date Time Temp Pulse Resp B/P (MAP) Pulse Ox O2 Delivery O2 Flow Rate FiO2 09/26/24 11:50 98.2 80 20 157/83 96 Room Air 21 09/26/24 08:00 100 Room Air* 0 21 09/26/24 07:25 98.4 74 20 146/80 100 Room Air 21 LABS: Laboratory: Test 09/26/24 04:32 09/25/24 13:20 Range/Units White Blood Count 9.7 4.8-10.8 K/uL Red Blood Count 4.51 4.50-6.20 MIL/uL Hemoglobin 10.8 L 14.0-18.0 g/dL Hematocrit 35.8 L 42-54 % Mean Corpuscular Volume 79.4 79-99 fL Mean Corpuscular Hemoglobin 23.9 L 27.0-33.0 pg Mean Corpuscular Hemoglobin Concent 30.2 L 32.0-36.0 g/dL Red Cell Distribution Width 15.5 11.0-15.5 % Platelet Count 417 H 130-400 K/uL Mean Platelet Volume 8.4 7.5-10.5 fL Immature Granulocyte % (Auto) 1.6 H 0-1 % Neutrophils (%) (Auto) 56.3 40.0-77.0 % Lymphocytes (%) (Auto) 25.2 21.0-51.0 % Monocytes (%) (Auto) 12.7 3.0-13.0 % Eosinophils (%) (Auto) 3.3 0.0-8.0 % Basophils (%) (Auto) 0.9 0.0-5.0 % Neutrophils # (Auto) 5.4 1.8-7.7 K/uL Lymphocytes # (Auto) 2.4 1.0-4.8 K/uL Monocytes # (Auto) 1.2 H 0.1-1.0 K/uL Eosinophils # (Auto) 0.32 0.00-0.70 K/uL Basophils # (Auto) 0.09 0.00-0.20 K/uL Absolute Immature Granulocyte (auto 0.15 0-1 K/uL Nucleated Red Blood Cells 0.0 0.0-0.19 % Sodium Level 139 136-145 mmol/L Potassium Level 4.2 3.5-5.1 mmol/L Chloride Level 103 101-111 mmol/L Carbon Dioxide Level 29 21-32 mmol/L Blood Urea Nitrogen 19 H 7-18 mg/dL Creatinine 1.1 0.5-1.3 mg/dL Glomerular Filtration Rate Calc 82 >90 mL/min Random Glucose 92 70-105 mg/dL Total Calcium 9.4 8.5-10.1 mg/dL Total Bilirubin 0.2 0.2-1.0 mg/dL Aspartate Amino Transf (AST/SGOT) 21 10-37 U/L Alanine Aminotransferase (ALT/SGPT) 12 12-78 U/L Alkaline Phosphatase 148 H 50-136 U/L Total Protein 7.2 6.0-8.3 g/dL Albumin 2.4 L 3.5-5.0 g/dL Prothrombin Time 11.9 H 9.6-11.6 SEC Prothromb Time International Ratio 1.07 0.85-1.15 Current Medications Medications (Trade) Dose Ordered Sig/Enio Route PRN Reason Start Time Stop Time Status Last Admin Dose Admin Acetaminophen (TYLenol 500MG TAB) 500 mg Q6H PRN PO MILD PAIN (1-3) 09/19/24 14:00 10/19/24 13:59 09/24/24 21:26 500 MG Aspirin (Aspirin 81mg Ec Tab) 81 mg DAILY PO 09/23/24 09:00 10/23/24 08:59 09/26/24 09:22 81 MG Brimonidine Tartrate (Alphagan P) 1 DROP OS HS HS OS 09/22/24 21:00 10/22/24 20:59 Bupropion HCl (WellBUTrin SR 150MG) 300 mg DAILY PO 09/20/24 09:00 10/20/24 08:59 09/26/24 09:23 300 MG Cefazolin Sodium (Ancef) 2 gm Q8H IVPB 09/23/24 13:30 10/03/24 13:29 09/26/24 05:59 2 GM Cefepime HCl (MAXipime 1 GM vial) 1 gm ONCE IVPB 09/19/24 11:00 09/19/24 10:54 DC Cefepime HCl (MAXipime 2 gm vial) 2 gm Q8H IVPB 09/19/24 14:00 09/19/24 14:08 DC Cefepime HCl (MAXipime 2 gm vial) 2 gm Q8H IVPB 09/19/24 19:00 09/23/24 03:37 DC 09/22/24 21:07 2 GM Cefepime HCl (MAXipime 2 gm vial) 2 gm Q8H IVPB 09/23/24 06:00 09/23/24 13:11 DC 09/23/24 05:31 2 GM Citalopram Hydrobromide (CeleXA 20MG TAB) 60 mg DAILY PO 09/26/24 09:00 10/23/24 08:59 09/26/24 09:23 60 MG Citalopram Hydrobromide (CeleXA 20MG TAB) 90 mg DAILY PO 09/23/24 09:00 09/25/24 16:56 DC 09/25/24 08:28 90 MG Enoxaparin Sodium (Lovenox (Pharmacy To Dose)) 1 unit Q24H SQ 09/19/24 14:00 09/19/24 14:02 DC Enoxaparin Sodium (Lovenox) 40 mg BID SQ 09/19/24 21:00 10/19/24 20:59 09/26/24 09:26 40 MG Famotidine (Pepcid 20mg Tab) 20 mg BID PO 09/19/24 21:00 10/19/24 20:59 09/26/24 09:23 20 MG Ferrous Sulfate (Ferrous Sulfate) 325 mg HS PO 09/20/24 21:00 10/20/24 20:59 09/25/24 20:00 325 MG Furosemide (LASix 40MG TAB) 40 mg DAILY PO 09/21/24 09:00 10/21/24 08:59 09/26/24 09:23 40 MG Home Med (Home Medication) (Timolol Maleate 1 DROP) DAILY OS 09/20/24 09:00 10/20/24 08:59 Hydralazine HCl (APRESOLine 20MG INJ) 10 mg Q6H PRN IV ADMINISTER FOR SBP > 160 09/24/24 17:00 10/24/24 16:59 09/24/24 17:13 10 MG Hydralazine HCl ([id number] TAB) 25 mg TID PO 09/23/24 14:00 09/25/24 10:33 DC 09/25/24 08:28 25 MG Hydralazine HCl ([id number] TAB) 50 mg BID PO 09/22/24 21:00 09/23/24 11:24 DC 09/23/24 08:51 50 MG Hydralazine HCl ([id number] TAB) 50 mg BID PO 09/25/24 21:00 10/23/24 13:59 09/26/24 09:23 50 MG Latanoprost (Xalatan) 1 DROP OS HS HS OS 09/22/24 21:00 10/22/24 20:59 Levothyroxine Sodium (SYNTHroid 25MCG TAB) 25 mcg SYN PO 09/21/24 06:30 10/21/24 06:29 09/26/24 06:00 25 MCG Lorazepam (AtiVAN) 1 mg Q6H PRN PO anxiety 09/23/24 19:00 10/23/24 18:59 09/24/24 21:26 1 MG Losartan Potassium (CozAAR 100MG TAB) 100 mg DAILY PO 09/21/24 09:00 10/21/24 08:59 09/26/24 09:23 100 MG Morphine Sulfate (morPHINE 2MG SYG) 2 mg Q4H PRN IVP SEVERE PAIN (7-10) 09/19/24 14:00 09/24/24 16:59 DC Ondansetron HCl (zoFRAN 4MG INJ) 4 mg Q6H PRN IVP NAUSEA/VOMITING 09/19/24 14:00 10/19/24 13:59 Potassium Chloride 100 ml @ 100 mls/hr AD PRN IV POTASSIUM PROTOCOL 09/20/24 09:00 10/20/24 08:59 Potassium Chloride (K-Dur/Klor-Con 20meq) 20 meq AD PRN PO POTASSIUM PROTOCOL 09/20/24 09:00 10/20/24 08:59 Potassium Chloride (KCl 10% Elixir 20meq/15ml) 20 meq AD PRN PO POTASSIUM PROTOCOL 09/20/24 09:00 10/20/24 08:59 Sennosides (Senna) 2 tab BID PO 09/22/24 21:00 10/22/24 20:59 09/26/24 09:22 2 TAB Vancomycin HCl 250 ml @ 125 mls/hr Q12H IV 09/19/24 23:00 09/21/24 10:45 DC 09/20/24 22:56 125 MLS/HR Vancomycin HCl 250 ml @ 125 mls/hr Q12H IV 09/21/24 11:00 09/23/24 10:39 DC 09/22/24 23:04 125 MLS/HR Vancomycin HCl 250 ml @ 125 mls/hr Q12H IV 09/23/24 23:00 09/23/24 13:11 DC Vancomycin HCl (Vancomycin Protocol) 1 each AD IV 09/19/24 14:00 09/23/24 13:11 DC DIAGNOSTICS / RADIOLOGY: [ ] ASSESSMENT: Right lower extremity cellulitis with abscess, improving POA Morbid obesity, BMI 48.8 kg/M2 History of bilateral lower extremity lymphedema Hypertension Anemia Hypothyroidism PLAN:- The patient remains admitted on the medical surgical floor. Right lower extremity cellulitis with abscess, POA * Aerobic and anaerobic wound culture is positive with Staphylococcus aureus. Infectious disease consulted, Discontinue vancomycin and start cefazolin. * Consult surgery, we will continue to follow recommendations * A PICC line will be placed to facilitate long-term antibiotic therapy * Case management is coordinating outpatient IV antibiotic therapy as per the patient's preference. * Continue with heart healthy diet. * Continue with hypertension management IV hydralazine p.r.n. * Continue with pain management * GI prophylaxis famotidine 20 mg p.o. b.i.d. daily * DVT prophylaxis with Lovenox 30 mg subQ daily ATTESTATION BY PHYSICIAN I have seen and examined the patient. I reviewed the documentation, medical decision making, and treatment plan as noted by the resident provider above. I agree with the findings and plan of care. Kaleigh Tobar MD, GERARDO MD Sep 26, 2024 14:59
--- NOTE | 2024-09-26 15:25 | PN ---
INFECTIOUS DISEASE PROGRESS NOTE Date of Service: Sep 26, 2024 SUBJECTIVE: This is a 49-year-old male patient with past medical history of chronic lymphedema who presented to the hospital with chief complaint of a right lower extremity draining wound and redness. A right lower extremity ultrasound done on admission showed a 10.3 x 1.9 cm nondrainable fluid collection on the posterolateral right calf suggestive of evolving abscess. General surgery was consulted and patient underwent an incision and drainage on 09/24/2024. Patient was seen and examined at bedside in room 406. Patient is awake, alert and oriented x 3. Patient is status post incision and drainage of the right lower leg abscess day # 2. During rounding today patient stated that he does not want to go to a detention. Father who is visiting at bedside agree with patient's decision and willing to take patient to [facility] for outpatient IV antibiotic instead. Nursing to inform case management of patient's decision. Patient already has a prescription for cefazolin 2 g IV every 8 hours x 2 weeks in chart. No fever this morning, temperature is 98.2. We will continue to monitor patient's care. PHYSICAL EXAM EYES: Anicteric. Pupils equal and reactive. HENT: No oral thrush seen, moist Oral mucosa NECK: Supple, no JVD or thyromegaly. LUNGS: Good air entry. No rales, no rhonchi. CARDIOVASCULAR: S1, S2 regular. No murmur heard. ABDOMEN: Soft, non tender, bowel sounds present, no organomegaly CENTRAL NERVOUS SYSTEM: Awake, alert, oriented x 3. No focal deficits. SKIN: No rashes, no swelling. LYMPHATICS: No peripheral lymphadenopathy MUSCULOSKELETAL: No joint swelling, erythema or tenderness. EXTREMITIES: No cyanosis or clubbing BACK: No deformity, no pressure ulcer. GENITOURINARY: No dysuria or hematuria Vital Sign (Last 12 Hours) 09/26/24 09/26/24 09/26/24 09/26/24 04:00 07:25 08:00 11:50 Temp 98.4 98.4 98.2 Pulse 67 74 80 Resp 18 20 20 B/P (MAP) 146/84 146/80 157/83 Pulse Ox 97 100 100 96 O2 Delivery CPAP Room Air Room Air* Room Air O2 Flow Rate 0 FiO2 21 21 21 Intake & Output (last 24hrs) 09/25/24 09/25/2425 15:00 23:00 07:00 Intake Total 100.0 ml 875 ml 120 ml Output Total 875 ml 550 ml Balance 100.0 ml 0 ml -430 ml LABS: Laboratory: Test 09/26/24 04:32 09/25/24 13:20 Range/Units White Blood Count 9.7 4.8-10.8 K/uL Red Blood Count 4.51 4.50-6.20 MIL/uL Hemoglobin 10.8 L 14.0-18.0 g/dL Hematocrit 35.8 L 42-54 % Mean Corpuscular Volume 79.4 79-99 fL Mean Corpuscular Hemoglobin 23.9 L 27.0-33.0 pg Mean Corpuscular Hemoglobin Concent 30.2 L 32.0-36.0 g/dL Red Cell Distribution Width 15.5 11.0-15.5 % Platelet Count 417 H 130-400 K/uL Mean Platelet Volume 8.4 7.5-10.5 fL Immature Granulocyte % (Auto) 1.6 H 0-1 % Neutrophils (%) (Auto) 56.3 40.0-77.0 % Lymphocytes (%) (Auto) 25.2 21.0-51.0 % Monocytes (%) (Auto) 12.7 3.0-13.0 % Eosinophils (%) (Auto) 3.3 0.0-8.0 % Basophils (%) (Auto) 0.9 0.0-5.0 % Neutrophils # (Auto) 5.4 1.8-7.7 K/uL Lymphocytes # (Auto) 2.4 1.0-4.8 K/uL Monocytes # (Auto) 1.2 H 0.1-1.0 K/uL Eosinophils # (Auto) 0.32 0.00-0.70 K/uL Basophils # (Auto) 0.09 0.00-0.20 K/uL Absolute Immature Granulocyte (auto 0.15 0-1 K/uL Nucleated Red Blood Cells 0.0 0.0-0.19 % Sodium Level 139 136-145 mmol/L Potassium Level 4.2 3.5-5.1 mmol/L Chloride Level 103 101-111 mmol/L Carbon Dioxide Level 29 21-32 mmol/L Blood Urea Nitrogen 19 H 7-18 mg/dL Creatinine 1.1 0.5-1.3 mg/dL Glomerular Filtration Rate Calc 82 >90 mL/min Random Glucose 92 70-105 mg/dL Total Calcium 9.4 8.5-10.1 mg/dL Total Bilirubin 0.2 0.2-1.0 mg/dL Aspartate Amino Transf (AST/SGOT) 21 10-37 U/L Alanine Aminotransferase (ALT/SGPT) 12 12-78 U/L Alkaline Phosphatase 148 H 50-136 U/L Total Protein 7.2 6.0-8.3 g/dL Albumin 2.4 L 3.5-5.0 g/dL Prothrombin Time 11.9 H 9.6-11.6 SEC Prothromb Time International Ratio 1.07 0.85-1.15 ASSESSMENT: Right lower leg abscess, s/p incision and drainage on 09/24/2024. Infection with methicillin sensitive Staphylococcus aureus. Bilateral lower extremity lymphedema. Morbid obesity. PLAN: Continue cefazolin 2 g IV every 8 hours. Continue wound care. Continue pain management. Continue GI prophylaxis. We will monitor electrolytes. Patient declined SNF placement. Case management to evaluate for referral to [facility] for outpatient IV antibiotic. Place midline. This case was reviewed and discussed with my supervising physician and the above assessment and plan was formulated and agreed upon. ATTESTATION BY PHYSICIAN I have seen and examined the patient. I reviewed the documentation, medical decision making, and treatment plan as noted by the mid-level provider above. I agree with the findings and plan of care. JEFF RICHARDS MD, [facility] Sep 26, 2024 15:25
--- NOTE | 2024-09-26 17:42 | NUR ---
EDITH NOTE: [facility] PENDING APPROVAL CM MET WITH PT AND MOTHER AGAIN, PT BEEN GOING BACK AND FORTH REGARDING PLACEMENT AND DCP TO HOME. AT THIS TIME PT PREFERRED TO GO BACK HOME, STATES MOTHER WILL BE ABLE TO HELP W/TRANSPORTATION AND DRESSING CARE. CONSENT SIGNED [facility] FOR [facility]. CM SENT SCRIPT, CLINICALS TO [facility] VIA SECURE EMAIL. PENDING REP RESPONSE. PT ALSO STILL CURRENTLY PENDING MIDLINE/PICC PLACEMENT AT THIS TIME. PRIMARY NURSE REYES MADE AWARE. DR VELASQUEZ UPDATED. CM TO CONTINUE TO FOLLOW UP. Addendum: 09/26/24 at 1746 by JOSE SONI LVN CM Amended: Links added.
--- NOTE | 2024-09-26 19:12 | NUR ---
DEMONSTRATION OF WOUND CARE PROVIDED AT THIS TIME WITH PATIENT'S MOM. PATIENT'S MOM VERBALIZED UNDERSTANDING AND ABLE TO TEACH BACK.
[2024-09-27] VITALS (7 sets, daily range): BP systolic 127–171; BP diastolic 78–88; PULSE 65–77; RESP 14–20; TEMP 97.2–98.2; O2SAT 95
[2024-09-27 03:57] LABS: BASOPHILS # (AUTO) 0.09 K/uL (0.00-0.20); BASOPHILS % (AUTO) 0.9 % (0.0-5.0); EOSINOPHILS # (AUTO) 0.31 K/uL (0.00-0.70); EOSINOPHILS % (AUTO) 3.1 % (0.0-8.0); HEMATOCRIT 36.2 % (42-54); IMMATURE GRANULOCYTE ABSOLUTE 0.18 K/uL (0-1); LYMPHOCYTES # (AUTO) 2.4 K/uL (1.0-4.8); LYMPHOCYTES % (AUTO) 23.8 % (21.0-51.0); MEAN CORPUSCULAR HGB CONC 29.6 g/dL (32.0-36.0); MEAN CORPUSCULAR VOLUME 81.2 fL (79-99); MONOCYTES # (AUTO) 1.3 K/uL (0.1-1.0); MONOCYTES % (AUTO) 13.4 % (3.0-13.0); NEUTROPHILS # (AUTO) 5.6 K/uL (1.8-7.7); PLATELET COUNT (AUTO) 379 K/uL (130-400); RED BLOOD CELL COUNT(AUTO) 4.46 MIL/uL (4.50-6.20); RED CELL DISTRIBUTION WIDTH 15.5 % (11.0-15.5); WHITE BLOOD COUNT (AUTO) 9.9 K/uL (4.8-10.8)
[2024-09-27 04:10] LABS: ALBUMIN 2.3 g/dL (3.5-5.0); BILIRUBIN,TOTAL 0.2 mg/dL (0.2-1.0); CREATININE 1.1 mg/dL (0.5-1.3); POTASSIUM 4.3 mmol/L (3.5-5.1); TOTAL PROTEIN, SERUM 6.8 g/dL (6.0-8.3)
--- NOTE | 2024-09-27 12:36 | PN ---
INFECTIOUS DISEASE PROGRESS NOTE Date of Service: Sep 27, 2024 SUBJECTIVE: This is a 49-year-old male patient with past medical history of chronic lymphedema who presented to the hospital with chief complaint of a right lower extremity draining wound and redness. A right lower extremity ultrasound done on admission showed a 10.3 x 1.9 cm nondrainable fluid collection on the posterolateral right calf suggestive of evolving abscess. General surgery was consulted and patient underwent an incision and drainage on 09/24/2024. Patient was seen and examined at bedside in room 406. Patient is awake, alert and oriented x 3. Patient is status post incision and drainage of the right lower leg abscess on 09/24/2024. During rounding today patient is sitting up on the edge of the bed. Swelling to bilateral lower extremities has decreased. Patient is afebrile, temperature is 97.9. Patient is pending a midline placement and insurance authorization to [facility] for outpatient IV antibiotic. Patient continues on cefazolin IV. We will continue to monitor patient's care. PHYSICAL EXAM EYES: Anicteric. Pupils equal and reactive. HENT: No oral thrush seen, moist Oral mucosa NECK: Supple, no JVD or thyromegaly. LUNGS: Good air entry. No rales, no rhonchi. CARDIOVASCULAR: S1, S2 regular. No murmur heard. ABDOMEN: Soft, non tender, bowel sounds present, no organomegaly CENTRAL NERVOUS SYSTEM: Awake, alert, oriented x 3. No focal deficits. SKIN: No rashes, no swelling. LYMPHATICS: No peripheral lymphadenopathy MUSCULOSKELETAL: No joint swelling, erythema or tenderness. EXTREMITIES: No cyanosis or clubbing BACK: No deformity, no pressure ulcer. GENITOURINARY: No dysuria or hematuria Vital Sign (Last 12 Hours) 09/27/24 09/27/24 09/27/24 03:30 07:49 12:00 Temp 97.2 98.2 97.9 Pulse 75 77 75 Resp 20 15 15 B/P (MAP) 127/85 145/88 150/84 Pulse Ox 95 95 94 O2 Delivery Room Air Room Air Room Air O2 Flow Rate 0.0 0.0 Intake & Output (last 24hrs) 0 09/26/24 09/26/24 09/27/24 15:00 23:00 07:00 Intake Total 1000 ml 240 ml Output Total 1000 ml 450 ml Balance 0 ml -210 ml LABS: Laboratory: Test 09/27/24 11:44 09/27/24 03:40 09/25/24 13:20 Range/Units Whole Blood Glucose 92 70-110 MG/DL White Blood Count 9.9 4.8-10.8 K/uL Red Blood Count 4.46 L 4.50-6.20 MIL/uL Hemoglobin 10.7 L 14.0-18.0 g/dL Hematocrit 36.2 L 42-54 % Mean Corpuscular Volume 81.2 79-99 fL Mean Corpuscular Hemoglobin 24.0 L 27.0-33.0 pg Mean Corpuscular Hemoglobin Concent 29.6 L 32.0-36.0 g/dL Red Cell Distribution Width 15.5 11.0-15.5 % Platelet Count 379 130-400 K/uL Mean Platelet Volume 8.8 7.5-10.5 fL Immature Granulocyte % (Auto) 1.8 H 0-1 % Neutrophils (%) (Auto) 57.0 40.0-77.0 % Lymphocytes (%) (Auto) 23.8 21.0-51.0 % Monocytes (%) (Auto) 13.4 H 3.0-13.0 % Eosinophils (%) (Auto) 3.1 0.0-8.0 % Basophils (%) (Auto) 0.9 0.0-5.0 % Neutrophils # (Auto) 5.6 1.8-7.7 K/uL Lymphocytes # (Auto) 2.4 1.0-4.8 K/uL Monocytes # (Auto) 1.3 H 0.1-1.0 K/uL Eosinophils # (Auto) 0.31 0.00-0.70 K/uL Basophils # (Auto) 0.09 0.00-0.20 K/uL Absolute Immature Granulocyte (auto 0.18 0-1 K/uL Nucleated Red Blood Cells 0.0 0.0-0.19 % Red Blood Cell Morphology See comments Sodium Level 138 136-145 mmol/L Potassium Level 4.3 3.5-5.1 mmol/L Chloride Level 104 101-111 mmol/L Carbon Dioxide Level 31 21-32 mmol/L Blood Urea Nitrogen 21 H 7-18 mg/dL Creatinine 1.1 0.5-1.3 mg/dL Glomerular Filtration Rate Calc 82 >90 mL/min Random Glucose 103 70-105 mg/dL Total Calcium 9.0 8.5-10.1 mg/dL Total Bilirubin 0.2 0.2-1.0 mg/dL Aspartate Amino Transf (AST/SGOT) 27 10-37 U/L Alanine Aminotransferase (ALT/SGPT) 12 12-78 U/L Alkaline Phosphatase 144 H 50-136 U/L Total Protein 6.8 6.0-8.3 g/dL Albumin 2.3 L 3.5-5.0 g/dL Prothrombin Time 11.9 H 9.6-11.6 SEC Prothromb Time International Ratio 1.07 0.85-1.15 ASSESSMENT: Right lower leg abscess, s/p incision and drainage on 09/24/2024. Infection with methicillin sensitive Staphylococcus aureus. Bilateral lower extremity lymphedema. Morbid obesity. PLAN: Continue cefazolin IV. Continue wound care. Continue pain management. Continue GI prophylaxis. Pending insurance authorization to [facility] for outpatient IV antibiotic. Pending a midline placement. This case was reviewed and discussed with my supervising physician and the above assessment and plan was formulated and agreed upon. ATTESTATION BY PHYSICIAN I have seen and examined the patient. I reviewed the documentation, medical decision making, and treatment plan as noted by the mid-level provider above. I agree with the findings and plan of care. JEFF RICHARDS MD, [facility] Sep 27, 2024 12:36
--- NOTE | 2024-09-27 16:11 | PN ---
[facility] PROGRESS NOTE Date of Service: Sep 27, 2024 Time of Service: 16:10 SUBJECTIVE: The patient is a 49-year-old male with a past medical history of bilateral lower limb lymphedema, hypertension, anemia, hypothyroidism presented to ED yesterday with a chief complaint of right lower extremity calf redness, greenish wound discharge and pain. It started with a small boil 3 days ago and became progressively worsened started draining yesterday. In the emergency department, serosanguineous discharge was noted. Labs were nonsignificant. He was started on cefepime and vancomycin. Ultrasound soft tissue lower extremity showed 10.3 cm long and 1.9 cm wide non drainable fluid collection on the posterolateral right calf with surrounding hyperemia, evolving abscess. He was admitted to [facility] on medical surgical floor for the management of right lower extremity cellulitis with abscess. 09/20/2024- patient was examined at bedside, lying comfortably, not in acute distress. The patient has a dressing over the draining abscess. No any acute overnight episodes, running slightly hypertensive. Labs: Hemoglobin 9.9, thrombocytosis with platelets 469, potassium 3.3, hemoglobin A1c 5.5. Per Dr. Lopez, the patient will be monitored for 24-48 hours for evolving abscess. If the condition not improve, exploration with drainage will be performed. ID recommendations are pending. 09/21/24- The patient was examined today at bedside, lying comfortably, not in acute distress. The abscess has significantly drained and appears to be improved. He has been running hypertensive with SBP in 150s and 160s. Home medications were resumed, we will closely monitor vitals. No any acute overnight episodes were noted. Per Surgery, no surgical intervention. We will continue with IV antibiotics Cefepime and Vancomycin today. 09/22/24- patient was evaluated in the room with his mother at bedside. I discussed lab results and culture results as patient is positive with Staphylococcus aureus on the wound culture. We will continue with current IV antibiotics. We are consulting Infectious Disease, pending to be seen. So far patient is afebrile. We will continue to monitor. 09/23/24 patient was evaluated in the room, mother at bedside. Patient has been evaluated by Infectious Disease who recommended to continue with vancomycin and cefepime. We will follow up with general surgeon on further recommendations. 09/24/24 the patient was seen this morning following incision and drainage of a right lower extremity abscess. The patient reports feeling significantly better and denies any pain. Vital signs are stable, although blood pressure is elevated at 161/86. The patient will be monitored closely to assess blood pressure trends and determine if antihypertensive medication is necessary to add. Laboratory results from today include: WBC: 7.7 Previously 8.2. Myoglobin: 10.4 Previously 10.1. Platelets: 391 previously 385. Sodium: 144 Previously 142. Potassium 3.6 previously 3.7. Creatinine: 1.1. The abscess culture is positive for Staphylococcus areas. Infectious Disease has discontinued vancomycin and initiated cefazolin therapy. Patient will remain under observation with ongoing management per Infectious Disease and General surgery recommendations. 09/25/24 [facility] and is alert and oriented to person, place, and time. Vital signs are stable. The patient's hydralazine dose was adjusted from 25 mg t.i.d. to 50 mg b.i.d. the patient remains on IV cefazolin. Today's laboratory results are as follows: WBC 9.3, hemoglobin 10.4, platelets 404, sodium 141, potassium 4.4, creatinine 1.0, GFR 92. Infectious Disease has recommended placing a PICC line, and the patient will continue IV antibiotic therapy for 4 weeks. Case management is coordinating discharge to a alf facility to complete the treatment. 09/26/24 patient was visited this morning at bedside and is oriented to person, place, and time. Infectious Disease recommended continuing the antibiotic jaymie tment for the patient's condition. Consequently, the treatment plan has been approved for transfer to [facility]. This morning, the patient was informed that the best option for continuing treatment will be to transfer to a alf facility to complete 2 weeks of intravenous antibiotics, wound care, and physical therapy. These recommendation is due to the patient overweight status and lymphedema in both legs. The patient expresses preference to be discharged home and receive IV antibiotic therapy at a clinic. It was explained to the patient that if this option is chosen, I will care coverage we will only include IV therapy at the clinic and not wound care at home. As a result, family member specifically the patient's mother we will need to be trained to performed wound care at home. The family has not yet made a decision regarding the patient's discharge plan. Additionally, placement of a PICC line remains pending and must be completed before the patient can be discharged to either the SNF or home. From our perspective, the SNF is the most appropriate setting to ensure comprehensive care, including IV antibiotics, wound care, physical therapy. 09/27/24 the patient was evaluated at the bedside this morning. Vital signs were stable, and the patient reported no pain. WBC 9.9, hemoglobin 10.7, platelets 379, sodium 138, potassium 4.4, creatinine 1.1 The patient was ambulatory today and initiated physical therapy. Discharge planning is underway, with the patient is scheduled for discharge to home tomorrow, pending successful PICC line placement today. The patient will continue antibiotic treatment at [facility]. The patient's mother has been instructed on wound care management. REVIEW OF SYSTEMS CONSTITUTIONAL: Denies fevers, chills, or night sweats. No unintentional weight loss reported. NEUROLOGICAL: Denies headache, amaurosis fugax, motor weakness, sensory deficit, vertigo/spinning sensation, gait abnormalities, or tremors. ENT: No hearing loss, otalgia, otorrhea, rhinitis, rhinorrhea, hoarseness, or sore throat. CARDIOVASCULAR: Denies any exertional angina, dyspnea on exertion, orthopnea, paroxysmal nocturnal dyspnea, palpitations, life-threatening arrhythmias, claudication. PULMONARY: Denies any shortness of breath, cough, phlegm/sputum, hemoptysis, pleuritic chest pain. SLEEP: Denies morning headaches, daytime somnolence or napping. Denies difficulty falling asleep, staying asleep, waking from sleep. Denies knowledge of snoring. GASTROINTESTINAL: Denies any type of dysphagia to either liquids or solids. Denies nausea, vomiting, pyrosis, early satiety, abdominal pain, diarrhea, constipation, or changes in stool consistency or caliber. Denies coffee-ground emesis, hematemesis, hematochezia, or melanotic stools. GENITOURINARY: Denies frequency, urgency, nocturia, hematuria or incontinence (Storage/Irritative symptoms.) Low urinary stream, straining to void, urinary intermittency or hesitancy, splitting of the voiding stream, terminal dribbling. ENDOCRINOLOGIC: Denies polyuria, polydipsia, polyphagia or heat/cold intolerances. HEMATOLOGIC: Denies thrombophilia/previous clots, or coagulopathy/bleeding disorders. ONCOLOGIC: Denies personal history of malignancy. DERMATOLOGIC: Reports redness to right LE, with pus noted, bilateral lymphedema noted PSYCHIATRIC: Denies any suicidal or homicidal ideation. Denies hallucinations. PHYSICAL EXAM GENERAL APPEARANCE: The patient is awake, alert, and oriented, in no acute cardiopulmonary distress. NEUROLOGICAL: Cranial nerves II-XII grossly intact. Motor is 5/5 in bilateral upper and lower extremities proximal to distal. No sensory deficits. HEENT: Face is symmetric. Pupils are equal and reactive. Extraocular movements are intact. NECK: Supple. No JVD. No thyromegaly. No submental, submandibular, pre- /postauricular, occipital or supraclavicular lymphadenopathy. CHEST: Normal chest expansion. No Telemetry. LUNGS: Absence of any rales, rhonchi or any wheezing. CARDIOVASCULAR: Regular. S1 and S2 normal. No appreciable rubs, murmurs or gallops. ABDOMEN: Soft, nontender, and nondistended. There is no rebound, voluntary guarding, or rigidity. : Deferred. No Bennett. EXTREMITIES: BLE lymphedema with right LE drainage noted SKIN: Lymphedema, RLE wound Vital Signs (last 8hr) Date Time Temp Pulse Resp B/P (MAP) Pulse Ox O2 Delivery O2 Flow Rate FiO2 09/27/24 12:00 97.9 75 15 150/84 94 Room Air 0.0 LABS: Laboratory: Test 09/27/24 11:44 09/27/24 03:40 Range/Units Whole Blood Glucose 92 70-110 MG/DL White Blood Count 9.9 4.8-10.8 K/uL Red Blood Count 4.46 L 4.50-6.20 MIL/uL Hemoglobin 10.7 L 14.0-18.0 g/dL Hematocrit 36.2 L 42-54 % Mean Corpuscular Volume 81.2 79-99 fL Mean Corpuscular Hemoglobin 24.0 L 27.0-33.0 pg Mean Corpuscular Hemoglobin Concent 29.6 L 32.0-36.0 g/dL Red Cell Distribution Width 15.5 11.0-15.5 % Platelet Count 379 130-400 K/uL Mean Platelet Volume 8.8 7.5-10.5 fL Immature Granulocyte % (Auto) 1.8 H 0-1 % Neutrophils (%) (Auto) 57.0 40.0-77.0 % Lymphocytes (%) (Auto) 23.8 21.0-51.0 % Monocytes (%) (Auto) 13.4 H 3.0-13.0 % Eosinophils (%) (Auto) 3.1 0.0-8.0 % Basophils (%) (Auto) 0.9 0.0-5.0 % Neutrophils # (Auto) 5.6 1.8-7.7 K/uL Lymphocytes # (Auto) 2.4 1.0-4.8 K/uL Monocytes # (Auto) 1.3 H 0.1-1.0 K/uL Eosinophils # (Auto) 0.31 0.00-0.70 K/uL Basophils # (Auto) 0.09 0.00-0.20 K/uL Absolute Immature Granulocyte (auto 0.18 0-1 K/uL Nucleated Red Blood Cells 0.0 0.0-0.19 % Red Blood Cell Morphology See comments Sodium Level 138 136-145 mmol/L Potassium Level 4.3 3.5-5.1 mmol/L Chloride Level 104 101-111 mmol/L Carbon Dioxide Level 31 21-32 mmol/L Blood Urea Nitrogen 21 H 7-18 mg/dL Creatinine 1.1 0.5-1.3 mg/dL Glomerular Filtration Rate Calc 82 >90 mL/min Random Glucose 103 70-105 mg/dL Total Calcium 9.0 8.5-10.1 mg/dL Total Bilirubin 0.2 0.2-1.0 mg/dL Aspartate Amino Transf (AST/SGOT) 27 10-37 U/L Alanine Aminotransferase (ALT/SGPT) 12 12-78 U/L Alkaline Phosphatase 144 H 50-136 U/L Total Protein 6.8 6.0-8.3 g/dL Albumin 2.3 L 3.5-5.0 g/dL Current Medications Medications (Trade) Dose Ordered Sig/Enio Route PRN Reason Start Time Stop Time Status Last Admin Dose Admin Acetaminophen (TYLenol 500MG TAB) 500 mg Q6H PRN PO MILD PAIN (1-3) 09/19/24 14:00 10/19/24 13:59 09/24/24 21:26 500 MG Aspirin (Aspirin 81mg Ec Tab) 81 mg DAILY PO 09/23/24 09:00 10/23/24 08:59 09/27/24 08:17 81 MG Brimonidine Tartrate (Alphagan P) 1 DROP OS HS HS OS 09/22/24 21:00 10/22/24 20:59 Bupropion HCl (WellBUTrin SR 150MG) 300 mg DAILY PO 09/20/24 09:00 10/20/24 08:59 09/27/24 08:17 300 MG Cefazolin Sodium (Ancef) 2 gm Q8H IVPB 09/23/24 13:30 10/03/24 13:29 09/27/24 14:29 2 GM Cefepime HCl (MAXipime 1 GM vial) 1 gm ONCE IVPB 09/19/24 11:00 09/19/24 10:54 DC Cefepime HCl (MAXipime 2 gm vial) 2 gm Q8H IVPB 09/19/24 14:00 09/19/24 14:08 DC Cefepime HCl (MAXipime 2 gm vial) 2 gm Q8H IVPB 09/19/24 19:00 09/23/24 03:37 DC 09/22/24 21:07 2 GM Cefepime HCl (MAXipime 2 gm vial) 2 gm Q8H IVPB 09/23/24 06:00 09/23/24 13:11 DC 09/23/24 05:31 2 GM Citalopram Hydrobromide (CeleXA 20MG TAB) 60 mg DAILY PO 09/26/24 09:00 10/23/24 08:59 09/27/24 08:17 60 MG Citalopram Hydrobromide (CeleXA 20MG TAB) 90 mg DAILY PO 09/23/24 09:00 09/25/24 16:56 DC 09/25/24 08:28 90 MG Enoxaparin Sodium (Lovenox (Pharmacy To Dose)) 1 unit Q24H SQ 09/19/24 14:00 09/19/24 14:02 DC Enoxaparin Sodium (Lovenox) 40 mg BID SQ 09/19/24 21:00 10/19/24 20:59 09/27/24 08:17 40 MG Famotidine (Pepcid 20mg Tab) 20 mg BID PO 09/19/24 21:00 10/19/24 20:59 09/27/24 08:17 20 MG Ferrous Sulfate (Ferrous Sulfate) 325 mg HS PO 09/20/24 21:00 10/20/24 20:59 09/26/24 20:01 325 MG Furosemide (LASix 40MG TAB) 40 mg DAILY PO 09/21/24 09:00 10/21/24 08:59 09/27/24 08:17 40 MG Home Med (Home Medication) (Timolol Maleate 1 DROP) DAILY OS 09/20/24 09:00 10/20/24 08:59 Hydralazine HCl (APRESOLine 20MG INJ) 10 mg Q6H PRN IV ADMINISTER FOR SBP > 160 09/24/24 17:00 10/24/24 16:59 09/24/24 17:13 10 MG Hydralazine HCl ([id number] TAB) 25 mg TID PO 09/23/24 14:00 09/25/24 10:33 DC 09/25/24 08:28 25 MG Hydralazine HCl ([id number] TAB) 50 mg BID PO 09/22/24 21:00 09/23/24 11:24 DC 09/23/24 08:51 50 MG Hydralazine HCl ([id number] TAB) 50 mg BID PO 09/25/24 21:00 10/23/24 13:59 09/27/24 08:17 50 MG Latanoprost (Xalatan) 1 DROP OS HS HS OS 09/22/24 21:00 10/22/24 20:59 Levothyroxine Sodium (SYNTHroid 25MCG TAB) 25 mcg SYN PO 09/21/24 06:30 10/21/24 06:29 09/27/24 06:35 25 MCG Lorazepam (AtiVAN) 1 mg Q6H PRN PO anxiety 09/23/24 19:00 10/23/24 18:59 09/24/24 21:26 1 MG Losartan Potassium (CozAAR 100MG TAB) 100 mg DAILY PO 09/21/24 09:00 10/21/24 08:59 09/27/24 08:17 100 MG Morphine Sulfate (morPHINE 2MG SYG) 2 mg Q4H PRN IVP SEVERE PAIN (7-10) 09/19/24 14:00 09/24/24 16:59 DC Ondansetron HCl (zoFRAN 4MG INJ) 4 mg Q6H PRN IVP NAUSEA/VOMITING 09/19/24 14:00 10/19/24 13:59 Potassium Chloride 100 ml @ 100 mls/hr AD PRN IV POTASSIUM PROTOCOL 09/20/24 09:00 10/20/24 08:59 Potassium Chloride (K-Dur/Klor-Con 20meq) 20 meq AD PRN PO POTASSIUM PROTOCOL 09/20/24 09:00 10/20/24 08:59 Potassium Chloride (KCl 10% Elixir 20meq/15ml) 20 meq AD PRN PO POTASSIUM PROTOCOL 09/20/24 09:00 10/20/24 08:59 Sennosides (Senna) 2 tab BID PO 09/22/24 21:00 10/22/24 20:59 09/27/24 08:17 2 TAB Vancomycin HCl 250 ml @ 125 mls/hr Q12H IV 09/19/24 23:00 09/21/24 10:45 DC 09/20/24 22:56 125 MLS/HR Vancomycin HCl 250 ml @ 125 mls/hr Q12H IV 09/21/24 11:00 09/23/24 10:39 DC 09/22/24 23:04 125 MLS/HR Vancomycin HCl 250 ml @ 125 mls/hr Q12H IV 09/23/24 23:00 09/23/24 13:11 DC Vancomycin HCl (Vancomycin Protocol) 1 each AD IV 09/19/24 14:00 09/23/24 13:11 DC DIAGNOSTICS / RADIOLOGY: [ ] ASSESSMENT: Right lower extremity cellulitis with abscess, improving POA Morbid obesity, BMI 48.8 kg/M2 History of bilateral lower extremity lymphedema Hypertension Anemia Hypothyroidism PLAN:- The patient remains admitted on the medical surgical floor. Right lower extremity cellulitis with abscess, POA * Aerobic and anaerobic wound culture is positive with Staphylococcus aureus. Infectious disease consulted, Discontinue vancomycin and start cefazolin. * Consult surgery, we will continue to follow recommendations * A PICC line will be placed to facilitate long-term antibiotic therapy * Case management is coordinating outpatient IV antibiotic therapy as per the patient's preference. * Continue with heart healthy diet. * Continue with hypertension management IV hydralazine p.r.n. * Continue with pain management * GI prophylaxis famotidine 20 mg p.o. b.i.d. daily * DVT prophylaxis with Lovenox 30 mg subQ daily ATTESTATION BY PHYSICIAN I have seen and examined the patient. I reviewed the documentation, medical decision making, and treatment plan as noted by the resident provider above. I agree with the findings and plan of care. Kaleigh Tobar MD, GERARDO MD Sep 27, 2024 16:11
--- NOTE | 2024-09-27 16:29 | NUR ---
CM NOTE: [employer] APPROVAL CM RECEIVED APPROVAL CONFIRMATION FROM VIMAL Balbuena/[employer]. APPOINTMENT TOMORROW 09/28 @ 0800AM. PRIMARY NURSE KITTY MADE AWARE. DR VELASQUEZ UDPATED. PT CURRENTLY STILL PENDING MIDLINE/PICC PLACEMENT. SAFE TO DC ONCE LINE PLACED AND MD CLEARED. CM TO CONTINUE TO FOLLOW UP.
--- NOTE | 2024-09-27 22:29 | HMCIMG ---
CHEST 1VW HISTORY: PICC line placement COMPARISON: 08/05/2019 FINDINGS: A frontal projection of the chest was obtained. Mild bilateral pulmonary infiltrates are seen may be related to mild pulmonary vascular congestion with possible superimposed pneumonitis. The heart is borderline enlarged. Degenerative changes are seen. Right venous catheter is seen with distal tip in the plane of the superior vena cava. No evidence of aortic calcification is seen. IMPRESSION: 1. Mild bilateral pulmonary infiltrates are seen may be related to mild pulmonary vascular congestion with possible superimposed pneumonitis.
--- NOTE | 2024-09-27 23:52 | NUR ---
THIS ASSESSMENT IS FOR 09/27/2024 Addendum: 09/27/24 at 2353 by GALE KAMARA RN RN Amended: Links added.
[2024-09-28] VITALS: BP 138/84; PULSE 88; RESP 23; TEMP 98
[2024-09-28 04:00] VITALS: BP 156/81; PULSE 78; RESP 20; TEMP 98.3
[2024-09-28 05:56] LABS: BASOPHILS # (AUTO) 0.08 K/uL (0.00-0.20); BASOPHILS % (AUTO) 0.8 % (0.0-5.0); EOSINOPHILS # (AUTO) 0.26 K/uL (0.00-0.70); EOSINOPHILS % (AUTO) 2.7 % (0.0-8.0); HEMATOCRIT 35.8 % (42-54); IMMATURE GRANULOCYTE ABSOLUTE 0.19 K/uL (0-1); LYMPHOCYTES # (AUTO) 2.4 K/uL (1.0-4.8); LYMPHOCYTES % (AUTO) 24.2 % (21.0-51.0); MEAN CORPUSCULAR HEMOGLOBIN 24.1 pg (27.0-33.0); MEAN CORPUSCULAR HGB CONC 30.2 g/dL (32.0-36.0); MEAN CORPUSCULAR VOLUME 79.9 fL (79-99); MONOCYTES # (AUTO) 1.3 K/uL (0.1-1.0); NEUTROPHILS # (AUTO) 5.6 K/uL (1.8-7.7); NEUTROPHILS % (AUTO) 57.4 % (40.0-77.0); PLATELET COUNT (AUTO) 394 K/uL (130-400); RED BLOOD CELL COUNT(AUTO) 4.48 MIL/uL (4.50-6.20); RED CELL DISTRIBUTION WIDTH 15.7 % (11.0-15.5); WHITE BLOOD COUNT (AUTO) 9.8 K/uL (4.8-10.8)
[2024-09-28 06:15] LABS: ALBUMIN 2.4 g/dL (3.5-5.0); BILIRUBIN,TOTAL 0.3 mg/dL (0.2-1.0); POTASSIUM 4.5 mmol/L (3.5-5.1)
[2024-09-28 07:48] VITALS: BP 156/90; PULSE 73; RESP 15; TEMP 97.5
[2024-09-28 08:00] VITALS: O2SAT 95
[2024-09-28 12:00] VITALS: BP 139/73; PULSE 79; RESP 15; TEMP 97.4
--- NOTE | 2024-09-28 13:22 | PN ---
INFECTIOUS DISEASE PROGRESS NOTE Date of Service: Sep 28, 2024 SUBJECTIVE: This is a 49-year-old male patient with past medical history of chronic lymphedema who presented to the hospital with chief complaint of a right lower extremity draining wound and redness. A right lower extremity ultrasound done on admission showed a 10.3 x 1.9 cm nondrainable fluid collection on the posterolateral right calf suggestive of evolving abscess. General surgery was consulted and patient underwent an incision and drainage on 09/24/2024. Patient was seen and examined at bedside in room 406. Patient is awake, alert and oriented x 3. Patient is status post incision and drainage of the right lower leg abscess on 09/24/2024. Midline has been placed and has been approved to be used. Patient is afebrile, temperature is 97.3 and a hemoglobin is 9.8. Patient continues on cefazolin. Per report patient has been authorized to [facility] for outpatient IV antibiotic and will be discharged today. PHYSICAL EXAM EYES: Anicteric. Pupils equal and reactive. HENT: No oral thrush seen, moist Oral mucosa NECK: Supple, no JVD or thyromegaly. LUNGS: Good air entry. No rales, no rhonchi. CARDIOVASCULAR: S1, S2 regular. No murmur heard. ABDOMEN: Soft, non tender, bowel sounds present, no organomegaly CENTRAL NERVOUS SYSTEM: Awake, alert, oriented x 3. SKIN: No rashes, no swelling. LYMPHATICS: No peripheral lymphadenopathy MUSCULOSKELETAL: No joint swelling, erythema or tenderness. EXTREMITIES: No cyanosis or clubbing. BACK: No deformity, no pressure ulcer. GENITOURINARY: No dysuria or hematuria Vital Sign (Last 12 Hours) 09/28/24 09/28/24 09/28/24 09/28/24 04:00 07:48 08:00 12:00 Temp 98.2 97.5 97.3 Pulse 78 73 79 Resp 20 15 15 B/P (MAP) 156/81 156/90 139/73 Pulse Ox 96 94 95 97 O2 Delivery CPAP Room Air Room Air* Room Air O2 Flow Rate 0.0 0 0.0 FiO2 21 Intake & Output (last 24hrs) 09/27/24 09/27/24 09/28/24 15:00 23:00 07:00 Output Total 150 ml Balance -150 ml LABS: Laboratory: Test 09/28/24 11:43 09/28/24 05:39 09/27/24 03:40 Range/Units Whole Blood Glucose 95 70-110 MG/DL White Blood Count 9.8 4.8-10.8 K/uL Red Blood Count 4.48 L 4.50-6.20 MIL/uL Hemoglobin 10.8 L 14.0-18.0 g/dL Hematocrit 35.8 L 42-54 % Mean Corpuscular Volume 79.9 79-99 fL Mean Corpuscular Hemoglobin 24.1 L 27.0-33.0 pg Mean Corpuscular Hemoglobin Concent 30.2 L 32.0-36.0 g/dL Red Cell Distribution Width 15.7 H 11.0-15.5 % Platelet Count 394 130-400 K/uL Mean Platelet Volume 8.5 7.5-10.5 fL Immature Granulocyte % (Auto) 1.9 H 0-1 % Neutrophils (%) (Auto) 57.4 40.0-77.0 % Lymphocytes (%) (Auto) 24.2 21.0-51.0 % Monocytes (%) (Auto) 13.0 3.0-13.0 % Eosinophils (%) (Auto) 2.7 0.0-8.0 % Basophils (%) (Auto) 0.8 0.0-5.0 % Neutrophils # (Auto) 5.6 1.8-7.7 K/uL Lymphocytes # (Auto) 2.4 1.0-4.8 K/uL Monocytes # (Auto) 1.3 H 0.1-1.0 K/uL Eosinophils # (Auto) 0.26 0.00-0.70 K/uL Basophils # (Auto) 0.08 0.00-0.20 K/uL Absolute Immature Granulocyte (auto 0.19 0-1 K/uL Nucleated Red Blood Cells 0.0 0.0-0.19 % Sodium Level 139 136-145 mmol/L Potassium Level 4.5 3.5-5.1 mmol/L Chloride Level 104 101-111 mmol/L Carbon Dioxide Level 29 21-32 mmol/L Blood Urea Nitrogen 23 H 7-18 mg/dL Creatinine 1.0 0.5-1.3 mg/dL Glomerular Filtration Rate Calc 92 >90 mL/min Random Glucose 93 70-105 mg/dL Total Calcium 9.3 8.5-10.1 mg/dL Total Bilirubin 0.3 0.2-1.0 mg/dL Aspartate Amino Transf (AST/SGOT) 26 10-37 U/L Alanine Aminotransferase (ALT/SGPT) 13 12-78 U/L Alkaline Phosphatase 143 H 50-136 U/L Total Protein 7.0 6.0-8.3 g/dL Albumin 2.4 L 3.5-5.0 g/dL Red Blood Cell Morphology See comments ASSESSMENT: Right lower leg abscess, s/p incision and drainage on 09/24/2024. Infection with methicillin sensitive Staphylococcus aureus. Bilateral lower extremity lymphedema. Morbid obesity. PLAN: Continue cefazolin IV. Continue wound care. Continue pain management. Continue GI prophylaxis. We will monitor electrolytes. Patient has been approved to [facility] for outpatient IV antibiotic and will be discharged today. Okay to use the midline. This case was reviewed and discussed with my supervising physician and the above assessment and plan was formulated and agreed upon. ATTESTATION BY PHYSICIAN I have seen and examined the patient. I reviewed the documentation, medical decision making, and treatment plan as noted by the mid-level provider above. I agree with the findings and plan of care. JEFF RICHARDS MD, [facility] Sep 28, 2024 13:22
--- NOTE | 2024-09-28 13:51 | PN ---
PROGRESS NOTE Date of Service: Sep 28, 2024 Time of Service: 13:47 SUBJECTIVE: [ Patient is seen at the bedside for a wound care follow-up regarding the surgical wound on the right lateral leg status post incision and drainage of an abscess. Patient tolerating IV antibiotic therapy and tolerating wound care. No fever, no chills, no pain. Per primary patient is planned to be discharged today. Plan is follow-up in the outpatient wound care center. For continuity of care. ] REVIEW OF SYSTEMS CONSTITUTIONAL: Denies fever, chills, or fatigue. HEAD/FACE: No signs of trauma. EENT: Denies eye pain, blurred vision, double vision, or light sensitivity. RESPIRATORY: Denies shortness of breath, cough, wheezing CARDIOVASCULAR: Denies chest pain, palpitation, syncope GASTROINTESTINAL/ABDOMINAL: Denies abdominal pain, constipation, diarrhea, nausea or vomiting GENITOURINARY: Denies dysuria or hematuria. MUSCULOSKELETAL: Denies joint pain, tenderness, or trauma. INTEGUMENTARY: Open surgical wound on the right lateral leg. NEUROLOGICAL/PSYCH: Denies anxiety, depression, heat or cold intolerance. PHYSICAL EXAM EYES: Anicteric. Pupils equal and reactive. HENT: No oral thrush seen, moist Oral mucosa NECK: Supple, no JVD or thyromegaly. LUNGS: Good air entry. No rales, no rhonchi. CARDIOVASCULAR: S1, S2 regular. No murmur heard. ABDOMEN: Soft, non tender, bowel sounds present, no organomegaly CENTRAL NERVOUS SYSTEM: Awake, alert, oriented x 3. No focal deficits. SKIN: Open surgical wound on the right lateral leg. LYMPHATICS: No peripheral lymphadenopathy MUSCULOSKELETAL: No joint swelling, erythema or tenderness. EXTREMITIES: No cyanosis or clubbing; Right lower extremity slight erythema, abscess with several small openings, minimal drainage BACK: No deformity, no pressure ulcer. GENITOURINARY: No dysuria or hematuria Vital Signs (last 8hr) Date Time Temp Pulse Resp B/P (MAP) Pulse Ox O2 Delivery O2 Flow Rate FiO2 09/28/24 12:00 97.3 79 15 139/73 97 Room Air 0.0 09/28/24 08:00 95 Room Air* 0 21 09/28/24 07:48 97.5 73 15 156/90 94 Room Air 0.0 LABS: Laboratory: Test 09/28/24 11:43 09/28/24 05:39 09/27/24 03:40 Range/Units Whole Blood Glucose 95 70-110 MG/DL White Blood Count 9.8 4.8-10.8 K/uL Red Blood Count 4.48 L 4.50-6.20 MIL/uL Hemoglobin 10.8 L 14.0-18.0 g/dL Hematocrit 35.8 L 42-54 % Mean Corpuscular Volume 79.9 79-99 fL Mean Corpuscular Hemoglobin 24.1 L 27.0-33.0 pg Mean Corpuscular Hemoglobin Concent 30.2 L 32.0-36.0 g/dL Red Cell Distribution Width 15.7 H 11.0-15.5 % Platelet Count 394 130-400 K/uL Mean Platelet Volume 8.5 7.5-10.5 fL Immature Granulocyte % (Auto) 1.9 H 0-1 % Neutrophils (%) (Auto) 57.4 40.0-77.0 % Lymphocytes (%) (Auto) 24.2 21.0-51.0 % Monocytes (%) (Auto) 13.0 3.0-13.0 % Eosinophils (%) (Auto) 2.7 0.0-8.0 % Basophils (%) (Auto) 0.8 0.0-5.0 % Neutrophils # (Auto) 5.6 1.8-7.7 K/uL Lymphocytes # (Auto) 2.4 1.0-4.8 K/uL Monocytes # (Auto) 1.3 H 0.1-1.0 K/uL Eosinophils # (Auto) 0.26 0.00-0.70 K/uL Basophils # (Auto) 0.08 0.00-0.20 K/uL Absolute Immature Granulocyte (auto 0.19 0-1 K/uL Nucleated Red Blood Cells 0.0 0.0-0.19 % Sodium Level 139 136-145 mmol/L Potassium Level 4.5 3.5-5.1 mmol/L Chloride Level 104 101-111 mmol/L Carbon Dioxide Level 29 21-32 mmol/L Blood Urea Nitrogen 23 H 7-18 mg/dL Creatinine 1.0 0.5-1.3 mg/dL Glomerular Filtration Rate Calc 92 >90 mL/min Random Glucose 93 70-105 mg/dL Total Calcium 9.3 8.5-10.1 mg/dL Total Bilirubin 0.3 0.2-1.0 mg/dL Aspartate Amino Transf (AST/SGOT) 26 10-37 U/L Alanine Aminotransferase (ALT/SGPT) 13 12-78 U/L Alkaline Phosphatase 143 H 50-136 U/L Total Protein 7.0 6.0-8.3 g/dL Albumin 2.4 L 3.5-5.0 g/dL Red Blood Cell Morphology See comments DIAGNOSTICS / RADIOLOGY: [ ] PROBLEM LIST : Medical Problems: (1) Cellulitis, leg ICD Codes: L03.119 - Cellulitis of unspecified part of limb (2) Leg abscess ICD Codes: L02.419 - Cutaneous abscess of limb, unspecified PLAN: Clean the wound with normal saline or wound cleanser and pat dry. Iodoform packing with quarter-inch daily or as needed secure with dry dressing. Pain management. Follow-up in the outpatient Wound Care Service. With MATTHIAS Barba MD Sep 28, 2024 13:51
--- NOTE | 2024-09-28 14:46 | NUR ---
discharged gave patient printed discharge paperwork, educated patient and mother regarding follow up visits, diet, activity, medications, and signs and symptoms to report/return to ER for. per patient and family, they would like to call and schedule appointments themselves, provided them with phone numbers and addresses. Answered patient questions, patient and family understood.
--- NOTE | 2024-09-28 15:53 | DS ---
Discharge Summary Hospital Course Summary: A 49-year-old male, disabled, yi Marc, presented to the ED with complaints of right lower extremity redness, wound drainage, and pain. The patient's mother reported noticing smile boil on his leg 3 days prior, which progressively worsened, leading to the decision to seek medical attention. Upon evaluation, vital signs were stable with a blood pressure of 150/87, pulse 74, respiratory rate 16, and oxygen saturation of 97% on room air. Labs revealed a WBC of 10.2 , hemoglobin 11.7 , and a normal chemistry panel. Procalcitonin was 0.10. The patient was afebrile and denied any pain at the time of examination. A right lower extremity exam showed a draining wound with serosanguineous drainage. The patient was started on cefepime and vancomycin, and an ultrasound of the lower extremity revealed a 10.3 cm long and 1.9 cm wide non drainable fluid collection with surrounding hyperemia, indicating an abscess. He was admitted to the edical-surgical floor for further management of right lower extremity cellulitis with abscess. Infectious Disease was consulted, and it was recommended to continue the current antibiotic. The wound culture later returned positive for Staphylococcus areas. The patient underwent incision and drainage of the right lower extremity abscess, with significant improvement and no reported pain postprocedure. cefepime and vancomycin were discontinued and the patient was started on cefazolin for continued treatment. due to the patient's lymphedema an overweight status, a transfer to a snf facility for 2 weeks of IV antibiotics, wound care, and physical therapy was initially recommended. However, the patient expresses a preference for home discharge with outpatient IV antibiotic therapy at the [facility]. It was explained that these options will cover IV therapy only, and family members would need training for wound care at home. After discussing the pros and cons, the patient chose to proceed with home discharge. The patient will continue with IV antibiotic therapy at [facility]. The patient will be monitored for any sign of infection or complication post discharge at the clinic. The patient is stable at the time of discharge and was instructed to follow with the clinic as scheduled. Admissions Dean(s): General surgery Infectious disease Procedure(s): PATIENT: RODRIGUE RICHARD MR#: [id number] : 1975 SEX: M AGE: 49 LOCATION: 4BH ORDER 134 STATUS: [facility] [employer] REPORT#: [id number] SERVICE 43 REASON: PAD VS PVD ORDERING PHYSICIAN: LEVI DAIGLE PROCEDURE: ART B LE - US ARTERIAL BILAT LOW EXT DUPL US ARTERIAL BILAT LOW EXT DUPL REASON: PAD VS PVD COMPARISON: None TECHNIQUE: Bilateral lower extremity arterial Doppler was attempted. This was limited due to, particularly on the right, due to patient body habitus and a large amount of edema. FINDINGS: There is triphasic waveform in the right common femoral artery. There is elevated velocity in the proximal superficial femoral artery consistent with stenosis. Mid and distal SFA as well as the popliteal arteries were not visualized, posterior tibial and anterior tibial arteries also appear not well seen. There is triphasic flow present in the dorsalis pedis artery with preservation of flow velocity. Left leg shows triphasic waveforms present from common femoral artery through the popliteal artery, flow velocities are preserved. The posterior tibial and anterior tibial were not well visualized, there is biphasic waveform dorsalis pedis with a normal volume of flow. IMPRESSION: 1. Markedly limited exam with multiple vessels not well seen. 2. There is persistent triphasic waveform right dorsalis pedis artery suggesting absence of significant inflow occlusion. 3. There is biphasic waveform with good flow velocity left dorsalis pedis artery suggestive of absence of significant inflow occlusion. DICTATED BY: JAMES HUITRON MD DATE: 09/20/2442 ELECTRONICALLY SIGNED BY: JAMES HUITRON MD DATE: 09/20/2448 PATIENT: RODRIGUE RICHARD MR#: [id number] : 1975 SEX: M AGE: 49 LOCATION: 4BH ORDER 48 STATUS: ADM IN REPORT#: [id number] SERVICE 43 REASON: R/O ABSCESS ORDERING PHYSICIAN: LEVI DAIGLE PROCEDURE: LOW EXT WO - CT LOW EXT W/O CONTRAST CT LOW EXT W/O CONTRAST REASON: R/O ABSCESS COMPARISON: None TECHNIQUE: Images are obtained from distal femur through the tibiotalar joint in the axial plane. Sagittal and coronal reconstruction images were performed. Exam was performed without IV contrast. FINDINGS: There is extensive edema in the subcutaneous soft tissues. Underlying muscle bundles appears unremarkable. There are no discrete focal fluid collections to suggest a drainable abscess. There is no evidence of gas forming infection. The exam is somewhat limited by absence of IV contrast. Bones appear normal. There are no fractures and there is no evidence of osteomyelitis. IMPRESSION: 1. Extensive subcutaneous soft tissue swelling. 2. No focal abscess collection identified. DICTATED BY: JAMES HUITRON MD DATE: 09/20/24 0853 ELECTRONICALLY SIGNED BY: JAMES HUITRON MD DATE: 09/20/24 0859 PATIENT: RODRIGUE RICHARD MR#: [id number] : 1975 SEX: M AGE: 49 LOCATION: ED[facility] ORDER 1349 STATUS: [facility]M [facility] [employer] REPORT#: [id number] SERVICE 1344 REASON: R/O DVT ORDERING PHYSICIAN: LEVI DAIGLE PROCEDURE: VENOUS LEE - US VENOUS DOPPLER BILATERAL US VENOUS DOPPLER BILATERAL CLINICAL HISTORY: Lower extremity edema COMPARISON: None FINDINGS: Bilateral lower extremity venous Doppler ultrasound was performed. The greater saphenous, common femoral, deep femoral, femoral , popliteal veins are widely patent and easily compressible with the ultrasound probe. Calf veins were not visualized nor was the distal right superficial femoral vein.. IMPRESSION: Limited study with no identified deep venous thrombosis in the visualized veins. DICTATED BY: MAYA MARIO DO DATE: 09/19/241713 ELECTRONICALLY SIGNED BY: MAYA MARIO DO DATE: 09/19/24 171 PATIENT: RODRIGUE RICHARD MR#: [id number] : 1975 SEX: M AGE: 49 LOCATION: [facility] ORDER 1406 STATUS: ADM IN REPORT#: [id number] SERVICE 1405 REASON: ABSCESS ORDERING PHYSICIAN: LEVI DAIGLE PROCEDURE: SOFT LOW E - US SOFT TISSUE LOWER EXTREMITY ULTRASOUND SOFT TISSUE LOWER EXTREMITY RIGHT INDICATION: Abscess evaluation. COMPARISON: None TECHNIQUE: Multiplanar sonographic images of the posterolateral right calf were obtained earlier in real-time using grayscale and color Doppler technique, and subsequently made available for review. FINDINGS/IMPRESSION: 10.3 cm long by 1.9 cm wide complex nonorganized nondrainable fluid collection demonstrated along the posterolateral right calf with surrounding hyperemia, but still suggesting evolving abscess. DICTATED BY: ISA ALTAMIRANO MD DATE: 09/19/241438 ELECTRONICALLY SIGNED BY: ISA ALTAMIRANO MD DATE: 09/19/24 144 PATIENT: RODRIGUE RICHARD MR#: [id number] : 1975 SEX: M AGE: 49 LOCATION: [facility] ORDER 43 STATUS: ADM IN REPORT#: [id number] SERVICE 42 REASON: PICC PLACEMENT VERIFICATION ORDERING PHYSICIAN: JEFF RICHARDS MD PROCEDURE: CXR1VW - CHEST 1VW CHEST 1VW HISTORY: PICC line placement COMPARISON: 08/05/2019 FINDINGS: A frontal projection of the chest was obtained. Mild bilateral pulmonary infiltrates are seen may be related to mild pulmonary vascular congestion with possible superimposed pneumonitis. The heart is borderline enlarged. Degenerative changes are seen. Right venous catheter is seen with distal tip in the plane of the superior vena cava. No evidence of aortic calcification is seen. IMPRESSION: 1. Mild bilateral pulmonary infiltrates are seen may be related to mild pulmonary vascular congestion with possible superimposed pneumonitis. DICTATED BY: PETTY LEE MD DATE: 09/27/242222 ELECTRONICALLY SIGNED BY: PETTY LEE MD DATE: 09/27/242228 Assessment/Plan: ASSESSMENT: Right lower leg abscess, s/p incision and drainage on 09/24/2024. Infection with methicillin sensitive Staphylococcus aureus. Bilateral lower extremity lymphedema. Morbid obesity, BMI 48.8 kg/M2 Hypertension Anemia Hypothyroidism Discharge Instructions: Follow-up with PCP in 3-5 days Continue IV antibiotic treatment at [facility] tomorrow Home Medications: Reported Medications Lorazepam (Ativan) 1 Mg Tablet, 1 TAB PO Q6HPRN PRN for anxiety for 30 Days, #60 TAB 0 Refills 09/19/24 Timolol Maleate (Timolol Maleate) 0.25 % Zoya.gel, 1 DROP OS DAILY for 30 Days, #5 ML 0 Refills 09/19/24 Brimonidine Tartrate (Brimonidine Tartrate) 0.2 % Drops, 1 DROP OS HS, #10 ML 0 Refills 09/19/24 Latanoprost (Latanoprost) 0.005 % Drops, 1 DROP OS HS, ML 0 Refills 09/19/24 Ferrous Sulfate (Iron) 325 Mg (65 Mg Iron) Tablet, 1 TAB PO BEDTIME for 30 Days, #60 TAB 0 Refills 09/19/24 Hydralazine HCl (Hydralazine HCl) 25 Mg Tablet, 50 MG PO BID, TAB 09/19/24 Irbesartan (Irbesartan) 300 Mg Tablet, 1 TAB PO DAILY for 30 Days, #30 TAB 0 Refills 09/19/24 Sennosides (Senna) 8.6 Mg Tablet, 2 TAB PO BID for constipation for 25 Days, #100 TAB 0 Refills 09/19/24 Omeprazole (Omeprazole) 40 Mg Capsule.dr, 1 CAP PO DAILY for 30 Days, #30 CAP 0 Refills 09/19/24 [Alegra] No Conflict Check, 1 TAB DAILY 09/19/24 [Vitamin D ] No Conflict Check, 1000 UNITS PO DAILY 09/19/24 Aspirin (Aspirin EC) 81 Mg Tablet.dr, 81 MG PO DAILY, TAB 09/19/24 Furosemide (Furosemide) 80 Mg Tablet, 40 MG PO DAILY, TAB 09/19/24 Bupropion HCl (Bupropion Xl) 150 Mg Tab.er.24h, 300 MG PO DAILY, TAB 09/19/24 Citalopram Hydrobromide (Citalopram HBr) 40 Mg Tablet, 90 MG PO DAILY, TAB 09/19/24 Levothyroxine Sodium (Levothyroxine) 25 Mcg Capsule, 25 MCG PO AT 0600, CAP 09/19/24 Continued Medications: [Alegra] () 1 TAB DAILY Aspirin (Aspirin EC) 81 Mg Tablet.dr 81 MG PO DAILY, TAB Brimonidine Tartrate (Brimonidine Tartrate) 0.2 % Drops 1 DROP OS HS, #10 ML 0 Refills Bupropion HCl (Bupropion Xl) 150 Mg Tab.er.24h 300 MG PO DAILY, TAB Citalopram Hydrobromide (Citalopram HBr) 40 Mg Tablet 90 MG PO DAILY, TAB Ferrous Sulfate (Iron) 325 Mg (65 Mg Iron) Tablet 1 TAB PO BEDTIME for 30 Days, #60 TAB 0 Refills Furosemide (Furosemide) 80 Mg Tablet 40 MG PO DAILY, TAB Hydralazine HCl (Hydralazine HCl) 25 Mg Tablet 50 MG PO BID, TAB Irbesartan (Irbesartan) 300 Mg Tablet 1 TAB PO DAILY for 30 Days, #30 TAB 0 Refills Latanoprost (Latanoprost) 0.005 % Drops 1 DROP OS HS, ML 0 Refills Levothyroxine Sodium (Levothyroxine) 25 Mcg Capsule 25 MCG PO AT 0600, CAP Lorazepam (Ativan) 1 Mg Tablet 1 TAB PO Q6HPRN PRN for anxiety for 30 Days, #60 TAB 0 Refills Omeprazole (Omeprazole) 40 Mg Capsule.dr 1 CAP PO DAILY for 30 Days, #30 CAP 0 Refills Sennosides (Senna) 8.6 Mg Tablet 2 TAB PO BID for constipation for 25 Days, #100 TAB 0 Refills Timolol Maleate (Timolol Maleate) 0.25 % Zoya.gel 1 DROP OS DAILY for 30 Days, #5 ML 0 Refills [Vitamin D ] () 1000 UNITS PO DAILY Time spent arranging discharge: 1-30 minutes ATTESTATION BY PHYSICIAN I have seen and examined the patient. I reviewed the documentation, medical de cision making, and treatment plan as noted by the resident provider above. I agree with the findings and plan of care. Kaleigh Tobar MD, GERARDO MD Sep 28, 2024 15:53
== END 2024-09-28 14:50 | disposition home or self-care (01) | DRG 603 ==
LOC: EDH 10:07 → EDHIP 11:55 → 4BH 18:00
PROVIDERS: ADMIT Internal Medicine; ATTEND Internal Medicine
PROC: 5A09357 Assistance with Respiratory Ventilation, Less than 24 Consecutive Hours, Continuous Positive Airway Pressure (ICD-10-PCS; 2024-09-24)
PROC: 0J9N0ZZ Drainage of Right Lower Leg Subcutaneous Tissue and Fascia, Open Approach (ICD-10-PCS; principal; 2024-09-24 09:34)
DX: L03.115 Cellulitis of right lower limb (principal); Z68.42 Body mass index [BMI] 45.0-49.9, adult; E66.01 Morbid (severe) obesity due to excess calories; L02.415 Cutaneous abscess of right lower limb; I89.0 Lymphedema, not elsewhere classified; D64.9 Anemia, unspecified; I10 Essential (primary) hypertension; G47.33 Obstructive sleep apnea (adult) (pediatric); B95.61 Methicillin susceptible Staphylococcus aureus infection as the cause of diseases classified elsewhere; E03.9 Hypothyroidism, unspecified; L02.429 Furuncle of limb, unspecified; Z79.899 Other long term (current) drug therapy
CPT/HCPCS: 36415; 71045; 73700; 76882; 80048; 80053; 80061; 80202; 82948; 83036; 83605; 84145; 85025; 85610; 87070; 87076; 87086; 87186; 93925; 93970; 96365; 96366; 96368; 99285; A4450; A6248; C1894; G0378; J0692; J1650; J2003; J2250; J2704; J3010; J3370; J3490; J7120; 3370; A4216; A4222; A4223; J0665; J0690

== ENCOUNTER → 2024-10-04 | Outpatient (CLI) | payer MEDICARE ==
[~2024-10-04] MED LIST changes: -ALBUTEROL SULFATE 0.083% 2.5 MG/3 ML INH IH ONE; +ALEGRA; +ASPI-1443 PO; +BRIM5DRO5 OS; +BUPR-49 PO; +CITA-108 PO; +FERR-82 PO; +FURO80TA3 PO; +HYDR25TA67 PO; +IRBE300T26 PO; +LATA2.5D14 OS; +LEVO25CA4 PO; +LIDOCAINE HCL 4% LTA SOL 4 ML VIAL TP ONE; +LORA-192 PO; +OMEP40CA21 PO; +SENN8.6T32 PO; +TIMXE255OS OS; +VITAMIN D PO
== END | disposition home or self-care (01) ==
LOC: WHH 10:17
PROVIDERS: ATTEND Family Medicine
DX: T81.31XA Disruption of external operation (surgical) wound, not elsewhere classified, initial encounter (principal); L97.812 Non-pressure chronic ulcer of other part of right lower leg with fat layer exposed; L02.415 Cutaneous abscess of right lower limb; I89.0 Lymphedema, not elsewhere classified; I10 Essential (primary) hypertension; E03.9 Hypothyroidism, unspecified; F32.A Depression, unspecified; Y83.8 Other surgical procedures as the cause of abnormal reaction of the patient, or of later complication, without mention of misadventure at the time of the procedure; Y92.238 Other place in hospital as the place of occurrence of the external cause
CPT/HCPCS: G0463; A6250; A6197; A4450; A6260

== ENCOUNTER → 2024-10-18 | Outpatient (CLI) | payer MEDICARE | END | disposition home or self-care (01) | LOC: WHH 09:44 | PROVIDERS: ATTEND Family Medicine | DX: T81.31XD Disruption of external operation (surgical) wound, not elsewhere classified, subsequent encounter (principal); L97.812 Non-pressure chronic ulcer of other part of right lower leg with fat layer exposed; L02.415 Cutaneous abscess of right lower limb; I89.0 Lymphedema, not elsewhere classified; I10 Essential (primary) hypertension; E03.9 Hypothyroidism, unspecified; F32.A Depression, unspecified; G47.33 Obstructive sleep apnea (adult) (pediatric); E66.01 Morbid (severe) obesity due to excess calories; Z68.42 Body mass index [BMI] 45.0-49.9, adult; Y83.8 Other surgical procedures as the cause of abnormal reaction of the patient, or of later complication, without mention of misadventure at the time of the procedure | CPT/HCPCS: G0463; A6196 ==

== ENCOUNTER → 2024-11-01 | Outpatient (CLI) | payer MEDICARE | END | disposition home or self-care (01) | LOC: WHH 09:50 | PROVIDERS: ATTEND Family Medicine | DX: T81.89XD Other complications of procedures, not elsewhere classified, subsequent encounter (principal); L97.812 Non-pressure chronic ulcer of other part of right lower leg with fat layer exposed; L02.415 Cutaneous abscess of right lower limb; I89.0 Lymphedema, not elsewhere classified; I10 Essential (primary) hypertension; E03.9 Hypothyroidism, unspecified; G47.33 Obstructive sleep apnea (adult) (pediatric); E66.01 Morbid (severe) obesity due to excess calories; F32.A Depression, unspecified; Z68.42 Body mass index [BMI] 45.0-49.9, adult; Z79.899 Other long term (current) drug therapy; Y83.8 Other surgical procedures as the cause of abnormal reaction of the patient, or of later complication, without mention of misadventure at the time of the procedure | CPT/HCPCS: G0463; A4450 ==

== ENCOUNTER → 2024-11-15 | Outpatient (CLI) | payer MEDICARE ==
[~2024-11-15] MED LIST changes: -LIDOCAINE HCL 4% LTA SOL 4 ML VIAL TP ONE
== END | disposition home or self-care (01) ==
LOC: WHH 09:56
PROVIDERS: ATTEND Family Medicine
DX: T81.89XD Other complications of procedures, not elsewhere classified, subsequent encounter (principal); L97.812 Non-pressure chronic ulcer of other part of right lower leg with fat layer exposed; L02.415 Cutaneous abscess of right lower limb; I89.0 Lymphedema, not elsewhere classified; I10 Essential (primary) hypertension; E03.9 Hypothyroidism, unspecified; G47.33 Obstructive sleep apnea (adult) (pediatric); E66.01 Morbid (severe) obesity due to excess calories; F32.A Depression, unspecified; Z68.42 Body mass index [BMI] 45.0-49.9, adult; Z79.899 Other long term (current) drug therapy; Y83.8 Other surgical procedures as the cause of abnormal reaction of the patient, or of later complication, without mention of misadventure at the time of the procedure
CPT/HCPCS: G0463; A6212

== ENCOUNTER → 2024-12-06 | Outpatient (CLI) | payer MEDICARE | END | disposition home or self-care (01) | LOC: WHH 09:47 | PROVIDERS: ATTEND Family Medicine | DX: T81.31XD Disruption of external operation (surgical) wound, not elsewhere classified, subsequent encounter (principal); L97.812 Non-pressure chronic ulcer of other part of right lower leg with fat layer exposed; L02.415 Cutaneous abscess of right lower limb; I89.0 Lymphedema, not elsewhere classified; I10 Essential (primary) hypertension; E03.9 Hypothyroidism, unspecified; G47.33 Obstructive sleep apnea (adult) (pediatric); E66.01 Morbid (severe) obesity due to excess calories; F32.A Depression, unspecified; Z68.42 Body mass index [BMI] 45.0-49.9, adult; Z79.899 Other long term (current) drug therapy; Y83.8 Other surgical procedures as the cause of abnormal reaction of the patient, or of later complication, without mention of misadventure at the time of the procedure | CPT/HCPCS: G0463; A4450 ==

== ENCOUNTER → 2025-01-03 | Outpatient (CLI) | payer MEDICARE ==
[~2025-01-03] MED LIST changes: -LEVO25CA4 PO; +LEVO25CA5 PO
== END | disposition home or self-care (01) ==
LOC: WHH 09:47
PROVIDERS: ATTEND Family Medicine
DX: T81.89XD Other complications of procedures, not elsewhere classified, subsequent encounter (principal); L97.812 Non-pressure chronic ulcer of other part of right lower leg with fat layer exposed; L02.415 Cutaneous abscess of right lower limb; I89.0 Lymphedema, not elsewhere classified; I10 Essential (primary) hypertension; E03.9 Hypothyroidism, unspecified; G47.33 Obstructive sleep apnea (adult) (pediatric); E66.01 Morbid (severe) obesity due to excess calories; F32.A Depression, unspecified; Z68.42 Body mass index [BMI] 45.0-49.9, adult; Z79.899 Other long term (current) drug therapy; Y83.8 Other surgical procedures as the cause of abnormal reaction of the patient, or of later complication, without mention of misadventure at the time of the procedure
CPT/HCPCS: G0463; A6212